=== PATIENT | male | born 1965 | race Caucasian/White ===

== ENCOUNTER 2024-01-10 14:56 | Outpatient (AMB) | payer OTHER, SELFPAY ==
--- NOTE | 2024-01-10 15:10 | HO.NEPHOV ---
HPI HPI Comments History of Present Illness Details I had the privilege of seeing Kunal in consultation for accelerated hypertension. He recently had left-sided hemiplegia due to recent subacute infarct in the right frontal lobe in September. Further imaging showed chronic lacunar infarcts bilaterally in the frontal lobe. He is not known to have diabetes. He had echocardiogram which showed normal ejection fraction. He had a bubble study which was negative. There was a question of him being lupus anticoagulant positive. He has seen Neurology and is going to be followed by Hematology. He has not seen any physicians for a long time prior to all these events. Currently he is compliant with the medications. He denies any history of sleep apnea, hypokalemia, hypercalcemia, uncontrolled thyroid disorders. He has not very strict with low-sodium diet. He was accompanied by his during this office visit. [facility]LY [facility], LATER [facility] Medical History (Updated 01/10/24 @ 15:47 by Ezio Gage MD) Accelerated hypertension Left hemiparesis Pure hypercholesterolemia Acute CVA (cerebrovascular accident) Surgical History (Updated 01/10/24 @ 15:14 by Malgorzata Dalton MA) History of hernia repair History of kidney surgery Family History (Updated 01/10/24 @ 15:15 by Malgorzata Dalton MA) Mother Cancer Father Heart disease Social History (Updated 01/10/24 @ 15:15 by Malgorzata Dalton MA) Alcohol intake: never Patient Tobacco Use Status: Never used Tobacco Vital Signs 01/10/24 15:11 Height 5 ft 8 in Weight 240 lb 2 oz BMI 36.5 BP 150/100 H Blood Pressure Location Lt brachial Position Sitting Pulse 78 Pulse Source Pulse Oximeter Pulse Oximetry (%) 98 Oxygen Delivery Method Room Air Physical Exam Vital Signs: Last Vital Signs Pulse 78 01/10/24 15:11 BP 150/100 H 01/10/24 15:11 Pulse Ox 98 01/10/24 15:11 Oxygen Delivery Method Room Air 01/10/24 15:11 BMI result Body Mass Index 36.5 Const General: comfortable and no acute distress Orientation/consciousness: patient oriented x3 HEENT Head: Yes normocephalic Mouth: Normal oral and palatal mucosa present Eyes EOM: EOMs intact bilaterally Neck Neck: Yes supple Resp Auscultation: clear to auscultation bilaterally Cardio Jugular venous distension: no JVD Rate: regular rate GI Palpation (GI): Soft to palpation Auscultation: normal bowel sounds Skin General skin exam: no rashes or lesions noted Neuro General: patient oriented x3 Extrem General: Yes no pedal edema Assessment & Plan Assessment & Plan (1) Accelerated hypertension: Code(s): I10 - Essential (primary) hypertension Plan Kunal most likely had hypertension for a long time. He never had proper medical follow-up prior to all these events. He is on multiple antihypertensive medications now with a better blood pressure control even though it has not optimal. He needs to be on a low-sodium diet. I started him on chlorthalidone 25 mg daily. If not done, I plan to do a Doppler of his renal arteries given his recent vascular events. He is on lipid-lowering agents. He may need a sleep study. He should continue lifestyle modification. Follow-up lab work ordered. I will continue to work him up rule out secondary etiology. Further management is pending evolving data. All his and his 's questions were answered. Follow-up appointment given. Orders: Orders Creatinine 01/17/24 I10 - Essential (primary) hypertension Blood Urea Nitrogen 01/17/24 I10 - Essential (primary) hypertension Calcium 01/17/24 I10 - Essential (primary) hypertension Electrolytes 01/17/24 I10 - Essential (primary) hypertension Protein Creatinine Ratio, Ur 01/17/24 I10 - Essential (primary) hypertension Medications: New chlorthalidone 25 mg PO DAILY 30 tabs 3RF 30 days Coding Level of Care Code New Pt Level 4 (43315) Diagnoses Accelerated hypertension I10 Results Reviewed Nephrology Results: Sodium 139 mmol/L (135-145) 01/17/24 Potassium 3.7 mmol/L (3.3-5.1) 01/17/24 Chloride 106 mmol/L (96-108) 01/17/24 Carbon Dioxide 29 mmol/L (22-29) 01/17/24 BUN 13 mg/dL (9-16) 01/17/24 Creatinine 0.89 mg/dL (0.5-1.4) 01/17/24 Calcium 9.0 mg/dL (8.4-10.2) 01/17/24 Urine Creatinine 220.97 mg/dL 01/17/24 Protein/Creatinin Ratio 0.05 (<0.2) 01/17/24
[2024-01-10 15:11] VITALS: BP 150/100; PULSE 78; O2SAT 98; BMI 36.5
== END 2024-01-10 15:54 | disposition home or self-care (01) ==
LOC: HO.HKAS 14:56
PROVIDERS: PCP Internal Medicine; Referring Provider Internal Medicine; Visit Provider Internal Medicine Nephrology
DX: I10 Essential (primary) hypertension (principal)
CPT/HCPCS: 99204

== ENCOUNTER → 2024-01-10 14:56 | Outpatient (BNVA) | payer OTHER, SELFPAY | PROVIDERS: PCP Internal Medicine; Referring Provider Internal Medicine; Visit Provider Internal Medicine Nephrology ==

== ENCOUNTER 2024-01-17 09:08 | Outpatient (REF) | payer OTHER, SELFPAY ==
[2024-01-17 17:05] LABS: Anion Gap 8 (12-20); Blood Urea Nitrogen 13 mg/dL (9-16); Carbon Dioxide 29 mmol/L (22-29); Chloride 106 mmol/L (96-108); Estimated Glomerular Filt Rate > 60; Potassium 3.7 mmol/L (3.3-5.1); Sodium 139 mmol/L (135-145)
[2024-01-17 17:17] LABS: Creatinine Urine 220.97 mg/dL; Protein/Creatinine Ratio, Ur 0.05 (<0.2); Total Protein Urine Random 12 mg/dL (<12)
== END 2024-01-17 09:09 | disposition home or self-care (01) ==
LOC: HO.HKASLDS 09:08
PROVIDERS: Visit Provider Internal Medicine Nephrology
DX: I10 Essential (primary) hypertension (principal)
CPT/HCPCS: 36415; 80051; 82310; 82565; 82570; 84156; 84520

== ENCOUNTER 2024-01-24 15:52 | Outpatient (AMB) | payer OTHER, SELFPAY ==
[2024-01-24 15:56] VITALS: BP 148/98; PULSE 97; O2SAT 98; BMI 36.4
--- NOTE | 2024-01-24 15:56 | HO.NEPHOV ---
HPI HPI Comments History of Present Illness Details I had the privilege of seeing Kunal in follow up for accelerated hypertension. He recently had left-sided hemiplegia due to recent subacute infarct in the right frontal lobe in September. Further imaging showed chronic lacunar infarcts bilaterally in the frontal lobe. He is not known to have diabetes. He had echocardiogram which showed normal ejection fraction. He had a bubble study which was negative. There was a question of him being lupus anticoagulant positive . He has seen Neurology and and was seen by Hematology. He has not seen any physicians for a long time prior to all these events. Currently he is compliant with the medications. He denies any history of sleep apnea, hypokalemia, hypercalcemia, uncontrolled thyroid disorders. He has not very strict with low-sodium diet. He feels tired. He was accompanied by his during this office visit. [facility]MERLY [facility] Medical History (Updated 01/10/24 @ 15:47 by Ezio Gage MD) Accelerated hypertension Left hemiparesis Pure hypercholesterolemia Acute CVA (cerebrovascular accident) Surgical History History of hernia repair History of kidney surgery Family History Mother Cancer Father Heart disease Social History Alcohol intake: never Patient Tobacco Use Status: Never used Tobacco Vital Signs 01/24/24 15:56 Height 5 ft 8 in Weight 239 lb 6 oz BMI 36.4 BP 148/98 H Blood Pressure Location Lt brachial Position Sitting Pulse 97 Pulse Source Pulse Oximeter Pulse Oximetry (%) 98 Oxygen Delivery Method Room Air Physical Exam Vital Signs: Last Vital Signs Pulse 97 01/24/24 15:56 BP 148/98 H 01/24/24 15:56 Pulse Ox 98 01/24/24 15:56 Oxygen Delivery Method Room Air 01/24/24 15:56 BMI result Body Mass Index 36.4 Const General: comfortable and no acute distress Orientation/consciousness: patient oriented x3 HEENT Head: Yes normocephalic Mouth: Normal oral and palatal mucosa present Eyes EOM: EOMs intact bilaterally Neck Neck: Yes supple Resp Auscultation: clear to auscultation bilaterally Cardio Jugular venous distension: no JVD Rate: regular rate GI Palpation (GI): Soft to palpation Auscultation: normal bowel sounds General: Yes no CVA tenderness Back/Spine/Pelvis Back: no CVA tenderness Skin General skin exam: no rashes or lesions noted Neuro General: patient oriented x3 Extrem General: Yes no pedal edema Assessment & Plan Assessment & Plan (1) Accelerated hypertension: Code(s): I10 - Essential (primary) hypertension Plan Kunal most likely had hypertension for a long time. He never had proper medical follow-up prior to all these events. He is on multiple antihypertensive medications now with a better blood pressure control even though it has not optimal. He needs to be on a low-sodium diet. I started him on chlorthalidone 25 mg daily at the last visit along with increase in Labetalol to 400 mg bid. I may change his Amlodipine to Nifedioine at next visit. I ordered Doppler of his renal arteries given his recent vascular events. He is on lipid-lowering agents. He should continue lifestyle modification. Follow-up lab work ordered. I will continue to work him up rule out secondary etiology. Further management is pending evolving data. All his and his 's questions were answered. All medications refilled. Follow-up appointment given. Medications: New lisinopril 40 mg PO DAILY 90 tabs 4RF atorvastatin 80 mg PO DAILY 90 tabs 0RF amlodipine 5 mg PO DAILY 90 tabs 3RF Changed From labetalol 400 mg PO BID To labetalol 400 mg (2 x 200 mg) PO BID 90 days 360 tabs 4RF From chlorthalidone 25 mg PO DAILY 30 days 30 tabs 3RF To chlorthalidone 25 mg PO DAILY 90 days 90 tabs 3RF Coding Level of Care Code Est Pt Level 4 (76140) Diagnoses Accelerated hypertension I10 Results Reviewed Nephrology Results: Sodium 139 mmol/L (135-145) 01/17/24 Potassium 3.7 mmol/L (3.3-5.1) 01/17/24 Chloride 106 mmol/L (96-108) 01/17/24 Carbon Dioxide 29 mmol/L (22-29) 01/17/24 BUN 13 mg/dL (9-16) 01/17/24 Creatinine 0.89 mg/dL (0.5-1.4) 01/17/24 Calcium 9.0 mg/dL (8.4-10.2) 01/17/24 Urine Creatinine 220.97 mg/dL 01/17/24 Protein/Creatinin Ratio 0.05 (<0.2) 01/17/24
== END 2024-01-24 16:43 | disposition home or self-care (01) ==
PROVIDERS: PCP Internal Medicine; Visit Provider Internal Medicine Nephrology
DX: I10 Essential (primary) hypertension (principal)
CPT/HCPCS: 99214

== ENCOUNTER → 2024-01-24 15:52 | Outpatient (BNVA) | payer OTHER, SELFPAY | PROVIDERS: PCP Internal Medicine; Visit Provider Internal Medicine Nephrology | DX: I10 Essential (primary) hypertension (principal) ==

== ENCOUNTER 2024-02-07 08:45 | Outpatient (REF) | payer OTHER, SELFPAY ==
--- NOTE | ~2024-02-07 | US_ITS ---
EXAMINATION: ULTRASOUND RENAL WITH DOPPLER CLINICAL INFORMATION: Hypertension COMPARISON: None. TECHNIQUE: Real-time grayscale, color Doppler, and duplex Doppler evaluation of the kidneys and renal vasculature was performed. FINDINGS: RENAL MEASUREMENTS: Right: 10.4 x 5.5 x 5.1 cm (Sag x AP x TV) Left: 10.5 x 5.6 x 4.5 cm (Sag x AP x TV) The renal parenchyma appears normal. No hydronephrosis or nephrolithiasis. DOPPLER INTERROGATION: Aorta: 127 cm/sec Right Main Renal Artery: Proximal: 115 cm/sec Mid: 110 cm/sec Distal: 145 cm/sec Right Segmental Renal Artery Resistive Indices: Upper: 0.6 Mid: 0.64 Lower: 0.67 Left Main Renal Artery: Proximal: 110 cm/sec Mid: 137 cm/sec Distal: 97 cm/sec Left Segmental Renal Artery Resistive Indices: Upper: 0.66 Mid: 0.66 Lower: 0.64 The bilateral renal veins are patent. US/US renal doppler IMPRESSION: Normal duplex ultrasound of the renal arteries. Bilateral kidneys appear normal
--- NOTE | ~2024-02-07 | US_ITS ---
EXAMINATION: ULTRASOUND RENAL WITH DOPPLER CLINICAL INFORMATION: Hypertension COMPARISON: None. TECHNIQUE: Real-time grayscale, color Doppler, and duplex Doppler evaluation of the kidneys and renal vasculature was performed. FINDINGS: RENAL MEASUREMENTS: Right: 10.4 x 5.5 x 5.1 cm (Sag x AP x TV) Left: 10.5 x 5.6 x 4.5 cm (Sag x AP x TV) The renal parenchyma appears normal. No hydronephrosis or nephrolithiasis. DOPPLER INTERROGATION: Aorta: 127 cm/sec Right Main Renal Artery: Proximal: 115 cm/sec Mid: 110 cm/sec Distal: 145 cm/sec Right Segmental Renal Artery Resistive Indices: Upper: 0.6 Mid: 0.64 Lower: 0.67 Left Main Renal Artery: Proximal: 110 cm/sec Mid: 137 cm/sec Distal: 97 cm/sec Left Segmental Renal Artery Resistive Indices: Upper: 0.66 Mid: 0.66 Lower: 0.64 The bilateral renal veins are patent. US/US renal BI IMPRESSION: Normal duplex ultrasound of the renal arteries. Bilateral kidneys appear normal
== END 2024-02-07 08:46 | disposition home or self-care (01) ==
LOC: HO.US 08:45
PROVIDERS: PCP Internal Medicine; Visit Provider Internal Medicine Nephrology
DX: I10 Essential (primary) hypertension (principal)
CPT/HCPCS: 76775; 93975

== ENCOUNTER 2024-03-06 10:01 | Outpatient (AMB) | payer OTHER, SELFPAY ==
[2024-03-06 10:07] VITALS: BP 90/60; PULSE 68; O2SAT 97; BMI 35.7
--- NOTE | 2024-03-06 10:07 | HO.NEPHOV ---
Vital Signs 03/06/24 10:07 Height 5 ft 8 in Weight 234 lb 8 oz BMI 35.7 BP 90/60 Blood Pressure Location Lt brachial Position Sitting Pulse 68 Pulse Source Pulse Oximeter Pulse Oximetry (%) 97 Oxygen Delivery Method Room Air Intake Visit Reasons: Low BP Telecommunication Engineer Required: No Accompanied by: Spouse Allergies No Known Allergies Allergy (Verified 03/06/24 10:11) HPI Comments Details: I had the privilege of seeing Kunal in follow up for accelerated hypertension. He has H/O left-sided hemiplegia due to subacute infarct in the right frontal lobe in September. Further imaging showed chronic lacunar infarcts bilaterally in the frontal lobe. He is not known to have diabetes. He had echocardiogram which showed normal ejection fraction. He had a bubble study which was negative. There was a question of him being lupus anticoagulant positive . He has seen Neurology and and was seen by Hematology. He has not seen any physicians for a long time prior to all these events. He recently had been feeling numbness on right side of face. His blood pressure was running low. He had MRI which showed new two strokes. He denies any history of sleep apnea, hypokalemia, hypercalcemia, uncontrolled thyroid disorders. He was accompanied by his during this office visit. [facility] Medical History (Updated 01/10/24 @ 15:47 by Ezio Gage MD) Accelerated hypertension Left hemiparesis Pure hypercholesterolemia Acute CVA (cerebrovascular accident) Surgical History History of hernia repair History of kidney surgery Family History Mother Cancer Father Heart disease Social History Alcohol intake: never Patient Tobacco Use Status: Never used Tobacco Physical Exam Vital Signs: Last Vital Signs Pulse 68 03/06/24 10:07 BP 90/60 03/06/24 10:07 Pulse Ox 97 03/06/24 10:07 Oxygen Delivery Method Room Air 03/06/24 10:07 BMI result Body Mass Index 35.7 Const General: comfortable and no acute distress Orientation/consciousness: patient oriented x3 HEENT Head: Yes normocephalic Mouth: Normal oral and palatal mucosa present Eyes EOM: EOMs intact bilaterally Neck Neck: Yes supple Resp Auscultation: clear to auscultation bilaterally Cardio Jugular venous distension: no JVD Rate: regular rate GI Palpation (GI): Soft to palpation Auscultation: normal bowel sounds General: Yes no CVA tenderness Back/Spine/Pelvis Back: no CVA tenderness Skin General skin exam: no rashes or lesions noted Neuro General: patient oriented x3 and moves all extremities Extrem General: Yes no pedal edema Results Reviewed Nephrology Results: Sodium 139 mmol/L (135-145) 01/17/24 Potassium 3.7 mmol/L (3.3-5.1) 01/17/24 Chloride 106 mmol/L (96-108) 01/17/24 Carbon Dioxide 29 mmol/L (22-29) 01/17/24 BUN 13 mg/dL (9-16) 01/17/24 Creatinine 0.89 mg/dL (0.5-1.4) 01/17/24 Calcium 9.0 mg/dL (8.4-10.2) 01/17/24 Urine Creatinine 220.97 mg/dL 01/17/24 Protein/Creatinin Ratio 0.05 (<0.2) 01/17/24 Renal US 02/07/24 Assessment & Plan Assessment & Plan (1) Accelerated hypertension: Code(s): I10 - Essential (primary) hypertension Category: Medical Plan Kunal most likely had hypertension for a long time. He never had proper medical follow-up prior to all these events. He is on multiple antihypertensive medications . His blood pressure has been running low with symptoms. I discontinued his amlodipine. He needs to be on a low-sodium diet. Doppler of his renal arteries was done, given his recent vascular events. It did not show any renal artery stenosis He is on lipid-lowering agents. He should continue lifestyle modification. I will continue to optimize his medications based on evolving data. All his and his 's questions were answered. Follow-up appointment given. Medications: Discontinued amlodipine Discontinued Reason: Doctor's Order 5 mg PO DAILY 90 tabs 3RF Coding Level of Care Code Est Pt Level 4 (55481) Diagnoses Accelerated hypertension I10
== END 2024-03-06 10:41 | disposition home or self-care (01) ==
PROVIDERS: PCP Internal Medicine; Visit Provider Internal Medicine Nephrology
DX: I10 Essential (primary) hypertension (principal)
CPT/HCPCS: 99214

== ENCOUNTER → 2024-03-06 10:01 | Outpatient (BNVA) | payer OTHER, SELFPAY | PROVIDERS: PCP Internal Medicine; Visit Provider Internal Medicine Nephrology ==

== ENCOUNTER 2024-03-20 09:13 | Outpatient (AMB) | payer OTHER, SELFPAY ==
--- NOTE | 2024-03-20 09:31 | HO.NEPHOV_ITS ---
Vital Signs 03/20/24 09:33 Height 5 ft 8 in Weight 237 lb BMI 36.0 BP 126/80 Blood Pressure Location Lt brachial Position Sitting Pulse 63 Pulse Source Pulse Oximeter Pulse Oximetry (%) 97 Oxygen Delivery Method Room Air Intake Visit Reasons: 2 wks follow up/ Conf w/ Broker Associate Required: No Accompanied by: Spouse Allergies No Known Allergies Allergy (Verified 03/20/24 09:34) HPI Comments Details: Kunal was in follow up for accelerated hypertension. He has H/O left-sided hemiplegia due to subacute infarct in the right frontal lobe in September. Further imaging showed chronic lacunar infarcts bilaterally in the frontal lobe. He is not known to have diabetes. He had echocardiogram which showed normal ejection fraction. He had a bubble study which was negative. There was a question of him being lupus anticoagulant positive . He has seen Neurology and and was seen by Hematology. He has not seen any physicians for a long time prior to all these events. He recently had been feeling numbness on right side of face. He had MRI which showed new two strokes. He denies any history of sleep apnea, hypokalemia, hypercalcemia, uncontrolled thyroid disorders. His BP is better after discontinuation of Amlodipine.He was accompanied by his during this office visit. [facility] Medical History (Updated 01/10/24 @ 15:47 by Ezio Gage MD) Accelerated hypertension Left hemiparesis Pure hypercholesterolemia Acute CVA (cerebrovascular accident) Surgical History History of hernia repair History of kidney surgery Family History Mother Cancer Father Heart disease Social History Alcohol intake: never Patient Tobacco Use Status: Never used Tobacco Physical Exam Vital Signs: Last Vital Signs Pulse 63 03/20/24 09:33 BP 126/80 03/20/24 09:33 Pulse Ox 97 03/20/24 09:33 Oxygen Delivery Method Room Air 03/20/24 09:33 BMI result Body Mass Index 36.0 Const General: comfortable and no acute distress Orientation/consciousness: patient oriented x3 HEENT Head: Yes normocephalic Mouth: Normal oral and palatal mucosa present Eyes EOM: EOMs intact bilaterally Neck Neck: Yes supple Resp Auscultation: clear to auscultation bilaterally Cardio Jugular venous distension: no JVD Rate: regular rate GI Palpation (GI): Soft to palpation Auscultation: normal bowel sounds General: Yes no CVA tenderness Back/Spine/Pelvis Back: no CVA tenderness Skin General skin exam: no rashes or lesions noted Neuro General: patient oriented x3 and moves all extremities Extrem General: Yes no pedal edema Results Reviewed Nephrology Results: Sodium 139 mmol/L (135-145) 01/17/24 Potassium 3.7 mmol/L (3.3-5.1) 01/17/24 Chloride 106 mmol/L (96-108) 01/17/24 Carbon Dioxide 29 mmol/L (22-29) 01/17/24 BUN 13 mg/dL (9-16) 01/17/24 Creatinine 0.89 mg/dL (0.5-1.4) 01/17/24 Calcium 9.0 mg/dL (8.4-10.2) 01/17/24 Urine Creatinine 220.97 mg/dL 01/17/24 Protein/Creatinin Ratio 0.05 (<0.2) 01/17/24 Renal US 02/07/24 Assessment & Plan Assessment & Plan (1) Accelerated hypertension: Code(s): I10 - Essential (primary) hypertension Category: Medical Plan Kunal most likely had hypertension for a long time. He never had proper medical follow-up prior to all these events. He is on multiple antihypertensive medications . His blood pressure has been running low with symptoms and I discontinued his amlodipine at the last visit. He needs to be on a low-sodium diet. Doppler of his renal arteries was done, given his recent vascular events. It did not show any renal artery stenosis He is on lipid-lowering agents. He should continue lifestyle modification. I reduced his Labetalol to 300 mg bid. He is being investigated for lupus anticoagulant. I will continue to optimize his medications based on evolving data. All his and his 's questions were answered. Follow-up appointment given. Coding Level of Care Code Est Pt Level 4 (33381) Diagnoses Accelerated hypertension I10
[2024-03-20 09:33] VITALS: BP 126/80; PULSE 63; O2SAT 97; BMI 36.0
== END 2024-03-20 09:54 | disposition home or self-care (01) ==
PROVIDERS: PCP Internal Medicine; Visit Provider Internal Medicine Nephrology
DX: I10 Essential (primary) hypertension (principal)
CPT/HCPCS: 99214

== ENCOUNTER → 2024-03-20 09:13 | Outpatient (BNVA) | payer OTHER, SELFPAY | PROVIDERS: PCP Internal Medicine; Visit Provider Internal Medicine Nephrology ==

== ENCOUNTER 2024-04-29 15:51 | Outpatient (AMB) | payer OTHER, SELFPAY ==
[2024-04-29 15:57] VITALS: BP 120/78; PULSE 71; O2SAT 6; BMI 35.9
--- NOTE | 2024-04-29 15:57 | HO.NEPHOV ---
Vital Signs 04/29/24 15:57 Height 5 ft 8 in Weight 236 lb BMI 35.9 BP 120/78 Blood Pressure Location Lt brachial Position Sitting Pulse 71 Pulse Source Pulse Oximeter Pulse Oximetry (%) 6 L Oxygen Delivery Method Room Air Intake Visit Reasons: 1 mon follow up/ Conf Physician Required: No Accompanied by: Self / Same As Patient Allergies No Known Allergies Allergy (Verified 04/29/24 16:00) HPI Comments Details: Kunal was in follow up for accelerated hypertension. He has H/O left-sided hemiplegia due to subacute infarct in the right frontal lobe in September. Further imaging showed chronic lacunar infarcts bilaterally in the frontal lobe. He is not known to have diabetes. He had echocardiogram which showed normal ejection fraction. He had a bubble study which was negative. There was a question of him being lupus anticoagulant positive . He has seen Neurology and and was seen by Hematology. He has not seen any physicians for a long time prior to all these events. He recently had been feeling numbness on right side of face. He had MRI which showed new two strokes. He denies any history of sleep apnea, hypokalemia, hypercalcemia, uncontrolled thyroid disorders. His BP is better after discontinuation of Amlodipine.He was accompanied by his during this office visit [facility] Medical History (Updated 01/10/24 @ 15:47 by Ezio Gage MD) Accelerated hypertension Left hemiparesis Pure hypercholesterolemia Acute CVA (cerebrovascular accident) Surgical History History of hernia repair History of kidney surgery Family History Mother Cancer Father Heart disease Social History Alcohol intake: never Patient Tobacco Use Status: Never used Tobacco Physical Exam Vital Signs: Last Vital Signs Pulse 71 04/29/24 15:57 BP 120/78 04/29/24 15:57 Pulse Ox 6 L 04/29/24 15:57 Oxygen Delivery Method Room Air 04/29/24 15:57 BMI result Body Mass Index 35.9 Const General: comfortable and no acute distress Orientation/consciousness: patient oriented x3 HEENT Head: Yes normocephalic Mouth: Normal oral and palatal mucosa present Eyes EOM: EOMs intact bilaterally Neck Neck: Yes supple Resp Auscultation: clear to auscultation bilaterally Cardio Jugular venous distension: no JVD Rate: regular rate GI Palpation (GI): Soft to palpation Auscultation: normal bowel sounds General: Yes no CVA tenderness Back/Spine/Pelvis Back: no CVA tenderness Skin General skin exam: no rashes or lesions noted Neuro General: patient oriented x3 and moves all extremities Extrem General: Yes no pedal edema Results Reviewed Nephrology Results: Sodium 139 mmol/L (135-145) 01/17/24 Potassium 3.7 mmol/L (3.3-5.1) 01/17/24 Chloride 106 mmol/L (96-108) 01/17/24 Carbon Dioxide 29 mmol/L (22-29) 01/17/24 BUN 13 mg/dL (9-16) 01/17/24 Creatinine 0.89 mg/dL (0.5-1.4) 01/17/24 Calcium 9.0 mg/dL (8.4-10.2) 01/17/24 Urine Creatinine 220.97 mg/dL 01/17/24 Protein/Creatinin Ratio 0.05 (<0.2) 01/17/24 Renal US 02/07/24 Assessment & Plan Assessment & Plan (1) Accelerated hypertension: Code(s): I10 - Essential (primary) hypertension Category: Medical Plan Kunal most likely had hypertension for a long time. He never had proper medical follow-up prior to all these events. He is on multiple antihypertensive medications . His blood pressure has been running low with symptoms and I discontinued his amlodipine at the last visit. He needs to be on a low-sodium diet. Doppler of his renal arteries was done, given his recent vascular events. It did not show any renal artery stenosis He is on lipid-lowering agents. He should continue lifestyle modification. I reduced his Labetalol to 300 mg bid. He is being investigated for lupus anticoagulant. I will continue to optimize his medications based on evolving data. All his questions were answered. Follow-up appointment given. Coding Level of Care Code Est Pt Level 4 (82223) Diagnoses Accelerated hypertension I10
== END 2024-04-29 16:24 | disposition home or self-care (01) ==
PROVIDERS: PCP Internal Medicine; Visit Provider Internal Medicine Nephrology
DX: I10 Essential (primary) hypertension (principal)
CPT/HCPCS: 99214

== ENCOUNTER → 2024-04-29 15:51 | Outpatient (BNVA) | payer OTHER, SELFPAY | PROVIDERS: PCP Internal Medicine; Visit Provider Internal Medicine Nephrology ==

== ENCOUNTER 2024-06-10 08:07 | Outpatient (REF) | payer OTHER, SELFPAY ==
[2024-06-10 09:36] LABS: Erythrocyte Sedimentation Rate 4 MM/HR (0-15)
[2024-06-10 09:58] LABS: Syphilis Screen Nonreactive (Nonreactive)
[2024-06-12 06:03] LABS: Lyme Abs Screen <0.90 index
[2024-06-17 09:48] LABS: Cardiolipin IgG Ab <2.0 GPL-U/mL; Cardiolipin IgM Ab 31.7 MPL-U/mL
[2024-06-17 10:14] LABS: Anti Nuclear Antibody Screen POSITIVE (NEGATIVE)
[2024-06-18 16:24] LABS: PTT (LAC) Screen 38 sec (<=40)
[2024-06-20 18:29] LABS: Factor V Leiden NEGATIVE
== END 2024-06-10 08:08 | disposition home or self-care (01) ==
LOC: HO.LAB 08:07
PROVIDERS: PCP Internal Medicine; Visit Provider Psychiatry & Neurology Neurology
DX: I63.9 Cerebral infarction, unspecified (principal)
CPT/HCPCS: 36415; 81241; 85597; 85598; 85613; 85652; 85730; 86038; 86039; 86147; 86617; 86618; 86780

== ENCOUNTER 2024-07-14 16:01 | Emergency (ER) | payer OTHER, SELFPAY ==
[2024-07-14] VITALS (7 sets, daily range): BP systolic 120–162; BP diastolic 74–97; PULSE 59–77; RESP 13–22; TEMP 36.6–37.2; O2SAT 97–99; BMI 34.2
--- NOTE | ~2024-07-14 | CT_ITS ---
EXAMINATION: CT ANGIOGRAM HEAD CT ANGIOGRAM NECK CLINICAL INFORMATION: right sided numbness COMPARISON: None. TECHNIQUE: Test bolus sequences followed by intravenous administration 70 mL of Omnipaque 350. Helical imaging was performed in the axial plane from the aortic arch to the skull vertex. Delayed postcontrast imaging of the head was also performed. The data was processed at the learning technologist's workstation for generation of MIP sequences. Angled MIPs and volume rendered reformatted images were also generated at an offline 3D workstation. Stenoses are assessed in accordance with Murphy et al. Quantification of Carotid Stenosis on CT Angiography. AJR 2006. 27(1):13-19. [address] CT examination was performed using dose optimization techniques as appropriate, variously including the following: *Automated exposure control *Adjustment of mA and/or kV according to patient size (this includes techniques or standardized protocols for targeted exams where dose is matched to indication/reason for exam; i.e. extremities or head) *Use of iterative reconstruction technique DLP: 1524 mGy-cm FINDINGS: CT HEAD: Mild generalized parenchymal volume loss. Patchy periventricular and deep white matter hypoattenuation is nonspecific may reflect mild chronic microangiopathy. Multiple chronic appearing lacunar infarcts within the right centrum semiovale, right body of the corpus callosum, right lentiform nucleus, bilateral thalami, and chronic appearing cortical/subcortical infarct within the high right precentral gyrus. Linear gliosis extends inferiorly from the right precentral gyrus infarct into the right lord radiata. No acute intracranial hemorrhage or extra-axial fluid collection. No acute territorial edematous infarct. No mass lesion, significant mass effect, or herniation pattern. Partially empty sella. No pathologic intra-axial enhancement or regional oligemia. The orbits are grossly normal. Paranasal sinuses and mastoid air cells are well aerated. Osseous structures are intact. CTA HEAD: No hemodynamically significant stenosis or occlusion in the anterior or posterior circulation. Mild patchy calcific plaque along the carotid siphons mildly ectatic proximal cavernous segment and mild right supraclinoid ICA stenosis. Dominant left A1 MIGUEL. 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 Focal fenestration of the proximal basilar artery, a normal anatomic variant. No aneurysms and no high flow vascular malformations. Timing of the contrast bolus allows assessment of the major dural venous sinuses, which all opacify normally CTA NECK: Common origin of the innominate and left common carotid arteries. The left vertebral artery arises directly from the aortic arch. Should not artifact limits assessment of the great vessels. Origins of the great vessels are widely patent. The common carotid arteries are widely patent. Atherosclerotic plaque at the carotid bifurcations without stenosis. Widely patent internal carotid arteries. Retropharyngeal course of the bilateral common carotid and proximal to mid internal carotid arteries. The right vertebral artery is dominant. Limited diagnostic assessment of the vertebral artery origins due to motion artifact. Both vertebral arteries are widely patent throughout their extracranial cervical course. CT NECK: Multiple maxillary and mandibular dental caries can be correlated with dental examination. Mild cervical spondylosis. CT/CT angio head neck stroke IMPRESSION: 1. Multiple chronic appearing lacunar infarcts within the right centrum semiovale, right body of the corpus callosum, right lentiform nucleus, bilateral thalami, and chronic appearing cortical/subcortical infarct within the high right precentral gyrus. Linear gliosis extends inferiorly from the right precentral gyrus infarct into the right lord radiata. No large territorial edematous infarct or acute intracranial hemorrhage. 2. No acute arterial occlusion or hemodynamically significant stenosis within the head or neck. 3. Multiple maxillary and mandibular dental caries can be correlated with dental examination. Electronically signed by: Tamy Ramos MD 07/14/2024 05:06 PM EDT
--- NOTE | ~2024-07-14 | CT_ITS ---
EXAMINATION: CT HEAD WITHOUT CONTRAST/STROKE ALERT CLINICAL INFORMATION: Right-sided numbness. COMPARISON: None available. TECHNIQUE: Contiguous axial imaging was performed from the skull-base to vertex without intravenous administration of contrast. This CT examination was performed using dose optimization techniques as appropriate, variously including the following: *Automated exposure control *Adjustment of mA and/or kV according to patient size (this includes techniques or standardized protocols for targeted exams where dose is matched to indication/reason for exam; i.e. extremities or head) *Use of iterative reconstruction technique DLP: 756 mGy-cm FINDINGS: Ventricles, sulci and cisterns are mildly dilated especially the ventricles. A 0.4 cm chronic lacunar infarct is seen at lateral left thalamus. At a higher level, a 0.7 cm mid right lord radiata chronic lacunar infarct is present. Directly superior to mid right lateral ventricle, a 0.7 cm chronic lacunar infarct in right frontal centrum semiovale is present. There is no midline shift, no abnormal intra- or extra- axial fluid accumulation. Tadeo and white matter differentiation is normal. Bone window images show no evidence of skull fracture. CT/CT head for stroke IMPRESSION: 1. Mild cerebral atrophy and ventriculomegaly. 2. Bilateral chronic lacunar infarcts are present. 3. No intracranial hemorrhage or skull fracture is seen. 4. No evidence of space occupying lesion could be found. 5. The current plain CT scan of the brain shows no diagnostic evidence of acute cerebral infarction. This critical result was discussed with Dr. Ja Sloan on 07/14/2024 at 1638 hours and it was ascertained that the content and urgency of this report was understood at the time of direct communication. Electronically signed by: Ligia Barnett MD 07/14/2024 04:40 PM EDT
--- NOTE | 2024-07-14 16:12 | ECG_ITS ---
Test Reason : STROKE PROTOCOL Blood Pressure : / mmHG Vent. Rate : 072 BPM Atrial Rate : 072 BPM P-R Int : 154 ms QRS Dur : 092 ms QT Int : 414 ms P-R-T Axes : 032 -15 005 degrees QTc Int : 453 ms Normal sinus rhythm Possible Anterior infarct , age undetermined Abnormal ECG No previous ECGs available Referred By: Too Hester Electronically Signed By:PAPITO CARRIZALES
--- NOTE | 2024-07-14 16:13 | ED.GENADULT ---
HPI - General Adult General Chief complaint: Neuro Symptoms/Deficit Stated complaint: Stroke symptoms? Time Seen by Provider: 07/14/24 16:30 History of Present Illness ED Provider: Luther VELASQUEZ narrative: The patient is a 58-year-old male who has a history of previous strokes. He apparently was 1st hospitalized for a stroke at [facility] in September of 2023. He apparently had left-sided weakness at that time and was found to have a right MCA stroke. He apparently did fairly well following that stroke although he was felt to possibly have some mild cognitive deficits. He was hospitalized again at [facility] in February of 2024. At that point he was complaining of right facial numbness and mild right upper extremity weakness that has been going on for 2 or 3 weeks prior to the hospitalization. He was hospitalized after an outpatient MRI showed new right frontal and left cerebellar subacute infarctions. The etiology of the strokes was not clearly determined. He has since followed up with [facility]. Today the patient developed an abrupt onset headache associated with a sense of numbness on the right side of his face. He says that he thinks he has had similar headaches in the past and he thinks that these headaches were present when he was hospitalized in September and in February but he says that he has had other episodes of similar headaches when he has not gone to the hospital. Today he has had no trouble speaking. He has not had any weakness in his extremities. Other than the headache and the sense of numbness on the right side of his face he does not have any other neurological symptoms. Related Data Home Medications ?Medication ?Instructions ?Recorded ?Confirmed aspirin 81 mg tablet,delayed 81 mg PO DAILY 01/10/24 release aspirin 25 mg-dipyridamole 200 mg 1 cap PO BID 03/06/24 capsule,ext.release 12 hr multiphase Previous Rx's ?Medication ?Instructions ?Recorded atorvastatin 80 mg tablet 80 mg PO DAILY #90 tabs 01/24/24 chlorthalidone 25 mg tablet 25 mg PO DAILY 90 days #90 tabs 01/24/24 labetalol 200 mg tablet 400 mg (2 x 200 mg) PO BID 90 days 01/24/24 #360 tabs lisinopril 40 mg tablet 40 mg PO DAILY #90 tabs 01/24/24 Allergies Allergy/AdvReac Type Severity Reaction Status Date / Time No Known Allergies Allergy Verified 07/14/24 16:07 Review of Systems Review of Systems: Yes all other systems are reviewed and are negative [facility] Past Medical History Medical History (Updated 07/14/24 @ 19:26 by Ja Sloan MD) Accelerated hypertension Left hemiparesis Pure hypercholesterolemia Acute CVA (cerebrovascular accident) Surgical History History of hernia repair History of kidney surgery Family History Family History Mother Cancer Father Heart disease Social History Social History Alcohol intake: never Patient Tobacco Use Status: Never used Tobacco Smoked in Last 30 Days: No Use of substances other than those prescribed or required for medical reasons: No Advance Directives: No Advance Directives Information Provided: No Physical Exam ED Vital Signs: Vital Signs - 24 hr 07/14/24 16:03 07/14/24 16:47 07/14/24 17:05 Temperature 98.9 F Pulse Rate 59 77 69 Respiratory Rate 18 16 22 H Blood Pressure 146/97 H 162/85 H 143/82 H Pulse Oximetry 98 97 Oxygen Delivery Method Room Air Room Air 07/14/24 17:18 07/14/24 17:33 07/14/24 17:48 Temperature Pulse Rate 71 69 63 Respiratory Rate 17 13 15 Blood Pressure 131/74 120/76 135/75 Pulse Oximetry Oxygen Delivery Method 07/14/24 19:37 Temperature 98 F Pulse Rate 65 Respiratory Rate 16 Blood Pressure 135/83 Pulse Oximetry 99 Oxygen Delivery Method Room Air BMI result Body Mass Index 34.2 Const Other: The patient is awake and alert. He looks somewhat chronically ill. He has a subdued demeanor. He does not seem obviously acutely ill. HENMT Other: Face is symmetrical. Mucous membranes moist. Eyes Other: Pupils are round equal, conjunctivae are clear, extraocular movements intact, lateral gaze is intact, visual lloyd are intact. Neck Other: No JVD, neck is supple Resp Effort & Inspection: normal respiratory effort Auscultation: clear to auscultation bilaterally Cardio Rate: regular rate Rhythm: regular rhythm Heart sounds: S1 normal heart sound present and S2 normal heart sound present GI Other: Abdomen is soft and nontender Skin Other: Skin is dry and unremarkable Neuro Other: The patient is awake and alert. He can tell me the correct age and the correct month. He follows commands appropriately. Lateral gaze is intact. Visual lloyd are intact. Face is symmetrical. Tongue is midline. He moves his extremities symmetrically with normal strength. No pronator drift. Finger-nose is normal. Heel-bautista is normal. He reports some slight diminished sensation to the right cheek but otherwise his sensation is intact. Overall he has a fairly normal neurological exam. Course Course Course Narrative: RME, this is a rapid medical exam performed by Bj Hester please refer to primary provider for complete H&P- 58-year-old male past medical history significant for hypertension, previous CVA presents for evaluation of numbness on the right side of his face as well as right upper extremity. The patient is currently following with Dr. Zamarripa, neurology. He had a right MCA stroke in September of last year. The patient currently has an NIH stroke score of 0. Onset of symptoms was 1 hour prior to arrival. Plan for stroke workup Medications Administered Discontinued Medications Generic Name Dose Route Start Last Admin Trade Name Freq PRN Reason Stop Dose Admin Lactated Ringer's 1,000 mls @ 999 mls/hr 07/14/24 17:15 07/14/24 19:37 Lr IV 07/14/24 18:15 Infused .Q1H1M CARLOS Infusion Iohexol 70 ml 07/14/24 16:44 07/14/24 16:45 Iohexol 350 Mg/Ml 100 Ml Infus..Btl IV 07/14/24 16:45 70 ml ONCE ONE Administration Metoclopramide HCl 10 mg 07/14/24 17:03 07/14/24 17:42 Metoclopramide Hcl 10 Mg/2 Ml Vial IVPUSH 07/14/24 17:04 10 mg ONCE ONE Administration Medical Decision Making Medical Decision Making [facility] Narrative: The patient is a 58-year-old male with a history of multiple small strokes in the past. The etiology these strokes has not been entirely elucidated aside from possibly being related to hypertension. He is on aspirin and clopidogrel. He has seen Dr. Zamarripa of Neurology in currently is waiting for a transesophageal echo as part of his longer-term workup. He has previously had a transthoracic echo with a bubble study that was negative. He does not have any history of known atrial fibrillation. The patient presented today with an abrupt onset headache that was associated with a sense of numbness on the right side of his face. There is no associated weakness and there was no associated speech difficulty. The patient says that he has had headaches like this before and he thinks that he had headaches associated with the 2 hospitalizations at [facility] in the last year but he thinks he has also had similar headaches when he did not present to the hospital. The patient's noncontrast head CT shows no acute findings. There are old lacunar infarcts. The patient is CT angiogram of the head and neck shows no acute arterial occlusion or hemodynamically significant stenosis within the head or the neck. The patient's blood pressure was not markedly elevated in the emergency department today. Given the patient's description of the headache I had some sense that the patient might be having a migraine rather than a recurrent stroke. He was given 10 mg of metoclopramide and 1 L of IV crystalloid. He had resolution of his headache. He still had a vague sense of possible numbness on the right side of the face but no other neurological complaints. I was able to ambulate the patient. He ambulates at his baseline. His neurological exam remains quite reassuring and his demeanor is cheerful. My overall impression is that it is unlikely that he has a significant recurrent stroke today. This may be a migraine syndrome. I think he may be discharged to continue his aspirin and clopidogrel and to follow up with his regular doctor in his neurologist and to contact the cardiology office to try to expedite the transesophageal echo his neurologist has recommended. Lab Data 07/14/24 16:33 07/14/24 16:51 Labs: Lab Results 07/14/24 07/14/24 07/14/24 Range/Units 16:33 16:41 16:51 WBC 10.6 (4.8-10.8) X10*3/uL RBC 4.14 L (4.60-5.80) X10*6/uL Hgb 13.3 L (14.0-18.0) g/dl Hct 37.4 L (42.0-52.0) % MCV 90.3 (80.0-98.0) fL MCH 32.1 (27.0-33.0) pg MCHC 35.6 (31.0-36.0) g/dl RDW 12.7 (11.0-16.0) % Plt Count 397 (160-400) X10*3/uL MPV 9.5 (9.4-12.4) fL Immature Gran % (Auto) 0.7 H (0.0-0.4) % Neut % (Auto) 66.3 (45-73) % Lymph % (Auto) 23.4 (20-40) % Allen % (Auto) 6.7 (2-11) % Eos % (Auto) 2.2 (0-4) % Baso % (Auto) 0.7 (0-2) % Lymph # (Auto) 2.5 (1.2-4.9) X10*3/uL Allen # (Auto) 0.7 (0.1-1.2) X10*3/uL Eos # (Auto) 0.2 (0.0-0.4) X10*3/uL Baso # (Auto) 0.1 (0.0-0.2) X10*3/uL Abs Immat Gran (auto) 0.07 H (0.00-0.03) X10*3/uL Absolute Neuts (auto) 7.0 (2.0-8.3) x10*3/uL Absolute Nucleated RBC 0.000 (0.0-0.012) X10*3/uL Nucleated RBC % (auto) 0.0 (0.0-0.2) /100WBC PT 12.5 H (10.9-12.4) SEC Whole Blood PT 14.1 H (11.1-13.5) sec INR 1.1 (0.9-1.1) Whole Blood INR 1.2 H (0.9-1.1) APTT 32.4 (26.0-36.8) SEC Sodium 140 (135-145) mmol/L Potassium 3.2 L (3.3-5.1) mmol/L Chloride 106 (96-108) mmol/L Carbon Dioxide 24 (22-29) mmol/L Anion Gap 13 (12-20) BUN 17 H (9-16) mg/dL Creatinine 1.04 (0.5-1.4) mg/dL Estim Creat Clear Calc 92.4 Estimated GFR > 60 POC Glucose (60-115) mg/dL Random Glucose 96 (60-115) mg/dL Calcium 9.1 (8.4-10.2) mg/dL Troponin I High Sens 18.3 (<3.5-35.0) ng/L Triglycerides 32 (<150) mg/dL Cholesterol 119 (<200) mg/dL LDL Cholesterol, Calc 73 (<100) mg/dL HDL Cholesterol 40 L (>40) mg/dL 07/14/24 Range/Units 17:27 WBC (4.8-10.8) X10*3/uL RBC (4.60-5.80) X10*6/uL Hgb (14.0-18.0) g/dl Hct (42.0-52.0) % MCV (80.0-98.0) fL MCH (27.0-33.0) pg MCHC (31.0-36.0) g/dl RDW (11.0-16.0) % Plt Count (160-400) X10*3/uL MPV (9.4-12.4) fL Immature Gran % (Auto) (0.0-0.4) % Neut % (Auto) (45-73) % Lymph % (Auto) (20-40) % Allen % (Auto) (2-11) % Eos % (Auto) (0-4) % Baso % (Auto) (0-2) % Lymph # (Auto) (1.2-4.9) X10*3/uL Allen # (Auto) (0.1-1.2) X10*3/uL Eos # (Auto) (0.0-0.4) X10*3/uL Baso # (Auto) (0.0-0.2) X10*3/uL Abs Immat Gran (auto) (0.00-0.03) X10*3/uL Absolute Neuts (auto) (2.0-8.3) x10*3/uL Absolute Nucleated RBC (0.0-0.012) X10*3/uL Nucleated RBC % (auto) (0.0-0.2) /100WBC PT (10.9-12.4) SEC Whole Blood PT (11.1-13.5) sec INR (0.9-1.1) Whole Blood INR (0.9-1.1) APTT (26.0-36.8) SEC Sodium (135-145) mmol/L Potassium (3.3-5.1) mmol/L Chloride (96-108) mmol/L Carbon Dioxide (22-29) mmol/L Anion Gap (12-20) BUN (9-16) mg/dL Creatinine (0.5-1.4) mg/dL Estim Creat Clear Calc Estimated GFR POC Glucose 86 (60-115) mg/dL Random Glucose (60-115) mg/dL Calcium (8.4-10.2) mg/dL Troponin I High Sens (<3.5-35.0) ng/L Triglycerides (<150) mg/dL Cholesterol (<200) mg/dL LDL Cholesterol, Calc (<100) mg/dL HDL Cholesterol (>40) mg/dL Discharge Plan Discharge Clinical Impression: Headache, Right facial numbness Patient Disposition: Home, Self-Care Additional Instructions: Your testing in the emergency room today and your overall evaluation seems reassuring. You may have had a migraine episodes a day. Please continue your regular medications. Please contact the cardiology office tomorrow to see if you can expedite an appointment to arrange for a transesophageal echocardiogram as recommended by your neurologist. Please stay in touch with your neurologist and your regular doctor for additional advice as needed. If at any point you feel significantly worse please return to the emergency room for further evaluation. Prescriptions: No Action lisinopril 40 mg tablet 40 mg PO DAILY Qty: 90 4RF labetalol 200 mg tablet 400 mg PO BID 90 Days Qty: 360 4RF chlorthalidone 25 mg tablet 25 mg PO DAILY 90 Days Qty: 90 3RF atorvastatin 80 mg tablet 80 mg PO DAILY Qty: 90 0RF aspirin-dipyridamole 25-200 mg capsule, ER multiphase 12 hr 1 cap PO BID aspirin 81 mg tablet,delayed release (DR/EC) 81 mg PO DAILY Referrals: [facility] [Provider Group] (Need for transesophageal ECHO to complete workup for cryptogenic strokes) Rush Martin MD [Physician] - (Headache) Sanket Zamarripa MD [Physician] - Interventions: ED Discharge Assessment Last Done: 07/14/24 19:37 Discharge Date/Time: 07/14/24 19:38 Print Language: Azerbaijani
[2024-07-14 16:38] LABS: MANUAL DIFF FLAG NO
[2024-07-14 16:45] LABS: Prothrombin Time Whole Bld POC 14.1 sec (11.1-13.5); ~PT, ~INR - Anti Coag Clinic 1.2 (0.9-1.1)
[2024-07-14] MEDS: iohexoL 350 MG/ML 100 ML INFUS..BTL 70 ML IV (16:45)
[2024-07-14 16:48] LABS: Basophils Absolute Auto 0.1 X10*3/uL (0.0-0.2); Basophils Percent Auto 0.7 % (0-2); Eosinophils Absolute Auto 0.2 X10*3/uL (0.0-0.4); Eosinophils Percent Auto 2.2 % (0-4); Hematocrit 37.4 % (42.0-52.0); Hemoglobin 13.3 g/dl (14.0-18.0); Imm Gran Abs Auto 0.07 X10*3/uL (0.00-0.03); Imm Gran Pct Auto 0.7 % (0.0-0.4); Lymphocytes Absolute Auto 2.5 X10*3/uL (1.2-4.9); Lymphocytes Percent Auto 23.4 % (20-40); Mean Corpuscular HGB Conc 35.6 g/dl (31.0-36.0); Mean Corpuscular Hemoglobin 32.1 pg (27.0-33.0); Mean Corpuscular Volume 90.3 fL (80.0-98.0); Mean Platelet Volume 9.5 fL (9.4-12.4); Monocytes Absolute Auto 0.7 X10*3/uL (0.1-1.2); Monocytes Percent Auto 6.7 % (2-11); Neutrophils Percent Auto 66.3 % (45-73); Platelet Count 397 X10*3/uL (160-400); Red Blood Count 4.14 X10*6/uL (4.60-5.80); Red Cell Distribution Width 12.7 % (11.0-16.0); White Blood Count 10.6 X10*3/uL (4.8-10.8)
[2024-07-14 16:58] LABS: Troponin-I High Sensitivity 18.3 ng/L (<3.5-35.0)
[2024-07-14 17:09] LABS: INTERNATIONAL NORM RATIO 1.1 (0.9-1.1); Prothrombin Time 12.5 SEC (10.9-12.4)
[2024-07-14 17:11] LABS: Anion Gap 13 (12-20); Blood Urea Nitrogen 17 mg/dL (9-16); Calcium 9.1 mg/dL (8.4-10.2); Carbon Dioxide 24 mmol/L (22-29); Chloride 106 mmol/L (96-108); Cholesterol 119 mg/dL (<200); Creatinine Clr Calc Pharmacy 92.4; Estimated Glomerular Filt Rate > 60; Glucose Random 96 mg/dL (60-115); HDL Cholesterol 40 mg/dL (>40); LDL Cholesterol Calculated 73 mg/dL (<100); Partial Thromboplastin Time 32.4 SEC (26.0-36.8); Potassium 3.2 mmol/L (3.3-5.1); Sodium 140 mmol/L (135-145); Triglycerides 32 mg/dL (<150)
[2024-07-14 17:14] LABS: Stroke Lab Use COMPLETE
[2024-07-14 17:33] LABS: Glucose, Whole Blood 86 mg/dL (60-115)
--- NOTE | 2024-07-14 17:34 | MHC.EDTECH ---
Patient changed over after the CT, EKG taken and read by the provider, INR and POC completed, blood work and vitals completed as well, and pt rest quietly in his bed and call gilbert within PT reach
[2024-07-14] MEDS: Metoclopramide HCl 10 MG/2 ML VIAL IVPUSH (17:42)
[2024-07-14] MEDS: Lactated Ringers 1,000 ML 999 ML IV (17:48)
== END 2024-07-14 19:38 | disposition home or self-care (01) ==
PROVIDERS: Physician Assistant; Emergency Provider Emergency Medicine
DX: R51.9 Headache, unspecified (principal); R20.0 Anesthesia of skin; I10 Essential (primary) hypertension; E78.00 Pure hypercholesterolemia, unspecified; R29.700 NIHSS score 0; Z86.73 Personal history of transient ischemic attack (TIA), and cerebral infarction without residual deficits; Z79.899 Other long term (current) drug therapy; Z79.82 Long term (current) use of aspirin
CPT/HCPCS: 36415; 70450; 70496; 70498; 80048; 80061; 82947; 84484; 85025; 85610; 85730; 93005; 96361; 96374; 99284; 99285; J2765; J7120; Q9967

== ENCOUNTER 2024-09-17 13:51 | Outpatient (AMB) | payer OTHER, SELFPAY ==
--- NOTE | 2024-09-17 13:58 | A.OFFVIS_ITS ---
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 Per neurology documentation, multiple cerebral infarctions thought to be possibly embolic. MRI apparently had subacute right frontal and left cerebellar infarcts and chronic right cerebral infarcts. CTA brain and neck had right posterior cerebral artery stenosis but otherwise unremarkable. From the cardiac standpoint, he has seen [facility] several years ago but nothing recently. It seems that he had chest pain syndrome in the setting of traumatic news of mom's diagnosis of lung cancer. In that setting, he underwent diagnostic catheterization which angiographically normal coronaries. Thought to be a very mild form of stress-induced cardiomyopathy. No other documented cardiac issues. Otherwise, has hypertension followed by Nephrology. Let diabetic. Not a smoker. Denies any drug use. FOR[facility]LY [facility], [facility] Medical History (Updated 09/17/24 @ 14:21 by Carrington Chakraborty MD) Accelerated hypertension Left hemiparesis Pure hypercholesterolemia Acute CVA (cerebrovascular accident) Surgical History History of hernia repair History of kidney surgery Family History Mother Cancer Father Heart disease Social History Alcohol intake: never Patient Tobacco Use Status: Never used Tobacco Review of Systems Const Denies chills, Denies daytime sleepiness, Denies fatigue, Denies fever(s), Denies poor appetite, Denies snoring, Denies stops breathing during sleep, Denies weakness, Denies weight gain and Denies weight loss Eyes Denies loss of vision ENT Denies dizziness and Denies hearing loss Card Denies chest pain, Denies irregular heart rhythm, Denies claudication, Denies leg edema, Denies lightheadedness, Denies palpitations, Denies dyspnea on exertion and Denies orthopnea Resp Denies cough, Denies excessive phlegm production, Denies dyspnea on exertion, Denies snoring and Denies wheezing GI Denies abdominal pain, Denies hematochezia, Denies change in bowel habits, Denies nausea and Denies vomiting Denies dysuria and Denies urinary frequency Musc Denies arthralgias, Denies muscle weakness, Denies numbness and Denies other Skin/Breast Denies nail changes and Denies rash Neuro Denies Abnormal speech present, Denies dizziness, Denies loss of vision, Denies memory loss, Denies numbness and Denies weakness Psych Denies depression and Denies memory loss Endo Denies fatigue and Denies palpitations Luis Fernando/Lymph Denies easy bruising Aller/Immun Denies wheezing Physical Exam Vital Signs: Last Vital Signs Pulse 66 09/17/24 13:59 BP 122/68 09/17/24 13:59 BMI result Body Mass Index 34.7 Const General: comfortable and no acute distress Orientation/consciousness: patient oriented x3 HEENT Other: Unremarkable Head: Yes normal to inspection Neck Neck: Yes normal visual inspection Chest Chest palpation & inspection: normal inspection of the chest Resp Auscultation: clear to auscultation bilaterally Cardio Palpation: normal PMI Heart sounds: S1 normal heart sound present, S2 normal heart sound present, no gallops, no murmurs and no rubs GI Palpation (GI): Soft to palpation Back/Spine/Pelvis Other: unremarkable Skin General skin exam: no rashes or lesions noted Neuro General: patient oriented x3 Speech: No Abnormal speech present Extrem General: Yes normal to inspection Psych Mental Status: mental status grossly normal Assessment & Plan Assessment & Plan (1) Embolic stroke: Code(s): I63.9 - Cerebral infarction, unspecified Category: Medical Plan Per echocardiogram at [facility], preserved LVEF, no wall motion abnormalities and otherwise unremarkable. Bubble study was negative. CT chest/abdomen/pelvis had shown no evidence of malignancy. 2 week monitor was negative for atrial fibrillation. Overall, suspected embolic stroke that needs evaluation. Discussed about further workup including a transesophageal echocardiogram with bubble study and patient agrees. We will schedule that in the near future. If this is normal, then we can proceed with implantable loop recorder. Discussed with significant other. They agree with the above. Orders: Orders CA echo transesophageal Today I63.9 - Cerebral infarction, unspecified Coding Level of Care Code New Pt Level 4 (71541) Diagnoses Embolic stroke I63.9
[2024-09-17 13:59] VITALS: BP 122/68; PULSE 66; BMI 34.7
== END 2024-09-17 14:35 | disposition home or self-care (01) ==
PROVIDERS: Visit Provider Internal Medicine
DX: I63.9 Cerebral infarction, unspecified (principal)
CPT/HCPCS: 99204

== ENCOUNTER → 2024-09-17 13:51 | Outpatient (BNVA) | payer OTHER, SELFPAY | PROVIDERS: Visit Provider Internal Medicine ==

== ENCOUNTER 2024-10-01 09:09 | Day surgery (SDC) | payer OTHER, SELFPAY ==
--- NOTE | 2024-09-29 14:08 | HO.ANESPROP2 ---
Documented by User: Diamante Alvarez NP 09/29/24 14:12 HPI - Anesthesia Eval Consult details Narrative: 59yo M for Transesophageal Echocardiogram with bubble study Plavix referred by Neurology for cardiac evaluation. Per neurology documentation, multiple cerebral infarctions thought to be possibly embolic. MRI apparently had subacute right frontal and left cerebellar infarcts and chronic right cerebral infarcts. CTA brain and neck had right posterior cerebral artery stenosis but otherwise unremarkable. PMFSH Active Problems Active Problems: All Active Problems Embolic stroke (Acute) Accelerated hypertension (Acute) Past Medical History Medical History (Updated 10/01/24 @ 09:28 by Dorys Santos RN) Cognitive impairment Myocardial infarct Accelerated hypertension Left hemiparesis Pure hypercholesterolemia Acute CVA (cerebrovascular accident) Family History Family History Mother Cancer Father Heart disease Surgical History Surgical History History of hernia repair History of kidney surgery Social History Social History Alcohol intake: never Patient Tobacco Use Status: Never used Tobacco Use of substances other than those prescribed or required for medical reasons: No Are you DNR?: No Advance Directives: No Advance Directives Information Provided: Yes Poor oral hygiene: No Meds Allergies Allergy/AdvReac Type Severity Reaction Status Date / Time No Known Allergies Allergy Verified 07/14/24 16:07 Home Medications ?Medication ?Instructions ?Recorded ?Confirmed ?Last Taken ?Type aspirin 81 mg tablet,delayed 81 mg PO DAILY 01/10/24 10/01/24 09/30/24 History release clopidogrel 75 mg tablet 75 mg PO DAILY 09/17/24 10/01/24 09/30/24 History Exam Pertinent Lab Results Pertinent Lab Results: Laboratory Tests 07/14/24 07/14/24 16:33 16:51 WBC 10.6 Hgb 13.3 L Hct 37.4 L Plt Count 397 Sodium 140 Potassium 3.2 L Chloride 106 Carbon Dioxide 24 BUN 17 H Creatinine 1.04 Narrative Narrative: EKG 06/2024 Vent. Rate : 072 BPM Atrial Rate : 072 BPM P-R Int : 154 ms QRS Dur : 092 ms QT Int : 414 ms P-R-T Axes : 032 -15 005 degrees QTc Int : 453 ms Normal sinus rhythm Possible Anterior infarct , age undetermined Abnormal ECG No previous ECGs available Assessment and Plan Assessment Anesthesia Assessment: Chart Reviewed Documented by User: Chey Thao MD 10/01/24 09:54 [facility] Past Medical History Medical History (Updated 10/01/24 @ 09:28 by Dorys Santos RN) Cognitive impairment Myocardial infarct Accelerated hypertension Left hemiparesis Pure hypercholesterolemia Acute CVA (cerebrovascular accident) Family History Family History Mother Cancer Father Heart disease Family history of problems with anesthesia: No Surgical History Surgical History History of hernia repair History of kidney surgery History of Problems with Anesthesia: No Social History Social History Alcohol intake: never Patient Tobacco Use Status: Never used Tobacco Use of substances other than those prescribed or required for medical reasons: No Are you DNR?: No Advance Directives: No Advance Directives Information Provided: Yes Poor oral hygiene: No Meds Allergies Allergy/AdvReac Type Severity Reaction Status Date / Time No Known Allergies Allergy Verified 07/14/24 16:07 Home Medications ?Medication ?Instructions ?Recorded ?Confirmed ?Last Taken ?Type aspirin 81 mg tablet,delayed 81 mg PO DAILY 01/10/24 10/01/24 09/30/24 History release clopidogrel 75 mg tablet 75 mg PO DAILY 09/17/24 10/01/24 09/30/24 History Exam Airway Mallampati Class: II (missing a couple) TM Dist: >3cm Neck ROM: Full Heart: rrr Lungs: cta Assessment and Plan Assessment Anesthesia Assessment: Anesthesia Plan Discussed Final Anesthetic Review Family History of Problems with Anesthesia: No History of Problems with Anesthesia: No NPO: Yes ASA Class: II Final Preanesthetic Review: No Changes in Pt Med Stat, Meds/Allgs Chart Reviewed and Consent Obtained/Reviewed Patient Risk: Intermediate Procedure Risk: Intermediate Anesthetic Plan Anesthetic Plan: MAC: Disposition: Standard PACU
[2024-10-01] VITALS (7 sets, daily range): BP systolic 115–171; BP diastolic 74–98; PULSE 62–76; RESP 16; TEMP 36.3–36.5; O2SAT 95–98; BMI 35.3
[2024-10-01] MEDS: Lactated Ringers 1,000 ML 100 ML IVCONT (09:54)
--- NOTE | 2024-10-01 09:58 | CA_ITS ---
Transesophageal Echocardiogram Patient (Last, First, Middle): Favian Francois, Gender: Male Date of : 1965 Age: 59 Procedure Date: 10/01/2024 Procedure Type: Transesophageal Echocardiogram Location: OP Height: 175.26 cm Weight: 108.41 kg BSA: 2.23 m2 Heart Rate: 76 bpm Screen Print Operator: Referring MD: Carrington Chakraborty MD Symptoms: I63.9 - Cerebral infarction, unspecified Conclusion: ??? No cardiac source of emboli noted. Findings Procedure Information Consent was obtained prior to the procedure. Pre ABA oral cavity was checked and revealed no overcrowding. The adult 3D probe was passed with no difficulty. Left Ventricle Normal left ventricular cavity size. The left ventricular systolic function is normal. The visually estimated ejection fraction is between 55-60%. There is no evidence of regional wall motion abnormalities. Right Ventricle Normal right ventricular cavity size and systolic function. Atria There is no evidence of a thrombus in the left atrial appendage. There is no evidence of interatrial shunt by color Doppler and contrast. Bubble study performed with rest and valsalva. Aortic Valve There is a normal trileaflet aortic valve. There is no aortic valve stenosis. There is no aortic valve regurgitation. Mitral Valve The mitral valve appears normal. There is mild mitral valve regurgitation. There is no mitral valve stenosis. Tricuspid Valve Normal tricuspid valve structure. There is no tricuspid valve regurgitation. Great Vessels The asc aorta is normal in size. Small plaque is seen in the descending thoracic aorta. Venous The inferior vena cava was not well visualized. Pericardium/Pleural There is no evidence of pericardial effusion. Prior Study Comparison No prior study available for comparison. Recommendations, Care & Conclusions No cardiac source of emboli noted. Updated by Carrington Chakraborty on 04:08 PM with Status of Final Carrington Chakraborty MD electronically signed on 10/03/2024 4:08:32 PM with status of Final
--- NOTE | 2024-10-01 10:10 | MHC.SHP ---
Pre-Procedural Eval Section A - 24 Hr Update-Section A only Date of Service: 10/01/24 The patient is an INPATIENT: No Section B - Complete if H&P > 30 days Chief Complaint: Cerebral infarction, unspecified Allergies: Allergies Allergy/AdvReac Type Severity Reaction Status Date / Time No Known Allergies Allergy Verified 07/14/24 16:07 Plan I have reviewed the history and physical and performed a pertinent physical examination on my patient. No changes have occurred unless specified. Time Spent With Patient Time: Total time managing care of this patient today ____ minutes.
== END 2024-10-01 11:45 | disposition home or self-care (01) ==
PROVIDERS: Visit Provider Internal Medicine
PROC: (CPT 93312; principal; 2024-10-01 11:00)
DX: I63.9 Cerebral infarction, unspecified (principal); I66.21 Occlusion and stenosis of right posterior cerebral artery; I10 Essential (primary) hypertension; G81.94 Hemiplegia, unspecified affecting left nondominant side; E78.00 Pure hypercholesterolemia, unspecified; Z79.82 Long term (current) use of aspirin; Z79.899 Other long term (current) drug therapy
CPT/HCPCS: 93312; J2003; J2250; J2704

== ENCOUNTER → 2024-10-01 09:58 | Outpatient (BNV) | payer OTHER, SELFPAY | PROVIDERS: Visit Provider Internal Medicine | DX: I34.0 Nonrheumatic mitral (valve) insufficiency (principal); I63.9 Cerebral infarction, unspecified | CPT/HCPCS: 76376; 93312; 93320; 93325 ==

== ENCOUNTER 2024-10-17 11:33 | Outpatient (REF) | payer OTHER, SELFPAY ==
[2024-10-17 13:48] VITALS: BP 133/78; PULSE 60; RESP 18; TEMP 36.3; O2SAT 99; BMI 38.4
--- NOTE | 2024-10-17 14:20 | P.BOP_ITS ---
Brief Operative Note Date of Service: 10/17/24 Pre-op diagnosis: Cryptogenic stroke Post-op diagnosis: same Procedure: Placement of implantable loop recorder Implants: After obtaining full informed consent patient was brought to the minor surgery suite. Patient was then laid on the operating table in supine position. The precordial area was then prepped and draped in a sterile fashion. Patient was then given 2% lidocaine intradermally and subcutaneously in the 4th intercostal space. A small incision was then made. A [employer] implantable loop recorder with serial number [id number] was then implanted using modified Seldinger technique. Measured R-wave at 0.23 mV with good signal. Good P-waves were identified. The wound was then closed with Steri-Strips. Sterile Pressure d ressing was then applied Surgeon: Dewey Delgado MD Anesthesia: local Was an Laboratory Inspector used for this Procedure?: No Estimated blood loss (mL): 1 Pathology: none sent Condition: stable Disposition: same day
== END 2024-10-17 11:34 | disposition home or self-care (01) ==
LOC: HO.MS 11:33
PROVIDERS: Visit Provider Internal Medicine Cardiovascular Disease
PROC: (CPT 33285; principal; 2024-10-17 13:30)
DX: I63.9 Cerebral infarction, unspecified (principal)
CPT/HCPCS: 33285; C1764; J2004

== ENCOUNTER → 2024-10-17 11:33 | Outpatient (BNV) | payer OTHER, SELFPAY | PROVIDERS: Visit Provider Internal Medicine Cardiovascular Disease | DX: I63.9 Cerebral infarction, unspecified (principal); Z45.09 Encounter for adjustment and management of other cardiac device | CPT/HCPCS: 33285 ==

== ENCOUNTER → 2024-10-22 09:11 | Outpatient (BNVA) | payer OTHER, SELFPAY | PROVIDERS: Visit Provider Internal Medicine Cardiovascular Disease ==

== ENCOUNTER → 2024-11-16 23:59 | Outpatient (BNV) | payer OTHER, SELFPAY ==
--- NOTE | 2024-11-19 18:54 | MHC.OFFVIS ---
Intake Visit Reasons: Remote ILR check- [employer] Allergies No Known Allergies Allergy (Verified 07/14/24 16:07) [facility] Medical History (Updated 11/19/24 @ 18:55 by Carrington Chakraborty MD) Cognitive impairment Myocardial infarct Accelerated hypertension Left hemiparesis Pure hypercholesterolemia Acute CVA (cerebrovascular accident) Surgical History History of hernia repair History of kidney surgery Family History Mother Cancer Father Heart disease Social History Alcohol intake: never Patient Tobacco Use Status: Never used Tobacco Office Procedures Cardiac Device Check Cardiac Device Check Details: Date of service 11/16/2024; in the current monitoring period, there is no evidence of atrial fibrillation or other significant arrhythmias. [id number] Cardiac Interrogation, subcut cardiac rhythm monitor Procedure code (CPT) selection complete Assessment & Plan Assessment & Plan (1) Implantable loop recorder present: Code(s): Z95.818 - Presence of other cardiac implants and grafts Category: Medical (2) Embolic stroke: Code(s): I63.9 - Cerebral infarction, unspecified Category: Medical Plan x Coding Level of Care Code Procedure Only Diagnoses Implantable loop recorder present Z95.818 Embolic stroke I63.9 CPT Codes Cardiac Device Check - Cardiac Device 16: [id number] Cardiac Interrogation, subcut cardiac rhythm monitor ([id number])
== END ==
PROVIDERS: Visit Provider Internal Medicine
DX: I63.9 Cerebral infarction, unspecified (principal); Z95.818 Presence of other cardiac implants and grafts
CPT/HCPCS: 93298

== ENCOUNTER 2024-11-25 15:47 | Outpatient (AMB) | payer OTHER, SELFPAY ==
--- NOTE | 2024-11-25 15:53 | HO.NEPHOV ---
Vital Signs 11/25/24 15:55 Height 5 ft 9 in Weight 237 lb BMI 35.0 BP 120/84 Blood Pressure Location Rt brachial Position Sitting Pulse 72 Pulse Source Pulse Oximeter Pulse Oximetry (%) 99 Oxygen Delivery Method Room Air Intake Visit Reasons: 6 mon follow up/ LVM Records Officer Required: No Accompanied by: Spouse Allergies No Known Allergies Allergy (Verified 11/25/24 15:55) HPI Comments Details: Kunal was in follow up for accelerated hypertension. He has H/O left-sided hemiplegia due to subacute infarct in the right frontal lobe in September. Further imaging showed chronic lacunar infarcts bilaterally in the frontal lobe. He is not known to have diabetes. He had echocardiogram which showed normal ejection fraction. He had a bubble study which was negative. There was a question of him being lupus anticoagulant positive . He has seen Neurology and and was seen by Hematology. He has not seen any physicians for a long time prior to all these events. He recently had been feeling numbness on right side of face. He had MRI which showed new two strokes. He denies any history of sleep apnea, hypokalemia, hypercalcemia, uncontrolled thyroid disorders. He recently had seizure activity. He was accompanied by his during this office visit [facility] Medical History (Updated 11/25/24 @ 16:13 by Ezio Gage MD) Cognitive impairment Myocardial infarct Accelerated hypertension Left hemiparesis Pure hypercholesterolemia Acute CVA (cerebrovascular accident) Surgical History History of hernia repair History of kidney surgery Family History Mother Cancer Father Heart disease Social History Alcohol intake: never Patient Tobacco Use Status: Never used Tobacco Review of Systems Const All systems reviewed & are unremarkable except as noted in HPI and below Physical Exam Vital Signs: Last Vital Signs Pulse 72 11/25/24 15:55 BP 120/84 11/25/24 15:55 Pulse Ox 99 11/25/24 15:55 Oxygen Delivery Method Room Air 11/25/24 15:55 BMI result Body Mass Index 35.0 Const General: comfortable and no acute distress Orientation/consciousness: patient oriented x3 HEENT Head: Yes normocephalic Mouth: Normal oral and palatal mucosa present Eyes EOM: EOMs intact bilaterally Neck Neck: Yes supple Resp Auscultation: clear to auscultation bilaterally Cardio Jugular venous distension: no JVD Rate: regular rate GI Palpation (GI): Soft to palpation Auscultation: normal bowel sounds General: Yes no CVA tenderness Back/Spine/Pelvis Back: no CVA tenderness Skin General skin exam: no rashes or lesions noted Neuro General: patient oriented x3 and moves all extremities Extrem General: Yes no pedal edema Results Reviewed Nephrology Results: Hgb 13.3 g/dl (14.0-18.0) L 07/14/24 WBC 10.6 X10*3/uL (4.8-10.8) 07/14/24 Plt Count 397 X10*3/uL (160-400) 07/14/24 Sodium 140 mmol/L (135-145) 07/14/24 Potassium 3.2 mmol/L (3.3-5.1) L 07/14/24 Chloride 106 mmol/L (96-108) 07/14/24 Carbon Dioxide 24 mmol/L (22-29) 07/14/24 BUN 17 mg/dL (9-16) H 07/14/24 Creatinine 1.04 mg/dL (0.5-1.4) 07/14/24 Calcium 9.1 mg/dL (8.4-10.2) 07/14/24 Assessment & Plan Assessment & Plan (1) Hypertension: Code(s): I10 - Essential (primary) hypertension Category: Medical Qualifiers: Hypertension type: primary hypertension Qualified Code(s): I10 - Essential (primary) hypertension Plan Kunal most likely had hypertension for a long time. He never had proper medical follow-up prior to all these events. He is on multiple antihypertensive medications . He needs to be on a low-sodium diet. Doppler of his renal arteries was done, given his recent vascular events. It did not show any renal artery stenosis He is on lipid-lowering agents. He should continue lifestyle modification. His BP is well controlled on current medications. I did not make any medication changes. All his questions were answered. Follow-up appointment given. Orders: Orders Electrolytes 6 Months I10 - Essential (primary) hypertension Creatinine 6 Months I10 - Essential (primary) hypertension Blood Urea Nitrogen 6 Months I10 - Essential (primary) hypertension Protein Creatinine Ratio, Ur 6 Months I10 - Essential (primary) hypertension Coding Level of Care Code Est Pt Level 4 (94491) Diagnoses Primary hypertension I10 Hypertension type: primary hypertension
[2024-11-25 15:55] VITALS: BP 120/84; PULSE 72; O2SAT 99; BMI 35.0
--- OUTSIDE RECORDS SUMMARY | 2024-11-25 16:18 | XMS_ITS | Clinical Summary ---
Author Organization [facility] Address [address] [place] [address] Care Team Providers Care Mold Holder Name Role Phone Rush Martin MD Primary Care Provider Unavailab le Allergies No known active allergies Medications Medication Sig Dispensed Refills Start Date End Date Status aspirin EC 81 MG tablet Take by mouth daily. 0 Active chlorthalidone (HYGROTON) 25 MG tablet Take 1 tablet (25 mg total) by mouth daily. 0 Active atorvastatin (LIPITOR) tablet 80 mg Take 1 tablet (80 mg total) by mouth daily. 0 Active amLODIPine (NORVASC) tablet 5 mg Take by mouth daily. 0 Active lisinopril (PRINIVIL,ZESTRIL) tablet 40 mg Take 1 tablet (40 mg total) by mouth daily. 0 Active LABETALOL HCL PO Take 400 mg by mouth 2 (two) times a day. 0 Active Family History Medical History Relation Name Comments Lung cancer Mother Relation Name Status Comments Mother Social History Tobacco Use Types Packs/Day Years Used Date Smoking Tobacco: Never Smokeless Tobacco: Never Tobacco Cessation:Counseling Given: Not Answered Alcohol Use Standard Drinks/Week Comments Not Currently 0 (1 standard drink = 0.6 oz pur e alcohol) Sex and Gender Information Value Date Recorded Sex Assigned at Male 05/29/2024 5:23 PM EDT Gender Identity Not on file Sexual Orientation Not on file Job Start Date Occupation Industry Not on file Not on file Not on file Last Filed Vital Signs Vital Sign Reading Time Taken Comments Blood Pressure 136/77 01/15/2024 11:19 AM EDT Pulse 62 01/15/2024 11:19 AM EDT Temperature 36.6 ??C (97.8 ??F) 01/15/2024 1 1:19 AM EDT Respiratory Rate - - Oxygen Saturation 100% 01/15/2024 11: 19 AM EDT Inhaled Oxygen Concentration - - Weight 108.1 kg (238 lb 6.4 oz) 024 11:19 AM EDT Height 172.7 cm (5' 8 ) 01/15/2024 11:1 9 AM EDT Body Mass Index 36.25 01/15/2024 11:19 AM EDT Plan of Treatment Health Maintenance Due Date Last Done Comments Hepatitis B Vaccines (1 of 3 - 3-dose series) 1965 Depression Screening 1977 Preventative Health Evaluation 1983 DTap / Tdap / Td (1 - Tdap) 1984 Colon Cancer Screening (Colonoscopy) 2010 Shingrix-Zoster Vaccine (1 o f 2) 2015 COVID-19 Vaccine (3 - 2023-2 5 season) 2024 02/05/2021, 01/15/2021 Influenza Vaccine (#1) 2024 3, 07/22/2020, 09/29/2016 Pneumococcal Vaccine Aged Out 09/29/2016 No long er eligible based on patient's age to complete this topic Hepatitis C Screening Completed 07/22/2020 RSV Ped < 20 months Aged Out No longe r eligible based on patient's age to complete this topic Care Teams Mold Holder Relationship Specialty Start Date End Date Rush Martin MD PCP - General Internal Medicine 12/24/23
== END 2024-11-25 16:25 | disposition home or self-care (01) ==
PROVIDERS: PCP Internal Medicine; Visit Provider Internal Medicine Nephrology
DX: I10 Essential (primary) hypertension (principal)
CPT/HCPCS: 99214

== ENCOUNTER 2024-12-12 13:55 | Outpatient (AMB) | payer OTHER, SELFPAY ==
[2024-12-12 13:58] VITALS: BP 114/70; PULSE 74; BMI 35.2
--- NOTE | 2024-12-12 13:58 | A.OFFVIS_ITS ---
Vital Signs 12/12/24 13:58 Height 5 ft 9 in Weight 238 lb 1.588 oz BMI 35.2 BP 114/70 Blood Pressure Location Lt brachial Position Sitting Pulse 74 Pulse Source Pulse Oximeter Intake Visit Reasons: f/up [employer] Required: No Inspector And Mender: Inspector And Mender Present Allergies No Known Allergies Allergy (Verified 12/12/24 14:06) Medication List - Last Reconciled 12/12/24 by Helen Orta NP-C amlodipine 5 mg PO DAILY aspirin 81 mg PO DAILY chlorthalidone 25 mg PO DAILY 90 days clopidogrel 75 mg PO DAILY labetalol 400 mg (2 x 200 mg) PO BID 90 days lisinopril 40 mg PO DAILY HPI HPI f/up: Details: Christiano is a 59-year-old male with past medical history of embolic stroke, hypertension who recently had a syncopal episode and was evaluated at [facility] and found to have influenza. He now presents for follow-up. Today he states that he has fully recovered from his influenza illness. He has never had syncopal episodes in the past. He does not recall feeling anything unusual prior to the episode. His states she heard a noise in the kitchen and found him on the floor. She says he was incontinent and foaming at his mouth. She believes he may have had a seizure. Upon awakening he was able to recognize who she was but today he says he does not recall any of the events from that time period. He still has some residual weakness in his arms from his CVAs, left greater than right. He ambulates with a cane. No chest discomfort at rest or with activity. No shortness of breath, PND, orthopnea. He has some chronic nonpitting edema in his right lower extremity. No bleeding issues reported. Compliant with meds. present. [facility] Medical History Cognitive impairment Myocardial infarct Accelerated hypertension Left hemiparesis Pure hypercholesterolemia Acute CVA (cerebrovascular accident) Surgical History History of hernia repair History of kidney surgery Family History Mother Cancer Father Heart disease Social History Alcohol intake: never Patient Tobacco Use Status: Never used Tobacco Review of Systems Const All systems reviewed & are unremarkable except as noted in HPI and below ENT Denies dizziness Card Denies chest pain, Denies chest pain at rest, Denies chest pain with activity, Denies rapid heart rate, Denies pedal edema, Denies edema, Denies leg edema, Denies lightheadedness, Denies palpitations, Denies dyspnea, Denies dyspnea on exertion and Denies orthopnea Resp Denies cough, Denies dyspnea and Denies dyspnea on exertion GI Denies hematochezia and Denies change in stool character Musc Details: weakness in extremeties from prior CVA Denies abnormal gait, Denies limited range of motion, Denies muscle cramps, Reports muscle weakness, Denies numbness, Denies radiating pain into limb, Denies stiffness and Denies tingling Neuro Denies abnormal gait, Denies dizziness, Denies numbness and Denies tingling Endo Denies palpitations Physical Exam Vital Signs: Last Vital Signs Pulse 74 12/12/24 13:58 BP 114/70 12/12/24 13:58 BMI result Body Mass Index 35.2 Const General: cooperative, healthy appearing, comfortable and no acute distress Orientation/consciousness: patient oriented x3 Neck Neck: Yes normal visual inspection and Yes no JVD Resp Effort & Inspection: normal respiratory effort Auscultation: clear to auscultation bilaterally, no rales, no rhonchi and no wheezes Cardio Rate: regular rate Rhythm: regular rhythm Heart sounds: S1 normal heart sound present, S2 normal heart sound present, no murmurs and no rubs Neuro General: patient oriented x3 Extrem Other: nonpitting swelling in ankles, R > L General: Yes normal to inspection, No no pedal edema and No calf tenderness Psych Appearance: grossly normal Mental Status: mental status grossly normal Speech and movement: Normal speech and movement present Office Procedures Cardiac Device Check Cardiac Device Check Details: Auto I.D. ILR interrogation today shows no arrhythmia, no AF, no pauses or Tyson. Battery life good. [id number] Cardiac Device Check, subcut cardiac rhythm monitor Procedure code (CPT) selection complete Assessment & Plan Assessment & Plan (1) Syncope: Code(s): R55 - Syncope and collapse Category: Medical Plan: Syncopal episode that occurred in the setting of influenza, likely dehydration. Notes from [facility] reviewed and he was thought to have orthostatic hypotension. was present at the event and believes he may have had a seizure. Patient was referred to Neurology and is awaiting an appointment. He has had no recurrent events. Loop recorder interrogated today showing no arrhythmia, pauses, bradycardia, AFib since time of implant. Reviewed this with him. Blood pressure low normal today. Instructed on maintaining good hydration and use caution when going sitting to standing. Will continue to monitor his ILR remotely. Recommend periodic home blood pressure checks. He follows with Nephrology for blood pressure control. Cardiology follow-up 6 months, sooner if needed. (2) Implantable loop recorder present: Code(s): Z95.818 - Presence of other cardiac implants and grafts Category: Medical Plan: Loop recorder site benign. Remote monitoring in use. (3) Embolic stroke: Code(s): I63.9 - Cerebral infarction, unspecified Category: Medical (4) Hypertension: Code(s): I10 - Essential (primary) hypertension Category: Medical Qualifiers: Hypertension type: primary hypertension Qualified Code(s): I10 - Essential (primary) hypertension Plan: Controlled. Followed by Nephrology. (5) Hospital discharge follow-up: Code(s): Z09 - Encounter for follow-up examination after completed treatment for conditions other than malignant neoplasm Category: Medical Plan: [facility] records reviewed. Plan Time spent on chart review, documentation, interview and assessment Coding Level of Care Code Est Pt Level 4 (61788) Complex EM visit Add On G2211 Diagnoses Syncope R55 Implantable loop recorder present Z95.818 Embolic stroke I63.9 Primary hypertension I10 Hypertension type: primary hypertension Hospital discharge follow-up Z09 CPT Codes Cardiac Device Check - Cardiac Device 7: [id number] Cardiac Device Check, subcut cardiac rhythm monitor ([id number]) Time Spent (min) 30
--- OUTSIDE RECORDS SUMMARY | 2024-12-12 16:09 | XMS_ITS | Clinical Summary ---
Author Organization [facility] Address [address] [place] [address] Care Team Providers Care [employer] Medical Sergeant Name Role Phone Rush Martin MD Primary [...] age to complete this topic Care Teams [employer] Relationship Specialty Start Date End Date Rsuh Martin MD PCP - General Internal Medicine 12/24/23
== END 2024-12-12 14:55 | disposition home or self-care (01) ==
PROVIDERS: Visit Provider Nurse Practitioner Family
DX: R55 Syncope and collapse (principal); Z95.818 Presence of other cardiac implants and grafts; I63.9 Cerebral infarction, unspecified; I10 Essential (primary) hypertension; Z09 Encounter for follow-up examination after completed treatment for conditions other than malignant neoplasm
CPT/HCPCS: 93285; 99214; G2211

== ENCOUNTER → 2024-12-12 13:55 | Outpatient (BNVA) | payer OTHER, SELFPAY | PROVIDERS: Visit Provider Nurse Practitioner Family | DX: Z09 Encounter for follow-up examination after completed treatment for conditions other than malignant neoplasm (principal); R55 Syncope and collapse; I10 Essential (primary) hypertension; Z86.73 Personal history of transient ischemic attack (TIA), and cerebral infarction without residual deficits; Z45.09 Encounter for adjustment and management of other cardiac device | CPT/HCPCS: 99212 ==

== ENCOUNTER → 2024-12-15 23:59 | Outpatient (BNV) | payer OTHER, SELFPAY ==
--- NOTE | 2024-12-22 14:21 | A.OFFVIS_ITS ---
Intake Visit Reasons: REmote ILR- Medtronic Allergies No Known Allergies Allergy (Verified 12/12/24 14:06) [facility] Medical History Cognitive impairment Myocardial infarct Accelerated hypertension Left hemiparesis Pure hypercholesterolemia Acute CVA (cerebrovascular accident) Surgical History History of hernia repair History of kidney surgery Family History Mother Cancer Father Heart disease Social History Alcohol intake: never Patient Tobacco Use Status: Never used Tobacco Office Procedures Cardiac Device Check Cardiac Device Check Details: Date of service 12/15/2024; in the current monitoring period, there is no evidence of atrial fibrillation. [id number]-Bjjrbr Cardiac Interrogation, subcut cardiac rhythm monitor Procedure code (CPT) selection complete Assessment & Plan Assessment & Plan (1) Implantable loop recorder present: Code(s): Z95.818 - Presence of other cardiac implants and grafts Category: Medical (2) Embolic stroke: Code(s): I63.9 - Cerebral infarction, unspecified Category: Medical Plan x Coding Level of Care Code Procedure Only Diagnoses Implantable loop recorder present Z95.818 Embolic stroke I63.9 CPT Codes Cardiac Device Check - Cardiac Device 16: 98259-[id number] Cardiac Interrogation, subcut cardiac rhythm monitor ([id number])
== END ==
PROVIDERS: Visit Provider Internal Medicine
DX: I63.9 Cerebral infarction, unspecified (principal); Z95.818 Presence of other cardiac implants and grafts
CPT/HCPCS: 93298

== ENCOUNTER → 2025-01-15 23:59 | Outpatient (BNV) | payer OTHER, SELFPAY ==
--- NOTE | 2025-01-21 18:58 | MHC.OFFVIS ---
Intake Visit Reasons: REmote ILR- Medtronic Allergies No Known Allergies Allergy (Verified 12/12/24 14:06) [facility] Medical History Cognitive impairment Myocardial infarct Accelerated hypertension Left hemiparesis Pure hypercholesterolemia Acute CVA (cerebrovascular accident) Surgical History History of hernia repair History of kidney surgery Family History Mother Cancer Father Heart disease Social History Alcohol intake: never Patient Tobacco Use Status: Never used Tobacco Office Procedures Cardiac Device Check Cardiac Device Check Details: Date of service 01/15/2025; in the current monitoring period, there is no evidence of atrial fibrillation. PVC 0.1%. 26870-Zvwmdp Cardiac Interrogation, subcut cardiac rhythm monitor Procedure code (CPT) selection complete Assessment & Plan Assessment & Plan (1) Implantable loop recorder present: Code(s): Z95.818 - Presence of other cardiac implants and grafts Category: Medical (2) Embolic stroke: Code(s): I63.9 - Cerebral infarction, unspecified Category: Medical Plan x Coding Level of Care Code Procedure Only Diagnoses Implantable loop recorder present Z95.818 Embolic stroke I63.9 CPT Codes Cardiac Device Check - Cardiac Device 16: 76426-Mepirg Cardiac Interrogation, subcut cardiac rhythm monitor ([id number])
== END ==
PROVIDERS: Visit Provider Internal Medicine
DX: I63.9 Cerebral infarction, unspecified (principal); Z95.818 Presence of other cardiac implants and grafts
CPT/HCPCS: 93298

== ENCOUNTER → 2025-02-14 23:59 | Outpatient (BNV) | payer OTHER, SELFPAY ==
--- NOTE | 2025-02-19 20:58 | A.OFFVIS_ITS ---
Intake Visit Reasons: REmote ILR- Medtronic Allergies No Known Allergies Allergy (Verified 12/12/24 14:06) [facility] Medical History Cognitive impairment Myocardial infarct Accelerated hypertension Left hemiparesis Pure hypercholesterolemia Acute CVA (cerebrovascular accident) Surgical History History of hernia repair History of kidney surgery Family History Mother Cancer Father Heart disease Social History Alcohol intake: never Patient Tobacco Use Status: Never used Tobacco Office Procedures Cardiac Device Check Cardiac Device Check Details: Date of service 02/14/2025; in the current monitoring period, there is no evidence of atrial fibrillation. 95467-Wbuotz Cardiac Interrogation, subcut cardiac rhythm monitor Procedure code (CPT) selection complete Assessment & Plan Assessment & Plan (1) Implantable loop recorder present: Code(s): Z95.818 - Presence of other cardiac implants and grafts Category: Medical (2) Embolic stroke: Code(s): I63.9 - Cerebral infarction, unspecified Category: Medical Plan x Coding Level of Care Code Procedure Only Diagnoses Implantable loop recorder present Z95.818 Embolic stroke I63.9 CPT Codes Cardiac Device Check - Cardiac Device 16: 44707-Hjgiie Cardiac Interrogation, subcut cardiac rhythm monitor ([id number])
== END ==
PROVIDERS: Visit Provider Internal Medicine
DX: I63.9 Cerebral infarction, unspecified (principal); Z95.818 Presence of other cardiac implants and grafts
CPT/HCPCS: 93298

== ENCOUNTER → 2025-03-13 14:49 | Outpatient (BNV) | payer OTHER, SELFPAY | PROVIDERS: PCP Internal Medicine; Referring Provider Internal Medicine Nephrology; Visit Provider Internal Medicine | DX: D68.69 Other thrombophilia (principal) | CPT/HCPCS: 99204; G2211 ==

== ENCOUNTER → 2025-03-16 23:59 | Outpatient (BNV) | payer OTHER, SELFPAY ==
--- NOTE | 2025-03-25 12:31 | MHC.OFFVIS ---
Intake Visit Reasons: Remote ILR check- Medtronic Allergies No Known Allergies Allergy (Verified 12/12/24 14:06) [facility] Medical History Cognitive impairment Myocardial infarct Accelerated hypertension Left hemiparesis Pure hypercholesterolemia Acute CVA (cerebrovascular accident) Surgical History History of hernia repair History of kidney surgery Family History Mother Cancer Lung cancer Father Heart disease Social History Household Members: Spouse and Children Alcohol intake: never Patient Tobacco Use Status: Never used Tobacco Use of substances other than those prescribed or required for medical reasons: No Do you have thoughts of harming others: None Do you have a plan to hurt others: No Plan service: Yes Current occupational status: unemployed Office Procedures Cardiac Device Check Cardiac Device Check Details: Date of service 03/16/2025; in the current monitoring period, there is no evidence of atrial fibrillation. PVCs 0.1%. 88017-Caifsi Cardiac Interrogation, subcut cardiac rhythm monitor Procedure code (CPT) selection complete Assessment & Plan Assessment & Plan (1) Implantable loop recorder present: Code(s): Z95.818 - Presence of other cardiac implants and grafts Category: Medical (2) Embolic stroke: Code(s): I63.9 - Cerebral infarction, unspecified Category: Medical Plan x Coding Level of Care Code Procedure Only Diagnoses Implantable loop recorder present Z95.818 Embolic stroke I63.9 CPT Codes Cardiac Device Check - Cardiac Device 16: 84455-[id number] Cardiac Interrogation, subcut cardiac rhythm monitor ([id number])
== END ==
PROVIDERS: PCP Internal Medicine; Visit Provider Internal Medicine
DX: I63.9 Cerebral infarction, unspecified (principal); Z95.818 Presence of other cardiac implants and grafts
CPT/HCPCS: 93298

== ENCOUNTER → 2025-04-15 23:59 | Outpatient (BNV) | payer OTHER, SELFPAY ==
--- NOTE | 2025-04-28 20:47 | MHC.OFFVIS ---
Intake Visit Reasons: Remote ILR check- Medtronic Allergies No Known Allergies Allergy (Verified 04/21/25 15:51) [facility] Medical History Cognitive impairment Myocardial infarct Accelerated hypertension Left hemiparesis Pure hypercholesterolemia Acute CVA (cerebrovascular accident) Surgical History History of hernia repair History of kidney surgery Family History Mother Cancer Lung cancer Father Heart disease Social History Household Members: Spouse and Children Alcohol intake: never Patient Tobacco Use Status: Never used Tobacco service: Yes Current occupational status: unemployed Office Procedures Cardiac Device Check Cardiac Device Check Details: Date of service 04/15/2025; in the current monitoring period, there is no evidence of atrial fibrillation. 51777-Npltcu Cardiac Interrogation, subcut cardiac rhythm monitor Procedure code (CPT) selection complete Assessment & Plan Assessment & Plan (1) Implantable loop recorder present: Code(s): Z95.818 - Presence of other cardiac implants and grafts Category: Medical (2) Embolic stroke: Code(s): I63.9 - Cerebral infarction, unspecified Category: Medical Plan x Coding Level of Care Code Procedure Only Diagnoses Implantable loop recorder present Z95.818 Embolic stroke I63.9 CPT Codes Cardiac Device Check - Cardiac Device 16: 10970-Uvprsb Cardiac Interrogation, subcut cardiac rhythm monitor ([id number])
== END ==
PROVIDERS: PCP Internal Medicine; Visit Provider Internal Medicine
DX: I63.9 Cerebral infarction, unspecified (principal); Z95.818 Presence of other cardiac implants and grafts
CPT/HCPCS: 93298

== ENCOUNTER 2025-04-20 11:19 | Outpatient (REF) | payer OTHER, SELFPAY ==
--- OUTSIDE RECORDS SUMMARY | 2025-04-20 12:15 | XMS_ITS | Clinical Summary ---
Author Organization [facility] Address [address] [place] [address] Care Team Providers Care Medical Records Coder Name Role Phone Rush Martin MD Primary [...] 62 01/15/2024 11:19 AM EDT Temperature 36.6 C (97.8 F) 01/15/2024 11:19 AM EDT Respiratory Rate - - Oxygen [...] season) 2024 02/05/2021, 01/15/2021 Influenza Vaccine (#1) 2025 , 07/22/2020, 09/29/2016 Pneumococcal Vaccine Aged Out 09/29/2016 No long er eligible based on patient's age to complete this topic Hepatitis C Screening Completed 07/22/2020 RSV Ped < 20 months Aged Out No longe r eligible based on patient's age to complete this topic Care Teams Medical Records Coder Relationship Specialty Start Date End Date Rush Martin MD PCP - General Internal Medicine 12/24/23
[2025-04-20 15:00] LABS: Anion Gap 12 (12-20); Blood Urea Nitrogen 17 mg/dL (9-16); Carbon Dioxide 27 mmol/L (22-29); Chloride 101 mmol/L (96-108); Estimated Glomerular Filt Rate > 60; Potassium 3.7 mmol/L (3.3-5.1); Sodium 136 mmol/L (135-145)
[2025-04-20 15:51] LABS: Protein/Creatinine Ratio, Ur 0.05 (<0.2); Total Protein Urine Random 10 mg/dL (<12)
== END 2025-04-20 11:20 | disposition home or self-care (01) ==
LOC: HO.HKASLDS 11:19
PROVIDERS: Visit Provider Internal Medicine Nephrology
DX: I10 Essential (primary) hypertension (principal)
CPT/HCPCS: 36415; 80051; 82565; 82570; 84156; 84520

== ENCOUNTER 2025-04-21 15:36 | Outpatient (AMB) | payer OTHER, SELFPAY ==
[2025-04-21 15:49] VITALS: BP 120/82; PULSE 76; O2SAT 96; BMI 36.5
--- NOTE | 2025-04-21 15:49 | HO.NEPHOV ---
Vital Signs 04/21/25 15:49 Height 5 ft 9 in Weight 247 lb BMI 36.5 BP 120/82 Blood Pressure Location Lt brachial Position Sitting Pulse 76 Pulse Source Pulse Oximeter Pulse Oximetry (%) 96 Oxygen Delivery Method Room Air Intake Visit Reasons: Pts needed sooner appt due to work schedule Supervisor Pipe Joints Required: No Accompanied by: Spouse Allergies No Known Allergies Allergy (Verified 04/21/25 15:51) HPI Comments Details: Kunal was in follow up for accelerated hypertension. He has H/O left-sided hemiplegia due to subacute infarct in the right frontal lobe in September. Further imaging showed chronic lacunar infarcts bilaterally in the frontal lobe. He is not known to have diabetes. He had echocardiogram which showed normal ejection fraction. He had a bubble study which was negative. There was a question of him being lupus anticoagulant positive . He has seen Neurology and and was seen by Hematology. He has not seen any physicians for a long time prior to all these events. He recently had been feeling numbness on right side of face. He had MRI which showed new two strokes. He denies any history of sleep apnea, hypokalemia, hypercalcemia, uncontrolled thyroid disorders. He recently had seizure activity. He was accompanied by his during this office visit [facility] Medical History Cognitive impairment Myocardial infarct Accelerated hypertension Left hemiparesis Pure hypercholesterolemia Acute CVA (cerebrovascular accident) Surgical History History of hernia repair History of kidney surgery Family History Mother Cancer Lung cancer Father Heart disease Social History Household Members: Spouse and Children Alcohol intake: never Patient Tobacco Use Status: Never used Tobacco service: Yes Current occupational status: unemployed Review of Systems Const All systems reviewed & are unremarkable except as noted in HPI and below Physical Exam Vital Signs: Last Vital Signs Pulse 76 04/21/25 15:49 BP 120/82 04/21/25 15:49 Pulse Ox 96 04/21/25 15:49 Oxygen Delivery Method Room Air 04/21/25 15:49 BMI result Body Mass Index 36.5 Const General: comfortable and no acute distress Orientation/consciousness: patient oriented x3 HEENT Head: Yes normocephalic Mouth: Normal oral and palatal mucosa present Eyes EOM: EOMs intact bilaterally Neck Neck: Yes supple Resp Auscultation: clear to auscultation bilaterally Cardio Jugular venous distension: no JVD Rate: regular rate GI Palpation (GI): Soft to palpation Auscultation: normal bowel sounds General: Yes no CVA tenderness Back/Spine/Pelvis Back: no CVA tenderness Skin General skin exam: no rashes or lesions noted Neuro General: patient oriented x3 and moves all extremities Extrem General: Yes no pedal edema Results Reviewed Nephrology Results: Hgb, (14.0-18.0) 14.5 g/dl 03/13/25 WBC, (4.8-10.8) 9.2 X10*3/uL 03/13/25 Plt Count, (160-400) 391 X10*3/uL 03/13/25 Sodium, (135-145) 136 mmol/L 04/20/25 Potassium, (3.3-5.1) 3.7 mmol/L 04/20/25 Chloride, (96-108) 101 mmol/L 04/20/25 Carbon Dioxide, (22-29) 27 mmol/L 04/20/25 BUN, (9-16) 17 mg/dL H 04/20/25 Creatinine, (0.5-1.4) 1.16 mg/dL 04/20/25 Urine Creatinine 193.12 mg/dL 04/20/25 Protein/Creatinin Ratio, (<0.2) 0.05 04/20/25 Renal US 02/07/24 Assessment & Plan Assessment & Plan (1) Hypertension: Code(s): I10 - Essential (primary) hypertension Category: Medical Qualifiers: Hypertension type: primary hypertension Qualified Code(s): I10 - Essential (primary) hypertension Plan Kunal most likely had hypertension for a long time. He never had proper medical follow-up prior to all these events. He is on multiple antihypertensive medications . He needs to be on a low-sodium diet. Doppler of his renal arteries was done, given his recent vascular events. It did not show any renal artery stenosis He is not on lipid-lowering agents. He should continue lifestyle modification. His BP is well controlled on current medications. I did not make any medication changes. All his questions were answered. Follow-up appointment given. Orders: Orders Lipid Panel 6 Months I10 - Essential (primary) hypertension Electrolytes 6 Months I10 - Essential (primary) hypertension Blood Urea Nitrogen 6 Months I10 - Essential (primary) hypertension Creatinine 6 Months I10 - Essential (primary) hypertension Coding Level of Care Code Est Pt Level 4 (61126) Diagnoses Primary hypertension I10 Hypertension type: primary hypertension
--- OUTSIDE RECORDS SUMMARY | 2025-04-21 16:00 | XMS_ITS | Clinical Summary ---
Author Organization [facility] Address [address] [place] [address] Care Team Providers Care Manager Billing Name Role Phone Rush Martin MD Primary [...] age to complete this topic Care Teams Manager Billing Relationship Specialty Start Date End Date Rush Martin MD PCP - General Internal Medicine 12/24/23
== END 2025-04-21 16:25 | disposition home or self-care (01) ==
LOC: HO.HKAS 15:36
PROVIDERS: PCP Internal Medicine; Visit Provider Internal Medicine Nephrology
DX: I10 Essential (primary) hypertension (principal)
CPT/HCPCS: 99214

== ENCOUNTER → 2025-04-21 15:36 | Outpatient (BNVA) | payer OTHER, SELFPAY | PROVIDERS: PCP Internal Medicine; Visit Provider Internal Medicine Nephrology | DX: I10 Essential (primary) hypertension (principal) | CPT/HCPCS: 99212 ==

== ENCOUNTER → 2025-05-15 23:59 | Outpatient (BNV) | payer OTHER, SELFPAY ==
--- NOTE | 2025-05-24 13:55 | A.OFFVIS_ITS ---
Intake Visit Reasons: REmote ILR- Medtronic Allergies No Known Allergies Allergy (Verified 04/21/25 15:51) [facility] Medical History (Updated 05/18/25 @ 09:09 by Sanket Zamarripa MD) Anticardiolipin antibody positive Seizure disorder Multiple cerebral infarctions Cognitive impairment Myocardial infarct Accelerated hypertension Left hemiparesis Pure hypercholesterolemia Acute CVA (cerebrovascular accident) Surgical History History of hernia repair History of kidney surgery Family History Mother Cancer Lung cancer Father Heart disease Social History Household Members: Spouse and Children Alcohol intake: never Patient Tobacco Use Status: Never used Tobacco service: Yes Current occupational status: unemployed Office Procedures Cardiac Device Check Cardiac Device Check Details: Date of service 05/15/2025; in the current monitoring period, there is no evidence of atrial fibrillation. PVC burden 0.1%. 26331-Leztko Cardiac Interrogation, subcut cardiac rhythm monitor Procedure code (CPT) selection complete Assessment & Plan Assessment & Plan (1) Implantable loop recorder present: Code(s): Z95.818 - Presence of other cardiac implants and grafts Category: Medical (2) Embolic stroke: Code(s): I63.9 - Cerebral infarction, unspecified Category: Medical Plan x Coding Level of Care Code Procedure Only Diagnoses Implantable loop recorder present Z95.818 Embolic stroke I63.9 CPT Codes Cardiac Device Check - Cardiac Device 16: 17869-Uiommk Cardiac Interrogation, subcut cardiac rhythm monitor ([id number])
== END ==
PROVIDERS: PCP Internal Medicine; Visit Provider Internal Medicine
DX: I63.9 Cerebral infarction, unspecified (principal); Z95.818 Presence of other cardiac implants and grafts
CPT/HCPCS: 93298

== ENCOUNTER 2025-05-18 08:40 | Outpatient (AMB) | payer OTHER, SELFPAY ==
--- NOTE | 2025-05-18 08:55 | A.OFFVIS_ITS ---
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 He had an MRI at [place] [facility] that revealed acute infarction and he was admitted at [facility].His labs at [facility] in 2023 revealed AZEB of 320 and anticardiolipin antibody titer of 31.7. In Nov, he was at [facility] after a convulsion with loss of bowel control. He was feeling alright today except anxiety. He was getting disoriented and confused. Sometimes he had numbness and tingling on left side. [facility] Medical History (Updated 05/18/25 @ 09:09 by Sanket Zamarripa MD) Anticardiolipin antibody positive Seizure disorder Multiple cerebral infarctions Cognitive impairment Myocardial infarct Accelerated hypertension Left hemiparesis Pure hypercholesterolemia Acute CVA (cerebrovascular accident) Surgical History History of hernia repair History of kidney surgery Family History Mother Cancer Lung cancer Father Heart disease Social History Household Members: Spouse and Children Alcohol intake: never Patient Tobacco Use Status: Never used Tobacco service: Yes Current occupational status: unemployed Review of Systems Const Details: Constitutional:?No fever, chills, fatigue, weight loss, or night sweats. HEENT:?No headache, vision changes, hearing loss, nasal congestion, sore throat. Neurological:?No dizziness, syncope, seizures, numbness, tingling, weakness, tremors, memory loss. Psychiatric:?No anxiety, depression, mood swings, sleep disturbance, or hallucinations. Endocrine:?No heat/cold intolerance, polydipsia, polyuria, or hair/skin changes. Hematologic/Lymphatic:?No easy bruising, bleeding, or lymphadenopathy. Integumentary (Skin):?No rash, lesions, itching, or color changes. ? Physical Exam Neuro Other: Mental Status: Alert and oriented to person, place, and time. Normal attention. Normal spontaneous speech, fluency, and comprehension. No obvious issues with mood and memory. Affect is appropriate. Cranial Nerves: CN II: Visual lloyd full to confrontation, visual acuity intact. CN III, IV, : Pupils equal, round, reactive to light and accommodation. Extraocular movements are normal. CN V: Facial sensation is normal. CN VII: Facial movements symmetrical. CN VIII: Hearing intact to bedside conversation is normal. CN IX, X: Palate elevates symmetrically. CN XI: Shoulder shrug and head turn symmetrical. CN XII: Tongue midline without atrophy or fasciculations. Extrapyramidal: Full facial expressions and blinking. No rigidity. Movements are appropriate with no tremor or abnormality. Speech: Normal; no dysarthria or tremor. Assessment & Plan Assessment & Plan (1) Status post multiple cerebral infarctions: Code(s): Z86.73 - Personal history of transient ischemic attack (TIA), and cerebral infarction without residual deficits Category: Medical (2) Anticardiolipin antibody syndrome: Code(s): D68.61 - Antiphospholipid syndrome Category: Medical (3) Seizure disorder: Code(s): G40.909 - Epilepsy, unspecified, not intractable, without status epilepticus Category: Medical (4) Vascular dementia: Code(s): F01.50 - Vascular dementia, unspecified severity, without behavioral disturbance, psychotic disturbance, mood disturbance, and anxiety Category: Medical Qualifiers: Dementia severity: mild Dementia behavioral or psychological symptom: with other behavioral disturbance Qualified Code(s): F01.A18 - Vascular dementia, mild, with other behavioral disturbance Plan Impression: a: Anticardiolipin antibody syndrome b: Multiple cerebral infarctions including in right frontal lobe. This type of stroke may cause significant but subtle cognitive issues. c: Anxiety/depression related to stroke e: Vascular dementia Rec: a: Aspirin 81 mg daily + Clopidogrel 75mg daily b: Sertraline 50mg daily c: Education. I talked to his and him about common sense issues to avoid frustration and anxiety Medications: Changed From sertraline 25 mg PO DAILY To sertraline 50 mg (2 x 25 mg) PO DAILY 60 tabs 0RF Coding Level of Care Code Est Pt Level 4 (77663) Diagnoses Status post multiple cerebral infarctions Z86.73 Anticardiolipin antibody syndrome D68.61 Seizure disorder G40.909 Mild vascular dementia with other behavioral disturbance F01.A18 Dementia severity: mild Dementia behavioral or psychological symptom: with other behavioral disturbance
--- OUTSIDE RECORDS SUMMARY | 2025-05-18 09:02 | XMS_ITS | Clinical Summary ---
Author Organization [facility] Address [address] [place] [address] Care Team Providers Care Pickle Processor Name Role Phone Rush Martin MD Primary [...] age to complete this topic Care Teams Pickle Processor Relationship Specialty Start Date End Date Rush Martin MD PCP - General Internal Medicine 12/24/23
--- OUTSIDE RECORDS SUMMARY | 2025-05-18 09:02 | XMS_ITS | Encounter Summary ---
Author Organization [facility] Address [address] [place] [address] [place] [id number] Phone Care Team Providers Care Geotechnical Laboratory Technician Name Role Phone Issac Serrano MD Primary Care Provider [phone] Abdirahman Calloway MD Primary Care Provider + Issac Serrano MD Primary Care Provider [phone] Rush Martin MD Primary Care Provider [phone] Encounter Details Date Type Department Care Team (Late st Contact Info) Description 08/04/2020 Procedure Pass [facility] [address] [place] [address] Social History Tobacco Use Types Packs/Day Years Used Date Smoking Tobacco: Never Smokeless Tobacco: Never Alcohol Use Standard Drinks/Week Comments Not Currently 0 (1 standard drink = 0.6 oz pur e alcohol) Sex and Gender Information Value Date Recorded Sex Assigned at Male 07/22/2020 2:19 PM EDT Legal Sex Male 10:26 AM EDT Gender Identity Male 07/22/2020 2:19 PM EDT Sexual Orientation Straight 07/22/2020 2: 19 PM EDT documented as of this encounter Plan of Treatment Not on file documented as of this encounter Visit Diagnoses Not on filedocumented in this encounter Additional Health Concerns Infection Onset Date Last Indicated Resolved Time CoV-Risk 08/20/2020 08/27/2020 09/10/2020 1:23 AM EST CoV-Risk 12/10/2023 12/10/2023 12/21/2023 1:22 AM EST CoV-Risk 11/15/2024 11/15/2024 11/26/2024 1:22 AM EST Influenza A 11/15/2024 11/15/2024 11/22/2024 1:22 AM EST documented as of this encounter Care Teams Geotechnical Laboratory Technician Relationship Specialty Start Date End Date Issac Serrano MD [address] [place] [address] [email or web address] PCP - General Internal Medicine 07/13/20 11/11/20 Abdirahman Calloway MD [address] [place] [phone] PCP - General Family Medicine 11/12/20 11/17/20 Issac Serrano MD [address] [place] [address] [email or web address] PCP - General Internal Medicine 11/18/20 03/23/24 Rush Martin MD [address] [place] [id number] PCP - General Internal Medicine 03/24/24 documented as of this encounter Additional Source Comments The information contained in this document represents components of the legal health record. It is not the complete legal health record.[facility]
== END 2025-05-18 09:10 | disposition home or self-care (01) ==
LOC: HO.HSM 08:41
PROVIDERS: PCP Internal Medicine; Visit Provider Psychiatry & Neurology Neurology
DX: Z86.73 Personal history of transient ischemic attack (TIA), and cerebral infarction without residual deficits (principal); D68.61 Antiphospholipid syndrome; G40.909 Epilepsy, unspecified, not intractable, without status epilepticus; F01.A18 Vascular dementia, mild, with other behavioral disturbance
CPT/HCPCS: 99214

== ENCOUNTER → 2025-05-18 08:40 | Outpatient (BNVA) | payer OTHER, SELFPAY | PROVIDERS: PCP Internal Medicine; Visit Provider Psychiatry & Neurology Neurology | DX: D68.61 Antiphospholipid syndrome (principal); F01.A18 Vascular dementia, mild, with other behavioral disturbance; G40.909 Epilepsy, unspecified, not intractable, without status epilepticus; Z86.73 Personal history of transient ischemic attack (TIA), and cerebral infarction without residual deficits | CPT/HCPCS: 99212 ==

== ENCOUNTER 2025-06-02 07:43 | Inpatient (IN) | payer OTHER, SELFPAY ==
[2025-06-02] VITALS (8 sets, daily range): BP systolic 109–132; BP diastolic 62–83; PULSE 60–75; RESP 14–18; TEMP 36.4–36.8; O2SAT 95–98; BMI 35.8
--- NOTE | ~2025-06-02 | CT_ITS ---
EXAMINATION: CT HEAD WITHOUT CONTRAST (STROKE PROTOCOL) CLINICAL INFORMATION: Stroke protocol. Prior strokes. Left-sided weakness. COMPARISON: July 14, 2024 TECHNIQUE: Contiguous axial imaging was performed from the skull base to vertex without intravenous administration of contrast. This CT examination was performed using dose optimization techniques as appropriate, variously including the following: *Automated exposure control *Adjustment of mA and/or kV according to patient size (this includes techniques or standardized protocols for targeted exams where dose is matched to indication/reason for exam; i.e. extremities or head) *Use of iterative reconstruction technique DLP: 782 mGy centimeter. FINDINGS: No acute intracranial hemorrhage, mass effect, midline shift, hydrocephalus or herniation. Tadeo-white matter differentiation is normal. Multifocal old lacunar infarcts involving basal ganglia/thalami, frontal lord radiata white matter, bilaterally. Posterior cranial fossa contents demonstrated slight asymmetric effacement of the right side of the fourth ventricle/right Luschka foramina. The cerebellar tonsils are at the level of foramen magnum. Calcified plaques in the cavernous segments of the vertebral arteries. No air-fluid levels in the paranasal sinuses. Mucosal thickening, maxillary sinuses and ethmoid cells. Small retention cyst right abnormal air cells. Tympanic cavities and mastoid air cells are aerated. CT/CT angio head neck STROKE IMPRESSION: No acute intracranial hemorrhage. Multiple old lacunar infarcts, basal ganglia and extracapsular and frontal lord radiata white matter suggesting small vessel occlusive disease. Embolic , cardiogenic etiology of the prior infarcts cannot be excluded. Asymmetric fourth ventricle. Recommend dedicated MRI brain for further imaging evaluation. This critical result was discussed with physician syrup mixer assistant Miriam Rodarte at at 8:49 AM hours on June 02, 2025. It was ascertained that the content and urgency of the report was understood at the time of direct communication. EXAMINATION: CTA NECK WITH CONTRAST (STROKE) CTA BRAIN WITH CONTRAST (STROKE) CLINICAL INFORMATION: Suspect acute stroke. Assess for major vessel occlusion. Please call report. COMPARISON: July 14, 2024. TECHNIQUE: CTA of the head and neck was performed in the axial plane from the mediastinum to the skull vertex using 70 mL Omnipaque 350 intravenous contrast. Additional reformatted multiplanar images including maximum intensity projection MIP images are generated on the CT workstation. This CT examination was performed using dose optimization techniques as appropriate, variously including the following: *Automated exposure control *Adjustment of mA and/or kV according to patient size (this includes techniques or standardized protocols for targeted exams where dose is matched to indication/reason for exam; i.e. extremities or head) *Use of iterative reconstruction technique. DLP: 702 mGy centimeter. FINDINGS: The degree of stenosis determined by criteria similar to NASCET. Brain: Multifocal old lacunar infarcts, basal ganglia and extracapsular and lord radiata white matter frontal lobes. No acute intracranial hemorrhage, hydrocephalus, midline shift or herniation. Chest CTA: No aneurysm or dissection or focal stenosis, thoracic aortic arch. The origin of the left vertebral artery is directly from the aortic arch between the left CCA and the left subclavian artery. Neck CTA: Right CCA: Normal patency. No focal stenosis. No intimal flap. Right ICA: Normal patency. Small calcified plaque. No focal stenosis. No intimal flap. Retropharyngeal trajectory. Left CCA: Normal patency. No focal stenosis. No intimal flap. Left ICA: Normal patency. No focal stenosis. No calcified plaque. No intimal flap. Retropharyngeal trajectory. Tortuosity in the distal aspect. V1/V2 segments: Normal patency. No focal stenosis. Calcified plaque in the origin of the right vertebral artery. Right vertebral artery is dominant. No intimal flap. Brain CTA: Anterior cerebral circulation: ICAs: Calcified plaques in the cavernous supracavernous segments both ICAs. Normal patency. No focal stenosis. No abrupt cut off. MCA's: Normal patency. No focal stenosis. No abrupt cut off. Bifurcation/trifurcation demonstrated no vascular irregularity. MIGUEL: Normal patency. No focal stenosis. No abrupt cut off. Anterior communicating artery is present. Ophthalmic arteries are patent bilaterally. Right posterior communicating artery is patent. The left posterior communicating arteries no fully depicted. Posterior cerebral circulation: V3/V4 segments: Normal patency. No focal stenosis. No intimal flap. Posterior inferior cerebral arteries are patent. Anterior inferior cerebellar arteries are patent. There appears to be a common trunk between the anterior inferior cerebellar arteries and the posterior inferior cerebellar arteries. Basilar artery is patent without focal stenosis or intimal flap. Superior cerebellar arteries are patent. director global: Normal patency. No focal stenosis. No abrupt cut off. Ancillary findings: Main cerebral venous sinuses are patent without intraluminal filling defects. The thyroid gland demonstrates no dominant nodules. No gross abnormal enhancement within the intra-axial or the extra-axial compartment. IMPRESSION: No main cerebral artery occlusion or embolus. No dissection. No gross cerebral aneurysm. Atherosclerosis disease, cavernous supraclinoid segments both ICAs. This critical test result is communicated to: Physician syrup mixer assistant Miriam Rodarte in the emergency department at 8:49 AM on June 02, 2025. Electronically signed by: Chirag Dejesus MD 06/02/2025 09:11 AM EDT
--- NOTE | ~2025-06-02 | CT_ITS ---
EXAMINATION: CT HEAD WITHOUT CONTRAST (STROKE PROTOCOL) CLINICAL INFORMATION: Stroke protocol. Prior strokes. Left-sided weakness. COMPARISON: July 14, 2024 TECHNIQUE: Contiguous axial imaging was performed from the skull base to vertex without intravenous administration of contrast. This CT examination was performed using dose optimization techniques as appropriate, variously including the following: *Automated exposure control *Adjustment of mA and/or kV according to patient size (this includes techniques or standardized protocols for targeted exams where dose is matched to indication/reason for exam; i.e. extremities or head) *Use of iterative reconstruction technique DLP: 782 mGy centimeter. FINDINGS: No acute intracranial hemorrhage, mass effect, midline shift, hydrocephalus or herniation. Tadeo-white matter differentiation is normal. Multifocal old lacunar infarcts involving basal ganglia/thalami, frontal lord radiata white matter, bilaterally. Posterior cranial fossa contents demonstrated slight asymmetric effacement of the right side of the fourth ventricle/right Luschka foramina. The cerebellar tonsils are at the level of foramen magnum. Calcified plaques in the cavernous segments of the vertebral arteries. No air-fluid levels in the paranasal sinuses. Mucosal thickening, maxillary sinuses and ethmoid cells. Small retention cyst right abnormal air cells. Tympanic cavities and mastoid air cells are aerated. CT/CT head for STROKE IMPRESSION: No acute intracranial hemorrhage. Multiple old lacunar infarcts, basal ganglia and extracapsular and frontal lord radiata white matter suggesting small vessel occlusive disease. Embolic , cardiogenic etiology of the prior infarcts cannot be excluded. Asymmetric fourth ventricle. Recommend dedicated MRI brain for further imaging evaluation. This critical result was discussed with physician funeral home assistant Miriam Rodarte at at 8:49 AM hours on June 02, 2025. It was ascertained that the content and urgency of the report was understood at the time of direct communication. EXAMINATION: CTA NECK WITH CONTRAST (STROKE) CTA BRAIN WITH CONTRAST (STROKE) CLINICAL INFORMATION: Suspect acute stroke. Assess for major vessel occlusion. Please call report. COMPARISON: July 14, 2024. TECHNIQUE: CTA of the head and neck was performed in the axial plane from the mediastinum to the skull vertex using 70 mL Omnipaque 350 intravenous contrast. Additional reformatted multiplanar images including maximum intensity projection MIP images are generated on the CT workstation. This CT examination was performed using dose optimization techniques as appropriate, variously including the following: *Automated exposure control *Adjustment of mA and/or kV according to patient size (this includes techniques or standardized protocols for targeted exams where dose is matched to indication/reason for exam; i.e. extremities or head) *Use of iterative reconstruction technique. DLP: 702 mGy centimeter. FINDINGS: The degree of stenosis determined by criteria similar to NASCET. Brain: Multifocal old lacunar infarcts, basal ganglia and extracapsular and lord radiata white matter frontal lobes. No acute intracranial hemorrhage, hydrocephalus, midline shift or herniation. Chest CTA: No aneurysm or dissection or focal stenosis, thoracic aortic arch. The origin of the left vertebral artery is directly from the aortic arch between the left CCA and the left subclavian artery. Neck CTA: Right CCA: Normal patency. No focal stenosis. No intimal flap. Right ICA: Normal patency. Small calcified plaque. No focal stenosis. No intimal flap. Retropharyngeal trajectory. Left CCA: Normal patency. No focal stenosis. No intimal flap. Left ICA: Normal patency. No focal stenosis. No calcified plaque. No intimal flap. Retropharyngeal trajectory. Tortuosity in the distal aspect. V1/V2 segments: Normal patency. No focal stenosis. Calcified plaque in the origin of the right vertebral artery. Right vertebral artery is dominant. No intimal flap. Brain CTA: Anterior cerebral circulation: ICAs: Calcified plaques in the cavernous supracavernous segments both ICAs. Normal patency. No focal stenosis. No abrupt cut off. MCA's: Normal patency. No focal stenosis. No abrupt cut off. Bifurcation/trifurcation demonstrated no vascular irregularity. MIGUEL: Normal patency. No focal stenosis. No abrupt cut off. Anterior communicating artery is present. Ophthalmic arteries are patent bilaterally. Right posterior communicating artery is patent. The left posterior communicating arteries no fully depicted. Posterior cerebral circulation: V3/V4 segments: Normal patency. No focal stenosis. No intimal flap. Posterior inferior cerebral arteries are patent. Anterior inferior cerebellar arteries are patent. There appears to be a common trunk between the anterior inferior cerebellar arteries and the posterior inferior cerebellar arteries. Basilar artery is patent without focal stenosis or intimal flap. Superior cerebellar arteries are patent. selector packer: Normal patency. No focal stenosis. No abrupt cut off. Ancillary findings: Main cerebral venous sinuses are patent without intraluminal filling defects. The thyroid gland demonstrates no dominant nodules. No gross abnormal enhancement within the intra-axial or the extra-axial compartment. IMPRESSION: No main cerebral artery occlusion or embolus. No dissection. No gross cerebral aneurysm. Atherosclerosis disease, cavernous supraclinoid segments both ICAs. This critical test result is communicated to: Physician funeral home assistant Miriam Rodarte in the emergency department at 8:49 AM on June 02, 2025. Electronically signed by: Chirag Dejesus MD 06/02/2025 09:11 AM EDT
--- NOTE | ~2025-06-02 | MR_ITS ---
EXAMINATION: MR BRAIN WITHOUT AND WITH CONTRAST CLINICAL INFORMATION: Facial numbness. Prior strokes. COMPARISON: Correlated to CT and CT angiogram head dated June 02, 2025. TECHNIQUE: Multiplanar, multisequence MRI of the brain was obtained before and after the intravenous administration of 10.0 mL gadolinium based (Gadavist) without reported immediate complications.. FINDINGS: No restricted diffusion. Multifocal old lacunar infarcts, corpus striatum nuclei, thalami, external capsule, body corpus callosum, frontal lord radiata white matter. Bilateral, multifocal patchy deep periventricular white matter hyperintense T2 FLAIR signal involving centrum semiovale and lord radiata without restricted diffusion or abnormal enhancement. There is a patchy nonenhancing no restricted diffusion 5 mm hyperintense T2 signal in the left cerebellar white matter. Sellar/suprasellar region demonstrated CSF prominence of the suprasellar region without signal abnormality or enhancing. Susceptibility signal, ventral right thalamus and within the old lacunar infarcts right frontal lord radiata white matter Craniocervical junction demonstrates a borderline position of the cerebellar tonsils. Flow-void signal within the main cerebral vessels is normal. No signal abnormality or enhancing lesion within the optic nerves. No masses or enhancing lesion in the intraconal or extraconal compartments of the orbits. MR/MR head/brain wo/w con IMPRESSION: No acute stroke. No abnormal enhancement. Concerning for demyelinating plaques in the correct clinical settings. Old lacunar infarcts, basal ganglia. Sagittal 5 mm nonenhancing no restricted diffusion hyperintense T2 signal, left cerebellar white matter. Concerning for demyelination in the correct clinical settings. Old microhemorrhages likely hypertensive etiology. . Electronically signed by: Chirag Dejesus MD 06/03/2025 03:44 PM EDT
--- OUTSIDE RECORDS SUMMARY | 2025-06-02 08:03 | XMS_ITS | Encounter Summary ---
Author Organization [facility] Address [address] [place] [address] [place] [address] Phone Care Team Providers Care Engineering Mgr Name Role Phone Issac Serrano MD Primary Care Provider [phone] Abdirahman Calloway MD Primary Care Provider + Issac Serrano MD Primary Care Provider Rush Martin MD Primary Care Provider [phone] Encounter Details Date Type Department Care Team (Late st Contact Info) Description 08/04/2020 Procedure Pass [facility] [address] [place] [address] Social History Tobacco Use Types Packs/Day Years [...] documented as of this encounter Care Teams Engineering Mgr Relationship Specialty Start Date End Date Issac Serrano MD [address] [place] [address] [email or web address] PCP - General Internal Medicine 07/13/20 11/11/20 Abdirahman Calloway MD [address] [place] [id number] PCP - General Family Medicine 11/12/20 11/17/20 Issac Serrano MD [address] [place] [address] [email or web address] PCP - General Internal Medicine 11/18/20 03/23/24 Rush Martin MD [address] [place] [id number] PCP - General Internal Medicine 03/24/24 documented as of this encounter Additional Source Comments The information contained in this document represents components of the legal health record. It is not the complete legal health record.[facility]
--- OUTSIDE RECORDS SUMMARY | 2025-06-02 08:03 | XMS_ITS | Clinical Summary ---
Author Organization [facility] Address [address] [place] [address] Care Team Providers Care Portal Administrator Name Role Phone Rush Martin MD Primary [...] age to complete this topic Care Teams Portal Administrator Relationship Specialty Start Date End Date Rush Martin MD PCP - General Internal Medicine 12/24/23
--- NOTE | 2025-06-02 08:17 | ECG_ITS ---
Test Reason : stroke alert Blood Pressure : */* mmHG Vent. Rate : 69 BPM Atrial Rate : 69 BPM P-R Int : 138 ms QRS Dur : 94 ms QT Int : 396 ms P-R-T Axes : 11 -15 -8 degrees QTcB Int : 424 ms Normal sinus rhythm Incomplete right bundle branch block T wave abnormality, consider anterior ischemia Abnormal ECG When compared with ECG of 14-Jul-2024 16:52, T wave inversion now evident in Anterior leads Referred By: Miriam Rodarte Electronically Signed By: LUIGI CRESPO MD
--- NOTE | 2025-06-02 08:17 | ED.GENADULT ---
HPI - General Adult General Chief complaint: General Medical Stated complaint: L side facial pain/numbness Time Seen by Provider: 06/02/25 08:11 Source: patient and RN notes reviewed Mode of arrival: ambulatory Limitations: no limitations History of Present Illness ED Provider: Miriam Rodarte PA-C HPI narrative: This is a 59-year-old male, with a past medical history of hypertension, hyperlipidemia, CAD, obesity,?right MCA infarct on late September 2023, left cerebellar infarct, vascular dementia, who presents emergency department with concerns of left-sided facial weakness, numbness, and tingling which he noticed upon wakening this morning. Patient states that at 1:30 a.m. this morning his cat woke him up and he noticed numbness, tingling, and weakness to the left side of his face. He went back to bed, in his had reported some left-sided facial droop therefore patient was brought to the emergency room for further evaluation. Patient states that he has been in his usual state of health. He states that he also has had some left-sided neck pain, no injury or trauma. He denies any fevers, chills, chest pain, shortness for breath, abdominal pain, nausea, vomiting or diarrhea. He took all his medications this morning including aspirin. He denies any vision changes, weakness in his upper or lower extremities. MD complaint: Left-sided facial numbness, tingling Onset (ago): unknown Radiation: neck Associated symptoms: denies other symptoms Treatments prior to arrival: none Related Data Home Medications ?Medication ?Instructions ?Recorded ?Confirmed aspirin 81 mg tablet,delayed 81 mg PO DAILY 01/10/24 06/02/25 release clopidogrel 75 mg tablet 75 mg PO BEDTIME 09/17/24 06/02/25 levetiracetam 500 mg tablet 500 mg PO DAILY 03/13/25 06/02/25 atorvastatin 80 mg tablet (Lipitor) 80 mg PO BEDTIME 05/11/25 06/02/25 amlodipine 5 mg tablet 5 mg PO BEDTIME 06/02/25 06/02/25 Previous Rx's ?Medication ?Instructions ?Recorded chlorthalidone 25 mg tablet 25 mg PO DAILY 90 days #90 tabs 11/28/24 labetalol 200 mg tablet 400 mg (2 x 200 mg) PO BID 90 days 11/28/24 #360 tabs lisinopril 40 mg tablet 40 mg PO DAILY #90 tabs 11/28/24 sertraline 25 mg tablet 50 mg (2 x 25 mg) PO DAILY #60 tabs 05/18/25 Allergies Allergy/AdvReac Type Severity Reaction Status Date / Time No Known Allergies Allergy Verified 06/02/25 07:53 Review of Systems Review of Systems: Yes all other systems are reviewed and are negative Constitutional: Constitutional: Reports as per [facility] Past Medical History Attestation statement: The following information was validated with the patient. Medical History Anticardiolipin antibody positive Seizure disorder Multiple cerebral infarctions Cognitive impairment Myocardial infarct Accelerated hypertension Left hemiparesis Pure hypercholesterolemia Acute CVA (cerebrovascular accident) Surgical History History of hernia repair History of kidney surgery Family History Family History Mother Cancer Lung cancer Father Heart disease Social History Social History Household Members: Spouse and Children Alcohol intake: former Patient Tobacco Use Status: Never used Tobacco Smoked in Last 30 Days: No Use of substances other than those prescribed or required for medical reasons: No Advance Directives: Yes Advance Directives Information Provided: Yes Advance Directives on File: No Do you have a plan to hurt others: No Plan service: Yes Current occupational status: unemployed Physical Exam ED Vital Signs: Vital Signs - 24 hr 06/02/25 07:50 06/02/25 09:01 Temperature 97.6 F Pulse Rate 75 72 Respiratory Rate 18 14 Blood Pressure 132/80 110/62 Pulse Oximetry 98 95 Oxygen Delivery Method Room Air Room Air BMI result Body Mass Index 35.8 Const General: cooperative, comfortable and no acute distress Orientation/consciousness: patient oriented x3 Limitations: no limitations HENMT Head: Yes normal to inspection, Yes normocephalic and Yes atraumatic Ears: hearing grossly normal bilaterally General nose exam: Normal external nose present Face and sinus: Yes normal facial exam Mouth: Normal oral and palatal mucosa present, oropharynx normal and moist mucous membranes Throat: Yes posterior oropharynx normal Eyes General: appearance normal, both eyes and all related structures Eyelids: Yes eyelids normal Conjunctivae: conjunctivae normal Sclerae: sclerae normal Pupils: Equal, round and reactive pupils present EOM: EOMs intact bilaterally Neck Neck: Yes normal visual inspection, Yes full ROM and Yes no lymphadenopathy Lymphatic: no lymphadenopathy noted Chest Chest palpation & inspection: normal inspection of the chest Resp Effort & Inspection: normal respiratory effort and able to speak in complete sentences Auscultation: clear to auscultation bilaterally, no crackles, no rales, no rhonchi and no wheezes Cardio Rate: regular rate Rhythm: regular rhythm Heart sounds: S1 normal heart sound present and S2 normal heart sound present GI Inspection: Yes normal to inspection Skin General skin exam: no rashes or lesions noted Trauma: no lacerations or abrasions Wounds: no wounds Neuro Other: Mild left-sided facial droop, left eyebrow with mild difficulty raising-eyebrow. General: patient oriented x3 and moves all extremities Cranial nerves: Yes CN's II-XII intact bilaterally and Yes Equal, round and reactive pupils present Cognition (Neuro): normal cognition Gait exam (Neuro): Normal gait present Motor exam (neuro): 5/5 motor strength present throughout and Pronator motor function not present Coordination: [id number] test normal Romberg Test: Negative Pupils: Normal pupillary reactivity/response: bilateral Extrem General: Yes normal to inspection Right upper extremity: normal to inspection Left upper extremity: normal to inspection Right lower extremity: normal to inspection Left lower extremity: normal to inspection NIH Stroke Scale Internal: Initial- Upon Arrival Time: 08:19 Level of Consciousness: Alert Level of Consciousness Questions: Answers both questions correctly Level of Consciousness Commands: Performs both tasks correctly Best Gaze: Normal Visual: No visual loss Facial Palsy: Partial paralysis Motor Arm (Right): No drift Motor Arm (Left): No drift Motor Leg (Right): No drift Motor Leg (Left): No drift Limb Ataxia: Absent Sensory: Mild to moderate sensory loss Best Language: No aphasia Dysarthia: Normal Extinction and Inattention: No abnormality Score: 3 Medications Administered Generic Name Dose Route Start Last Admin Trade Name Freq PRN Reason Stop Dose Admin Enoxaparin Sodium 40 mg 06/02/25 12:30 06/02/25 13:56 Enoxaparin Sodium 40 Mg/0.4 Ml Syringe SUBCUT 40 mg Q24H CARLOS Administration Discontinued Medications Generic Name Dose Route Start Last Admin Trade Name Freq PRN Reason Stop Dose Admin Aspirin 325 mg 06/02/25 09:16 06/02/25 09:33 Aspirin 325 Mg Tablet PO 06/02/25 09:17 325 mg ONCE ONE Administration Iohexol 100 ml 06/02/25 08:47 06/02/25 08:48 Iohexol 350 Mg/Ml 100 Ml Infus..Btl IV 06/02/25 08:48 70 ml ONCE ONE Administration Medical Decision Making Medical Decision Making [facility] Narrative: This is a 59-year-old male who presents emergency department with concerns of left-sided facial numbness, tingling, and weakness. Patient has a history of multiple strokes in the past, states that he awoke at 1:30 a.m. as his cat jumped up bottom and he noticed that he had the symptoms. He is unclear when this started exactly. He states that last night he was feeling well, he does report that he has had some left-sided neck pain which is atypical of him which started over the last several days. He has been in his usual state of health. No fevers or chills. Discussed case with my attending, Dr. Carter. Patient is not a TNK candidate given last known well was at 1:30 a.m., or could be earlier as he was awoken by his cat this morning. Plan: 9:02 AM 06/02/2025 (Miriam Rodarte PA-C): Discussed case with the radiologist, reporting no acute stroke seen on dry CT or CTA. Patient is not a TNK candidate, he had symptoms starting at 1:30 a.m. this morning, however he awoke with this after being startled by his cat, unclear if this was happening previously. Given negative CT CTA, patient needs to be admitted for MR, and further workup given new onset left-sided facial droop and weakness. Discussed with my attending physician, Dr. Carter - patient already took 81 aspirin this morning, still ok to give full asa dose given symptoms. Relayed information to patient and at bedside. Discussed case with hospitalist, transfer of care initiated. Differential Diagnosis Differential Diagnoses: The differential diagnosis associated with the presentation includes CVA, atypical migraine, ICH, Hampton's palsy Admission/Observation Consideration of admission/observation: Escalation of care including admission/observation considered Consult Healthcare Provider Management of the patient was discussed with: Hospitalist Lab Data MDM Lab Attestation statement: I reviewed the patient's lab results. Patient with no leukocytosis, stable H&H, chemistry revealing no evidence of significant NELL, high cholesterol at 226, LDL 166, HDL 39. 06/02/25 08:29 06/02/25 08:29 Labs: Lab Results 06/02/25 06/02/25 Range/Units 08:29 08:43 WBC 7.6 (4.8-10.8) X10*3/uL RBC 4.73 (4.60-5.80) X10*6/uL Hgb 14.9 (14.0-18.0) g/dl Hct 42.5 (42.0-52.0) % MCV 89.9 (80.0-98.0) fL MCH 31.5 (27.0-33.0) pg MCHC 35.1 (31.0-36.0) g/dl RDW 12.9 (11.0-16.0) % Plt Count 318 (160-400) X10*3/uL MPV 9.5 (9.4-12.4) fL Immature Gran % (Auto) 1.3 H (0.0-0.4) % Neut % (Auto) 69.5 (45-73) % Lymph % (Auto) 15.4 L (20-40) % [place] % (Auto) 9.8 (2-11) % Eos % (Auto) 3.1 (0-4) % Baso % (Auto) 0.9 (0-2) % Lymph # (Auto) 1.2 (1.2-4.9) X10*3/uL [place] # (Auto) 0.8 (0.1-1.2) X10*3/uL Eos # (Auto) 0.2 (0.0-0.4) X10*3/uL Baso # (Auto) 0.1 (0.0-0.2) X10*3/uL Abs Immat Gran (auto) 0.10 H (0.00-0.03) X10*3/uL Absolute Neuts (auto) 5.3 (2.0-8.3) x10*3/uL Absolute Nucleated RBC 0.000 (0.0-0.012) X10*3/uL Nucleated RBC % (auto) 0.0 (0.0-0.2) /100WBC PT 11.6 (10.9-12.4) SEC Whole Blood PT 12.5 (11.1-13.5) sec INR 1.0 (0.9-1.1) Whole Blood INR 1.0 (0.9-1.1) APTT 30.2 (26.7-34.1) SEC Sodium 141 (135-145) mmol/L Potassium 3.6 (3.3-5.1) mmol/L Chloride 100 (96-108) mmol/L Carbon Dioxide 28 (22-29) mmol/L Anion Gap 17 (12-20) BUN 20 H (9-16) mg/dL Creatinine 1.23 (0.5-1.4) mg/dL Estim Creat Clear Calc 79.0 Estimated GFR > 60 POC Glucose 113 (60-115) mg/dL Random Glucose 125 H (60-115) mg/dL Calcium 9.4 (8.4-10.2) mg/dL Troponin I High Sens 18.4 (<3.5-35.0) ng/L Triglycerides 107 (<150) mg/dL Cholesterol 226 H (<200) mg/dL LDL Cholesterol, Calc 166 H (<100) mg/dL HDL Cholesterol 39 L (>40) mg/dL Independent Interpretation I performed an independent interpretation of an: EKG Interpretation: EKG normal sinus rhythm at a ventricular rate of 69 beats per minute, no STEMI. Radiology Impression Discussion of test interpretation with radiology: I have reviewed the radiologist's reading. Radiologist Impression: FINDINGS: The degree of stenosis determined by criteria similar to NASCET. Brain: Multifocal old lacunar infarcts, basal ganglia and extracapsular and lord radiata white matter frontal lobes. No acute intracranial hemorrhage, hydrocephalus, midline shift or herniation. Chest CTA: No aneurysm or dissection or focal stenosis, thoracic aortic arch. The origin of the left vertebral artery is directly from the aortic arch between the left CCA and the left subclavian artery. Neck CTA: Right CCA: Normal patency. No focal stenosis. No intimal flap. Right ICA: Normal patency. Small calcified plaque. No focal stenosis. No intimal flap. Retropharyngeal trajectory. Left CCA: Normal patency. No focal stenosis. No intimal flap. Left ICA: Normal patency. No focal stenosis. No calcified plaque. No intimal flap. Retropharyngeal trajectory. Tortuosity in the distal aspect. V1/V2 segments: Normal patency. No focal stenosis. Calcified plaque in the origin of the right vertebral artery. Right vertebral artery is dominant. No intimal flap. Brain CTA: Anterior cerebral circulation: ICAs: Calcified plaques in the cavernous supracavernous segments both ICAs. Normal patency. No focal stenosis. No abrupt cut off. MCA's: Normal patency. No focal stenosis. No abrupt cut off. Bifurcation/trifurcation demonstrated no vascular irregularity. MIGUEL: Normal patency. No focal stenosis. No abrupt cut off. Anterior communicating artery is present. Ophthalmic arteries are patent bilaterally. Right posterior communicating artery is patent. The left posterior communicating arteries no fully depicted. Posterior cerebral circulation: V3/V4 segments: Normal patency. No focal stenosis. No intimal flap. Posterior inferior cerebral arteries are patent. Anterior inferior cerebellar arteries are patent. There appears to be a common trunk between the anterior inferior cerebellar arteries and the posterior inferior cerebellar arteries. Basilar artery is patent without focal stenosis or intimal flap. Superior cerebellar arteries are patent. oyster cultivator: Normal patency. No focal stenosis. No abrupt cut off. Ancillary findings: Main cerebral venous sinuses are patent without intraluminal filling defects. The thyroid gland demonstrates no dominant nodules. No gross abnormal enhancement within the intra-axial or the extra-axial compartment. IMPRESSION: No main cerebral artery occlusion or embolus. No dissection. No gross cerebral aneurysm. Atherosclerosis disease, cavernous supraclinoid segments both ICAs. This critical test result is communicated to: Physician data assistant Miriam Rodarte in the emergency department at 8:49 AM on June 02, 2025. Electronically signed by: Chirag Dejesus MD 06/02/2025 09:11 AM EDT RP Dictated By: Chirag Leos MD Critical Care Time Critical Care Time Critical Care Time: Yes Total Critical Care Time: 60 Attestation: I have personally provided critical care time exclusive of time spent on separately billable procedures. Time includes review of lab data, radiology results, discussion with consultants, and monitoring for potential decompensation. Intervention performed as documented. Discharge Plan Discharge Clinical Impression: Facial droop Patient Disposition: Admitted As Inpatient Interventions: Admission Worksheet (ED) Last Done: 06/02/25 11:25
[2025-06-02 08:36] LABS: MANUAL DIFF FLAG NO
[2025-06-02 08:37] LABS: Hematocrit 42.5 % (42.0-52.0); Hemoglobin 14.9 g/dl (14.0-18.0); Imm Gran Abs Auto 0.10 X10*3/uL (0.00-0.03); Imm Gran Pct Auto 1.3 % (0.0-0.4); Lymphocytes Absolute Auto 1.2 X10*3/uL (1.2-4.9); Mean Corpuscular HGB Conc 35.1 g/dl (31.0-36.0); Mean Corpuscular Hemoglobin 31.5 pg (27.0-33.0); Mean Corpuscular Volume 89.9 fL (80.0-98.0); NRBC Abs Auto 0.000 X10*3/uL (0.0-0.012); NRBC Pct Auto 0.0 /100WBC (0.0-0.2); Platelet Count 318 X10*3/uL (160-400); Red Blood Count 4.73 X10*6/uL (4.60-5.80); White Blood Count 7.6 X10*3/uL (4.8-10.8)
[2025-06-02 08:48] LABS: Prothrombin Time Whole Bld POC 12.5 sec (11.1-13.5); ~PT, ~INR - Anti Coag Clinic 1.0 (0.9-1.1)
[2025-06-02] MEDS: iohexoL 350 MG/ML 100 ML INFUS..BTL IV (08:48)
[2025-06-02 08:49] LABS: Glucose, Whole Blood 113 mg/dL (60-115)
[2025-06-02 08:50] LABS: Anion Gap 17 (12-20); Blood Urea Nitrogen 20 mg/dL (9-16); Calcium 9.4 mg/dL (8.4-10.2); Carbon Dioxide 28 mmol/L (22-29); Chloride 100 mmol/L (96-108); Cholesterol 226 mg/dL (<200); Creatinine Clr Calc Pharmacy 79.0; Estimated Glomerular Filt Rate > 60; HDL Cholesterol 39 mg/dL (>40); Potassium 3.6 mmol/L (3.3-5.1); Sodium 141 mmol/L (135-145); Triglycerides 107 mg/dL (<150)
[2025-06-02 08:52] LABS: INTERNATIONAL NORM RATIO 1.0 (0.9-1.1); Prothrombin Time 11.6 SEC (10.9-12.4)
[2025-06-02 08:55] LABS: Partial Thromboplastin Time 30.2 SEC (26.7-34.1)
[2025-06-02 08:56] LABS: Stroke Lab Use COMPLETE
[2025-06-02 08:57] LABS: Troponin-I High Sensitivity 18.4 ng/L (<3.5-35.0)
--- NOTE | 2025-06-02 10:06 | PC.NURSE ---
Arrived from home accompanied by reporting left neck pain that started yesterday morning and woke up at 1am today with left sided facial weakness, numbness, and tingling. Denies new vision changes, dizziness, or chest pain. Reports decreased facial sensation on left side. Slight left sided facial drop. Provider at bedside to assess patient. 20g iv placed, patient brought to CT. Reports consant difficulties with swallowing but passed swallow eval , patient reporting no new changes to swallow.
--- NOTE | 2025-06-02 12:17 | PM.IMHP ---
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 He is here with complaint of neck area pain for about 2 days and early this morning around 130 he woke up with numbness on the left side of the face with soreness in the area of the neck around that area, unsure about any new weakness. Other than this no new neurological changes. A CT of the head and neck is unremarkable with no new changes. He has been admitted for further evaluation and rule out TIA / CVA Review of Systems Review of Systems: left sided facial numbness, some pain in left should PMFSH Medical History Anticardiolipin antibody positive Seizure disorder Multiple cerebral infarctions Cognitive impairment Myocardial infarct Accelerated hypertension Left hemiparesis Pure hypercholesterolemia Acute CVA (cerebrovascular accident) Family History Mother Cancer Lung cancer Father Heart disease Surgical History History of hernia repair History of kidney surgery Social History Household Members: Spouse and Children Alcohol intake: former Patient Tobacco Use Status: Never used Tobacco Smoked in Last 30 Days: No Use of substances other than those prescribed or required for medical reasons: No Advance Directives: Yes Advance Directives Information Provided: Yes Advance Directives on File: No Do you have a plan to hurt others: No Plan Nutrition Risks: No Nutritional Risk service: Yes Current occupational status: unemployed Meds Allergies Allergy/AdvReac Type Severity Reaction Status Date / Time No Known Allergies Allergy Verified 06/02/25 07:53 Active Medications: Current Medications Acetaminophen (Acetaminophen 325 Mg Tablet) 650 mg PO Q6H PRN PRN Reason: Pain, Mild 1-3,fever,headache Al Hydroxide/Mg Hydroxide (Magnesium Hydrox/Alum Hydrox 30 Ml Oral.Susp) 30 ml PO Q4H PRN PRN Reason: Heartburn Calcium Carbonate (Calcium Carbonate 750 Mg Tab.Chew) 750 mg PO Q4H PRN PRN Reason: Heartburn Magnesium Hydroxide (Milk Of Magnesia 30 Ml Oral.Susp) 30 ml PO DAILY PRN PRN Reason: Constipation Melatonin (Melatonin 3 Mg Tablet) 6 mg PO BEDTIME PRN PRN Reason: Insomnia Polyethylene Glycol (Polyethylene Glycol 3350 17 Gm Powd.Pack) 17 gm PO DAILY PRN PRN Reason: Constipation Home Medications ?Medication ?Instructions ?Recorded ?Confirmed ?Last Taken ?Type aspirin 81 mg tablet,delayed 81 mg PO DAILY 01/10/24 06/02/25 06/02/25 History release clopidogrel 75 mg tablet 75 mg PO BEDTIME 09/17/24 06/02/25 06/01/25 History levetiracetam 500 mg tablet 500 mg PO DAILY 03/13/25 06/02/25 06/02/25 History atorvastatin 80 mg tablet (Lipitor) 80 mg PO BEDTIME 05/11/25 06/02/25 06/01/25 History amlodipine 5 mg tablet 5 mg PO BEDTIME 06/02/25 06/02/25 06/01/25 History Physical Exam Vital Signs and Narrative: Vital Signs: Last Vital Signs Temp 97.6 F 06/02/25 07:50 Pulse 60 06/02/25 11:28 Resp 16 06/02/25 11:28 BP 109/72 06/02/25 11:28 Pulse Ox 96 06/02/25 11:28 O2 Del Method Room Air 06/02/25 11:28 BMI result Body Mass Index 35.8 Results Labs 06/02/25 08:29 06/02/25 08:29 Labs: Laboratory Results - last 24 hr 06/02/25 06/02/25 08:29 08:43 MCV 89.9 MCH 31.5 MCHC 35.1 RDW 12.9 Plt Count 318 MPV 9.5 Immature Gran % (Auto) 1.3 H Neut % (Auto) 69.5 Lymph % (Auto) 15.4 L [place] % (Auto) 9.8 Eos % (Auto) 3.1 Baso % (Auto) 0.9 Lymph # (Auto) 1.2 [place] # (Auto) 0.8 Eos # (Auto) 0.2 Baso # (Auto) 0.1 Abs Immat Gran (auto) 0.10 H Absolute Neuts (auto) 5.3 Absolute Nucleated RBC 0.000 Nucleated RBC % (auto) 0.0 PT 11.6 Whole Blood PT 12.5 INR 1.0 Whole Blood INR 1.0 APTT 30.2 Anion Gap 17 Estim Creat Clear Calc 79.0 Estimated GFR > 60 POC Glucose 113 Random Glucose 125 H Calcium 9.4 Triglycerides 107 Cholesterol 226 H LDL Cholesterol, Calc 166 H HDL Cholesterol 39 L Imaging Radiologist's Impressions: Impressions Head CT 06/02/25 07:23 IMPRESSION: No acute intracranial hemorrhage. Multiple old lacunar infarcts, basal ganglia and extracapsular and frontal lord radiata white matter suggesting small vessel occlusive disease. Embolic , cardiogenic etiology of the prior infarcts cannot be excluded. Asymmetric fourth ventricle. Recommend dedicated MRI brain for further imaging evaluation. This critical result was discussed with physician medical billing assistant Miriam Rodarte at at 8:49 AM hours on June 02, 2025. It was ascertained that the content and urgency of the report was understood at the time of direct communication. EXAMINATION: CTA NECK WITH CONTRAST (STROKE) CTA BRAIN WITH CONTRAST (STROKE) CLINICAL INFORMATION: Suspect acute stroke. Assess for major vessel occlusion. Please call report. COMPARISON: July 14, 2024. TECHNIQUE: CTA of the head and neck was performed in the axial plane from the mediastinum to the skull vertex using 70 mL Omnipaque 350 intravenous contrast. Additional reformatted multiplanar images including maximum intensity projection MIP images are generated on the CT workstation. This CT examination was performed using dose optimization techniques as appropriate, variously including the following: *Automated exposure control *Adjustment of mA and/or kV according to patient size (this includes techniques or standardized protocols for targeted exams where dose is matched to indication/reason for exam; i.e. extremities or head) *Use of iterative reconstruction technique. DLP: 702 mGy centimeter. FINDINGS: The degree of stenosis determined by criteria similar to NASCET. Brain: Multifocal old lacunar infarcts, basal ganglia and extracapsular and lord radiata white matter frontal lobes. No acute intracranial hemorrhage, hydrocephalus, midline shift or herniation. Chest CTA: No aneurysm or dissection or focal stenosis, thoracic aortic arch. The origin of the left vertebral artery is directly from the aortic arch between the left CCA and the left subclavian artery. Neck CTA: Right CCA: Normal patency. No focal stenosis. No intimal flap. Right ICA: Normal patency. Small calcified plaque. No focal stenosis. No intimal flap. Retropharyngeal trajectory. Left CCA: Normal patency. No focal stenosis. No intimal flap. Left ICA: Normal patency. No focal stenosis. No calcified plaque. No intimal flap. Retropharyngeal trajectory. Tortuosity in the distal aspect. V1/V2 segments: Normal patency. No focal stenosis. Calcified plaque in the origin of the right vertebral artery. Right vertebral artery is dominant. No intimal flap. Brain CTA: Anterior cerebral circulation: ICAs: Calcified plaques in the cavernous supracavernous segments both ICAs. Normal patency. No focal stenosis. No abrupt cut off. MCA's: Normal patency. No focal stenosis. No abrupt cut off. Bifurcation/trifurcation demonstrated no vascular irregularity. MIGUEL: Normal patency. No focal stenosis. No abrupt cut off. Anterior communicating artery is present. Ophthalmic arteries are patent bilaterally. Right posterior communicating artery is patent. The left posterior communicating arteries no fully depicted. Posterior cerebral circulation: V3/V4 segments: Normal patency. No focal stenosis. No intimal flap. Posterior inferior cerebral arteries are patent. Anterior inferior cerebellar arteries are patent. There appears to be a common trunk between the anterior inferior cerebellar arteries and the posterior inferior cerebellar arteries. Basilar artery is patent without focal stenosis or intimal flap. Superior cerebellar arteries are patent. cost controller: Normal patency. No focal stenosis. No abrupt cut off. Ancillary findings: Main cerebral venous sinuses are patent without intraluminal filling defects. The thyroid gland demonstrates no dominant nodules. No gross abnormal enhancement within the intra-axial or the extra-axial compartment. IMPRESSION: No main cerebral artery occlusion or embolus. No dissection. No gross cerebral aneurysm. Atherosclerosis disease, cavernous supraclinoid segments both ICAs. This critical test result is communicated to: Physician medical billing assistant Miriam Rodarte in the emergency department at 8:49 AM on June 02, 2025. Electronically signed by: Chirag Dejesus MD 06/02/2025 09:11 AM EDT Head/Neck CTA 06/02/25 07:28 IMPRESSION: No acute intracranial hemorrhage. Multiple old lacunar infarcts, basal ganglia and extracapsular and frontal lord radiata white matter suggesting small vessel occlusive disease. Embolic , cardiogenic etiology of the prior infarcts cannot be excluded. Asymmetric fourth ventricle. Recommend dedicated MRI brain for further imaging evaluation. This critical result was discussed with physician medical billing assistant Miriam Rodarte at at 8:49 AM hours on June 02, 2025. It was ascertained that the content and urgency of the report was understood at the time of direct communication. EXAMINATION: CTA NECK WITH CONTRAST (STROKE) CTA BRAIN WITH CONTRAST (STROKE) CLINICAL INFORMATION: Suspect acute stroke. Assess for major vessel occlusion. Please call report. COMPARISON: July 14, 2024. TECHNIQUE: CTA of the head and neck was performed in the axial plane from the mediastinum to the skull vertex using 70 mL Omnipaque 350 intravenous contrast. Additional reformatted multiplanar images including maximum intensity projection MIP images are generated on the CT workstation. This CT examination was performed using dose optimization techniques as appropriate, variously including the following: *Automated exposure control *Adjustment of mA and/or kV according to patient size (this includes techniques or standardized protocols for targeted exams where dose is matched to indication/reason for exam; i.e. extremities or head) *Use of iterative reconstruction technique. DLP: 702 mGy centimeter. FINDINGS: The degree of stenosis determined by criteria similar to NASCET. Brain: Multifocal old lacunar infarcts, basal ganglia and extracapsular and lord radiata white matter frontal lobes. No acute intracranial hemorrhage, hydrocephalus, midline shift or herniation. Chest CTA: No aneurysm or dissection or focal stenosis, thoracic aortic arch. The origin of the left vertebral artery is directly from the aortic arch between the left CCA and the left subclavian artery. Neck CTA: Right CCA: Normal patency. No focal stenosis. No intimal flap. Right ICA: Normal patency. Small calcified plaque. No focal stenosis. No intimal flap. Retropharyngeal trajectory. Left CCA: Normal patency. No focal stenosis. No intimal flap. Left ICA: Normal patency. No focal stenosis. No calcified plaque. No intimal flap. Retropharyngeal trajectory. Tortuosity in the distal aspect. V1/V2 segments: Normal patency. No focal stenosis. Calcified plaque in the origin of the right vertebral artery. Right vertebral artery is dominant. No intimal flap. Brain CTA: Anterior cerebral circulation: ICAs: Calcified plaques in the cavernous supracavernous segments both ICAs. Normal patency. No focal stenosis. No abrupt cut off. MCA's: Normal patency. No focal stenosis. No abrupt cut off. Bifurcation/trifurcation demonstrated no vascular irregularity. MIGUEL: Normal patency. No focal stenosis. No abrupt cut off. Anterior communicating artery is present. Ophthalmic arteries are patent bilaterally. Right posterior communicating artery is patent. The left posterior communicating arteries no fully depicted. Posterior cerebral circulation: V3/V4 segments: Normal patency. No focal stenosis. No intimal flap. Posterior inferior cerebral arteries are patent. Anterior inferior cerebellar arteries are patent. There appears to be a common trunk between the anterior inferior cerebellar arteries and the posterior inferior cerebellar arteries. Basilar artery is patent without focal stenosis or intimal flap. Superior cerebellar arteries are patent. cost controller: Normal patency. No focal stenosis. No abrupt cut off. Ancillary findings: Main cerebral venous sinuses are patent without intraluminal filling defects. The thyroid gland demonstrates no dominant nodules. No gross abnormal enhancement within the intra-axial or the extra-axial compartment. IMPRESSION: No main cerebral artery occlusion or embolus. No dissection. No gross cerebral aneurysm. Atherosclerosis disease, cavernous supraclinoid segments both ICAs. This critical test result is communicated to: Physician medical billing assistant Miriam Rodarte in the emergency department at 8:49 AM on June 02, 2025. 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 He is here with complaint of neck area pain for about 2 days and early this morning around 130 he woke up with numbness on the left side of the face with soreness in the area of the neck around that area, unsure about any new weakness. Other than this no new neurological changes. A CT of the head and neck is unremarkable with no new changes. He has been admitted for further evaluation and rule out TIA / CVA New numbness of left face, no evidence of acute stroke, rule out TIA Neuro consult MRI given extensive history and persitent symptoms Continue ASA, Plavix, statin HTN, resume home meds Mood disorder resume home meds after med rec ? Seizure d/o, continue Keppra Full code lovenox for DVT prophylaxis: No PT/OT given no new symptoms of weakness Quality Stroke Does the patient have a stroke diagnosis?: No VTE Prior VTE?: No VTE Risk Level:: Medical - moderate - high VTE Device Contraindication: Treatment Not Indicated VTE Drug Contraindication: N/A - Med Ordered
--- NOTE | 2025-06-02 14:27 | PHA.MEDREC ---
Addendum entered by Tracy Estrada RPh 06/02/25 15:01: MED REC REVIEWED BY [facility] Original Note: Pharmacy Consult ? Medication Reconciliation Pharmacy has completed the medication reconciliation. Spoke to patients at bedside to confirm med list. had a list of patients medication. Patient had all his morning medications.
--- NOTE | 2025-06-02 15:51 | MHC.STROKE ---
Met with patient and in room 1. Pt awake, alert and oriented x 4. continues to c/o mild numbness to left side of face along with neck pain. Otherwise, neuros intact. Pt does report that he has vascular dementia and is forgetful. at bedside. Stroke Education provided. Pamphlet given/reviewed. Risk factors discussed including medical hx, medications, social hx, activity/diet. All questions answered. Plan of care discussed with patient. Will continue to assist as needed.
--- NOTE | 2025-06-02 18:21 | PC.NURSE ---
/ patient reporting patient is feeling anxious because is going to be leaving to go home, message sent to provider
[2025-06-03] VITALS (11 sets, daily range): BP systolic 85–124; BP diastolic 52–74; PULSE 65–72; RESP 16–20; TEMP 36.3–37.3; O2SAT 94–96; BMI 36.2
[2025-06-03 05:19] LABS: Cholesterol 207 mg/dL (<200); HDL Cholesterol 33 mg/dL (>40); Triglycerides 126 mg/dL (<150)
[2025-06-03] MEDS: Aspirin Enteric Coated 81 MG TABLET.DR PO (09:16)
--- NOTE | 2025-06-03 09:22 | MHC.CM.PN ---
IMM 06/03/25, Pt lives with his , PCP confirmed: Rush Martin. HCP is at [facility], CM to call to obtain copy. Pt. does not have home health services, he uses a walking stick. to transport home at [place], DCP: home self care or with services. CM to follow for DC needs.
--- OUTSIDE RECORDS SUMMARY | 2025-06-03 09:27 | XMS_ITS | Encounter Summary ---
Author Organization [facility] Address [address] [place] [address] [place] [id number] Phone Care Team Providers Care Flavoring Oil Filterer Name Role Phone Issac Serrano MD Primary Care Provider [phone] Abdirahman Calloway MD Primary Care Provider + Issac Serrano MD Primary Care Provider [phone] Rush Martin MD Primary Care Provider [phone] Encounter Details Date Type Department Care Team (Late st Contact Info) Description 08/04/2020 Procedure Pass [facility] [address] [place] [address] Social History Tobacco Use Types Packs/Day Years [...] documented as of this encounter Care Teams Flavoring Oil Filterer Relationship Specialty Start Date End Date Issac Serrano MD [address] [place] [address] [email or web address] PCP - General Internal Medicine 07/13/20 11/11/20 Abdirahman Calloway MD [address] [place] [id number] PCP - General Family Medicine 11/12/20 11/17/20 Issac Serrano MD [address] [place] [id number] [email or web address] PCP - General Internal Medicine 11/18/20 03/23/24 Rush Martin MD [address] [place] [id number] PCP - General Internal Medicine 03/24/24 documented as of this encounter Additional Source Comments The information contained in this document represents components of the legal health record. It is not the complete legal health record.[facility]
--- OUTSIDE RECORDS SUMMARY | 2025-06-03 09:27 | XMS_ITS | Clinical Summary ---
Author Organization [facility] Address [address] [place] [address] Care Team Providers Care Park Activities Coordinator Name Role Phone Rush Martin MD Primary [...] age to complete this topic Care Teams Park Activities Coordinator Relationship Specialty Start Date End Date Rush Martin MD PCP - General Internal Medicine 12/24/23
--- NOTE | 2025-06-03 10:53 | P.CNNE_ITS ---
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 He had an MRI at [facility] that revealed acute infarction and he was admitted at [facility]. He also has a history of Cognitive impairment, accelerated hypertension, Left hemiparesis, Pure hypercholesterolemia, left cerebellar infarct and vascular dementia. He is here with complaint of neck area pain for about 2 days and early this morning around 130 he woke up with more numbness on the left side of the face with soreness in the area of the neck around that area, and more numbness in left hand . It has now returned to baseline. He also gets bilateral hand numbnessunsure about any new weakness Labs in 2023 revealed AZEB of 320 and anticardiolipin antibody titer of 31.7. In Nov, he was at [facility] after a convulsion with loss of bowel control. [facility] Past Medical History Medical History Anticardiolipin antibody positive Seizure disorder Multiple cerebral infarctions Cognitive impairment Myocardial infarct Accelerated hypertension Left hemiparesis Pure hypercholesterolemia Acute CVA (cerebrovascular accident) Family History Family History Mother Cancer Lung cancer Father Heart disease Surgical History Surgical History History of hernia repair History of kidney surgery Social History Social History Household Members: Spouse and Children Alcohol intake: former Patient Tobacco Use Status: Never used Tobacco Smoked in Last 30 Days: No Use of substances other than those prescribed or required for medical reasons: No Advance Directives: Yes Advance Directives Information Provided: Yes Advance Directives on File: No Do you have a plan to hurt others: No Plan Nutrition Risks: No Nutritional Risk service: Yes Current occupational status: unemployed Meds Allergies Allergy/AdvReac Type Severity Reaction Status Date / Time No Known Allergies Allergy Verified 06/02/25 07:53 Active Medications: Current Medications Acetaminophen (Acetaminophen 325 Mg Tablet) 650 mg PO Q6H PRN PRN Reason: Pain, Mild 1-3,fever,headache Al Hydroxide/Mg Hydroxide (Magnesium Hydrox/Alum Hydrox 30 Ml Oral.Susp) 30 ml PO Q4H PRN PRN Reason: Heartburn Amlodipine Besylate (Amlodipine Besylate 5 Mg Tablet) 5 mg PO BEDTIME [facility]; Protocol Last Admin: 06/02/25 22:34 Dose: 5 mg Aspirin (Aspirin Enteric Coated 81 Mg Tablet.Dr) 81 mg PO DAILY [facility] Last Admin: 06/03/25 09:16 Dose: 81 mg Atorvastatin Calcium (Atorvastatin Calcium 80 Mg Tablet) 80 mg PO BEDTIME [facility] Last Admin: 06/02/25 22:33 Dose: 80 mg Calcium Carbonate (Calcium Carbonate 750 Mg Tab.Chew) 750 mg PO Q4H PRN PRN Reason: Heartburn Clopidogrel Bisulfate (Clopidogrel Bisulfate 75 Mg Tablet) 75 mg PO BEDTIME [facility] Last Admin: 06/02/25 22:33 Dose: 75 mg Enoxaparin Sodium (Enoxaparin Sodium 40 Mg/0.4 Ml Syringe) 40 mg SUBCUT Q24H [facility] Last Admin: 06/02/25 13:56 Dose: 40 mg Hydrochlorothiazide (Hydrochlorothiazide 25 Mg Tablet) 25 mg PO DAILY [facility] Last Admin: 06/03/25 09:16 Dose: 25 mg Labetalol HCl (Labetalol Hcl 200 Mg Tablet) 400 mg PO BID [facility]; Protocol Last Admin: 06/03/25 10:17 Dose: 400 mg Levetiracetam (Levetiracetam 500 Mg Tablet) 500 mg PO DAILY [facility] Last Admin: 06/03/25 09:16 Dose: 500 mg Lisinopril (Lisinopril 40 Mg Tablet) 40 mg PO DAILY [facility]; Protocol Last Admin: 06/03/25 09:16 Dose: 40 mg Magnesium Hydroxide (Milk Of Magnesia 30 Ml Oral.Susp) 30 ml PO DAILY PRN PRN Reason: Constipation Melatonin (Melatonin 3 Mg Tablet) 6 mg PO BEDTIME PRN PRN Reason: Insomnia Polyethylene Glycol (Polyethylene Glycol 3350 17 Gm Powd.Pack) 17 gm PO DAILY PRN PRN Reason: Constipation Sertraline HCl (Sertraline Hcl 50 Mg Tablet) 50 mg PO DAILY [facility] Last Admin: 06/03/25 09:16 Dose: 50 mg Home Medications ?Medication ?Instructions ?Recorded ?Confirmed ?Last Taken ?Type aspirin 81 mg tablet,delayed 81 mg PO DAILY 01/10/24 0 06/02/25 06/02/25 History release clopidogrel 75 mg tablet 75 mg PO BEDTIME 09/17/2406/01/25 History levetiracetam 500 mg tablet 500 mg PO DAILY 03/13/25 0 06/02/25 06/02/25 History atorvastatin 80 mg tablet (Lipitor) 80 mg PO BEDTIME 0 05/11/25 06/02/25 06/01/25 History amlodipine 5 mg tablet 5 mg PO BEDTIME 06/02/2506/01/25 History Physical Exam 2 Vital Signs: Vital Signs: Last Vital Signs Temp 98.6 F 06/03/25 03:44 Pulse 69 06/03/25 10:17 Resp 20 06/03/25 08:08 BP 121/71 06/03/25 10:17 Pulse Ox 96 06/03/25 08:08 O2 Del Method Room Air 06/03/25 08:08 BMI result Body Mass Index 35.8 Neuro: Other: He has some decreased sensation on the left side of the mouth which appears to be his baseline and feels that the left dorsum of the hand is numb compared to the right which is also his baseline. There is no drift or weakness. His speech is normal and cranial nerves are normal. Reflexes symmetrical plantar responses flexor Results Labs 06/02/25 08:29 06/02/25 08:29 Assessment and Plan (1) Status post multiple cerebral infarctions: Status: Acute (2) Vascular dementia: Qualifiers: Dementia severity: mild Dementia behavioral or psychological symptom: w ith other behavioral disturbance Qualified Code(s): F01.A18 - Vascular dementia, mild, with other behavioral disturbance Status: Acute (3) Numbness and tingling of left side of face: Status: Acute Plan He seemed to have some increase in his baseline left-sided numbness which has now returned back to his baseline. It does not appear that he had another stroke. He has had multiple strokes in the past and in the past has been positive for anticardiolipin antibodies and an AZEB positive 320. He is currently on dual platelet therapy with aspirin and clopidogrel. His CTA is unremarkable. Recommendation: MRI of the brain to rule out extension of a previous stroke or a new stroke. Bilateral hand numbness min be unrelated and he can have outpatient nerve conduction studies for this. He should follow-up with Dr. Zamarripa after discharge. Procedures Date of Service Date of Service: 06/03/25
--- NOTE | 2025-06-03 10:53 | HO.PM.IMPN ---
Subjective Subjective Date of Service: 06/03/25 Interval History: f/u numbness on face symptoms resolved and no new ones Physical Exam Vital Signs: Vital Signs: Last Vital Signs Temp 98.6 F 06/03/25 03:44 Pulse 69 06/03/25 10:17 Resp 20 06/03/25 08:08 BP 121/71 06/03/25 10:17 Pulse Ox 96 06/03/25 08:08 O2 Del Method Room Air 06/03/25 08:08 BMI result Body Mass Index 35.8 Const: Other: General: AO X 3, no acute distress Resp: CTA bilateral CVS: S1,S2,RRR GI: +BS, NT, no distention Skin: No rash Neuro: motor grossly intact Psych: appropriate affect Objective Data Active Medications Acetaminophen (Acetaminophen 325 Mg Tablet) 650 mg PO Q6H PRN PRN Reason: Pain, Mild 1-3,fever,headache Al Hydroxide/Mg Hydroxide (Magnesium Hydrox/Alum Hydrox 30 Ml Oral.Susp) 30 ml PO Q4H PRN PRN Reason: Heartburn Amlodipine Besylate (Amlodipine Besylate 5 Mg Tablet) 5 mg PO BEDTIME [facility]; Protocol Last Admin: 06/02/25 22:34 Dose: 5 mg Documented By: GRACIELA Aspirin (Aspirin Enteric Coated 81 Mg Tablet.) 81 mg PO DAILY [facility] Last Admin: 06/03/25 09:16 Dose: 81 mg Documented By: GRACE Atorvastatin Calcium (Atorvastatin Calcium 80 Mg Tablet) 80 mg PO BEDTIME [facility] Last Admin: 06/02/25 22:33 Dose: 80 mg Documented By: GRACIELA Calcium Carbonate (Calcium Carbonate 750 Mg Tab.Chew) 750 mg PO Q4H PRN PRN Reason: Heartburn Clopidogrel Bisulfate (Clopidogrel Bisulfate 75 Mg Tablet) 75 mg PO BEDTIME [facility] Last Admin: 06/02/25 22:33 Dose: 75 mg Documented By: GRACIELA Enoxaparin Sodium (Enoxaparin Sodium 40 Mg/0.4 Ml Syringe) 40 mg SUBCUT Q24H [facility] Last Admin: 06/02/25 13:56 Dose: 40 mg Documented By: ENMANUEL Hydrochlorothiazide (Hydrochlorothiazide 25 Mg Tablet) 25 mg PO DAILY [facility] Last Admin: 06/03/25 09:16 Dose: 25 mg Documented By: GRACE Labetalol HCl (Labetalol Hcl 200 Mg Tablet) 400 mg PO BID [facility]; Protocol Last Admin: 06/03/25 10:17 Dose: 400 mg Documented By: GRACE Levetiracetam (Levetiracetam 500 Mg Tablet) 500 mg PO DAILY [facility] Last Admin: 06/03/25 09:16 Dose: 500 mg Documented By: GRACE Lisinopril (Lisinopril 40 Mg Tablet) 40 mg PO DAILY [facility]; Protocol Last Admin: 06/03/25 09:16 Dose: 40 mg Documented By: GRACE Magnesium Hydroxide (Milk Of Magnesia 30 Ml Oral.Susp) 30 ml PO DAILY PRN PRN Reason: Constipation Melatonin (Melatonin 3 Mg Tablet) 6 mg PO BEDTIME PRN PRN Reason: Insomnia Polyethylene Glycol (Polyethylene Glycol 3350 17 Gm Powd.Pack) 17 gm PO DAILY PRN PRN Reason: Constipation Sertraline HCl (Sertraline Hcl 50 Mg Tablet) 50 mg PO DAILY [facility] Last Admin: 06/03/25 09:16 Dose: 50 mg Documented By: GRACE Labs 06/02/25 08:29 06/02/25 08:29 Labs: Laboratory Results - last 24 hr 06/03/25 03:49 Triglycerides 126 Cholesterol 207 H LDL Cholesterol, Calc 149 H HDL Cholesterol 33 L Assessment and Plan (1) Numbness and tingling of left side of face: Status: Acute Plan 59 year old male with history of Cognitive impairment, Myocardial infarct, Accelerated hypertensio, Left hemiparesis, Pure hypercholesterolemia, history of right MCA infarct in 2022, left cerebellar infarct with chronic left sided weakness, vascular dimentia. He is here with complaint of neck area pain for about 2 days and early this morning around 130 he woke up with numbness on the left side of the face with soreness in the area of the neck around that area, unsure about any new weakness. Other than this no new neurological changes. A CT of the head and neck is unremarkable with no new changes. He has been admitted for further evaluation and rule out TIA / CVA New numbness of left face, no evidence of acute stroke, rule out TIA Neuro consult MRI given extensive history and persitent symptoms Continue ASA, Plavix, statin HTN, resume home meds Mood disorder resume home meds after med rec eizure d/o, continue Keppra Full code lovenox for DVT prophylaxis: No PT/OT given no new symptoms of weakness Quality Stroke Does the patient have a stroke diagnosis?: No VTE Prior VTE?: No VTE Risk Level:: Medical - moderate - high VTE Device Contraindication: Treatment Not Indicated VTE Drug Contraindication: N/A - Med Ordered
--- NOTE | 2025-06-03 10:56 | P.DS_ITS ---
DS: Providers Provider Date of Service: 06/03/25 Date of admission: 06/02/25 09:46 Date of discharge: 06/03/25 Primary care physician: Rush Martin MD Consults: 06/02/25 12:13 Consult to Neurology Routine Consulting Provider: Sanket Zamarripa Reason for consultation: Facial numness ? TIA Has provider been notified: No DS: Diagnosis Discharge Diagnosis (1) Numbness and tingling of left side of face: Status: Acute DS: Summary Hospital Course Hospital Course: 59 year old male with history of Cognitive impairment, Myocardial infarct, Accelerated hypertensio, Left hemiparesis, Pure hypercholesterolemia, history of right MCA infarct in 2022, left cerebellar infarct with chronic left sided weakness, vascular dimentia. He is here with complaint of neck area pain for about 2 days and early this morning around 130 he woke up with numbness on the left side of the face with soreness in the area of the neck around that area, unsure about any new weakness. Other than this no new neurological changes. A CT of the head and neck is unremarkable with no new changes. He has been admitted for further evaluation and rule out TIA / CVA New numbness of left face, no evidence of acute stroke, rule out TIA Neuro consult MRI given extensive history and persitent symptoms Continue ASA, Plavix, statin HTN, resume home meds Mood disorder resume home meds after med rec eizure d/o, continue Keppra Full code lovenox for DVT prophylaxis: No PT/OT given no new symptoms of weakness Time Attestation Discharge Coordination Time (in mins): 35 Quality: Safe Use of Opioids Does Pt have an Active Cancer Diagnosis on the Problem List?: No Quality: Stroke Does the patient have a stroke diagnosis?: No Physical Exam Vital Signs: Vital Signs: Last Vital Signs Temp 98.6 F 06/03/25 03:44 Pulse 69 06/03/25 10:17 Resp 20 06/03/25 08:08 BP 121/71 06/03/25 10:17 Pulse Ox 96 06/03/25 08:08 O2 Del Method Room Air 06/03/25 08:08 BMI result Body Mass Index 35.8 DS: Data Data Completed and Pending Labs on day of discharge: Laboratory Results - last 24 hr 06/03/25 03:49 Triglycerides 126 Cholesterol 207 H LDL Cholesterol, Calc 149 H HDL Cholesterol 33 L Discharge Plan Discharge Referrals: Rush Martin MD [Primary Care Provider, Internal Medicine] - 1 Week Discharge Medications: No Action lisinopril 40 mg tablet 40 mg PO DAILY Qty: 90 4RF labetalol 200 mg tablet 400 mg PO BID 90 Days Qty: 360 4RF chlorthalidone 25 mg tablet 25 mg PO DAILY 90 Days Qty: 90 3RF amlodipine 5 mg tablet 5 mg PO BEDTIME levetiracetam 500 mg Tablet 500 mg PO DAILY clopidogrel 75 mg tablet 75 mg PO BEDTIME aspirin 81 mg tablet,delayed release (DR/EC) 81 mg PO DAILY atorvastatin [Lipitor] 80 mg tablet 80 mg PO BEDTIME sertraline 25 mg tablet 50 mg PO DAILY Qty: 60 0RF Diet: Advance to usual diet Activity on Discharge: As tolerated Print Language: Luxembourgish
--- NOTE | 2025-06-03 12:10 | PC.NURSE ---
Pt's pressure dropped to 83/55, pt denies any change in symptoms (CP/SOB/dizziness/visual changes), MD aware, awaiting orders.
[2025-06-03] MEDS: Lactated Ringers 1,000 ML 150 ML IVCONT (12:23)
--- NOTE | 2025-06-03 14:32 | PC.NURSE ---
Pt taken to MRI via stretcher, IVF paused for imaging.
[2025-06-04] VITALS (8 sets, daily range): BP systolic 92–116; BP diastolic 57–77; PULSE 61–90; RESP 18; TEMP 36.1–36.7; O2SAT 94–96
[2025-06-04] MEDS: Aspirin Enteric Coated 81 MG TABLET.DR PO (08:29)
--- NOTE | 2025-06-04 14:59 | PM.DS ---
DS: Providers Provider Date of Service: 06/04/25 Date of admission: 06/02/25 09:46 Date of discharge: 06/04/25 Primary care physician: Rush Martin MD Consults: 06/02/25 12:13 Consult to Neurology Routine Consulting Provider: Sanket Zamarripa Reason for consultation: Facial numness ? 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 He is here with complaint of neck area pain for about 2 days and early this morning around 130 he woke up with numbness on the left side of the face with soreness in the area of the neck around that area, unsure about any new weakness. Other than this no new neurological changes. A CT of the head and neck is unremarkable with no new changes. He has been admitted for further evaluation and rule out TIA / CVA New numbness of left face, no evidence of acute stroke, rule out TIA cta negative (please see imaging section below for details) mri:No acute stroke.No abnormal enhancement.Concerning for demyelinating plaques in the correct clinical settings.Old lacunar infarcts, basal ganglia. Sagittal 5 mm nonenhancing no restricted diffusion hyperintense T2 signal, left cerebellar white matter. Concerning for demyelination in the correct clinical settings.Old microhemorrhages likely hypertensive etiology. 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 Continue recommended to continue ASA, Plavix, statin. Patient currently asymptomatic, near his baseline. htn : blood pressure boderline (during this admission)-hold chlorthalidione/lisinopril for 1 week at least and moniter blood pressure -if blood pressure stays persistently above 140/90 mmhg: Consider reintroducing these medications outpatient. In addition adjusted amlodipine to 2.5 mg qhs. follow up with pcp and neurology outpatient. Plan: Hold lisinopril/chlorthalidone. Amlodipine adjusted 2.5 q.h.s., continue labetalol, if blood pressure consistently above 140/90mmg -consider adding lisinopril/chlorthalidone. Further blood pressure management outpatient, monitor blood pressure closely. Follow up with PCP and Neurology outpatient dr Zamarripa's office. Above management discussed with the patient and his at bedside in detail length they both understand and in agreement with the above plan, time spent 45 minute, all question answered. Time Attestation Total time managing care of this patient today: 45 mintues. Discharge Coordination Time (in mins): 45 min Quality: Safe Use of Opioids Does Pt have an Active Cancer Diagnosis on the Problem List?: No Quality: Stroke Does the patient have a stroke diagnosis?: No Physical Exam Exam: Exam: General: AO X 3, no acute distress Resp: CTA bilateral CVS: S1,S2,RRR GI: +BS, NT, no distention Skin: No rash Neuro: motor grossly intact Psych: appropriate affect Vital Signs: Vital Signs: Last Vital Signs Temp 97.4 F 06/04/25 12:00 Pulse 90 06/04/25 13:40 Resp 18 06/04/25 12:00 BP 116/71 06/04/25 12:00 Pulse Ox 94 06/04/25 12:00 O2 Del Method Room Air 06/04/25 12:00 BMI result Body Mass Index 36.2 DS: Data Imaging Chest x-ray: Radiologist's impression: ITS Impressions Head CT 06/02/25 07:23 IMPRESSION: No acute intracranial hemorrhage. Multiple old lacunar infarcts, basal ganglia and extracapsular and frontal lord radiata white matter suggesting small vessel occlusive disease. Embolic , cardiogenic etiology of the prior infarcts cannot be excluded. Asymmetric fourth ventricle. Recommend dedicated MRI brain for further imaging evaluation. CTa: IMPRESSION: No main cerebral artery occlusion or embolus. No dissection. No gross cerebral aneurysm. Atherosclerosis disease, cavernous supraclinoid segments both ICAs. Brain MRI 06/03/25 14:35 IMPRESSION: No acute stroke. No abnormal enhancement. Concerning for demyelinating plaques in the correct clinical settings. Old lacunar infarcts, basal ganglia. Sagittal 5 mm nonenhancing no restricted diffusion hyperintense T2 signal, left cerebellar white matter. Concerning for demyelination in the correct clinical settings. Old microhemorrhages likely hypertensive etiology. . Discharge Plan Discharge Anticipated Discharge Date/Time: 06/04/25 14:53 Patient Disposition: Home Health Service Discharge Diagnosis: facial numbness Referrals: Maxwell CHACKO [Other] - 1 Week Rush Martin MD [Primary Care Provider, Internal Medicine] - 1 Week Discharge Medications: Continued labetalol 200 mg tablet 400 mg PO BID 90 Days Qty: 360 4RF levetiracetam 500 mg Tablet 500 mg PO DAILY clopidogrel 75 mg tablet 75 mg PO BEDTIME aspirin 81 mg tablet,delayed release (DR/EC) 81 mg PO DAILY atorvastatin [Lipitor] 80 mg tablet 80 mg PO BEDTIME sertraline 25 mg tablet 50 mg PO DAILY Qty: 60 0RF Changed amlodipine 5 mg tablet 2.5 mg PO BEDTIME Qty: 30 0RF Held lisinopril 40 mg tablet 40 mg PO DAILY Qty: 90 4RF Hold Instructions: Resume on 06/10/25. chlorthalidone 25 mg tablet 25 mg PO DAILY 90 Days Qty: 90 3RF Hold Instructions: Resume on 06/16/25. Discharge Orders: Discharge Order (Routine); Ordered 06/04/25 Ordered By: Antoine Vera Diet: Advance to usual diet Activity on Discharge: As tolerated Stand Alone Forms: Patient Portal Discharge page Print Language: Lithuanian Care Plan Goals: recovery from transient facial numbness, concern for stroke. htn : blood pressure boderline (during this admission)-hold chlorthalidione/lisinopril for 1 week at least and moniter blood pressure -if blood pressure stays persistently above 140/90 mmhg: Consider reintroducing these medications outpatient. In addition adjusted amlodipine to 2.5 mg qhs. follow up with pcp and neurology outpatient. Health Concerns: facial numbmess, history of stroke Plan of Treatment: continue taking all your medications as before Assessment: See above
--- NOTE | 2025-06-04 15:03 | W.MHC.F2F ---
Service Date Service Date: 06/04/25 Encounter Date of encounter: 06/04/25 Encounter: facial numbness, hypotension Reasons for Services Signs and symptoms assessed: Any new neurological symptoms, fluctuation of blood pressure. Reason for assisted: CV/CP assess and/or care, neurological assessment, medication management, medication treatment and teach disease management Reason for physical therapy: home safety and mobility, therapeutic exercises, restore joint function, gait/transfer training, assess need for DME, ADL training, energy conservation and other Reason for occupational therapy: home safety and mobility, therapeutic exercises, restore joint function, gait/transfer training, assess need for DME, ADL training, energy conservation and other MD Overseeing Care: Rush Martin Homebound: Leaving the home is medically contraindicated at this time without the asist of a device and/or another person due th the listed conditions above and below. Reason homebound: weakness related to hospital stay Homebound supporting statement: Patient is generalised weak post hospitlisation and need help with going to appointments and labs draws and blood pressure monitering and medication management, pt/ot. Certification: Based on the above findings, I certify that this patient is confined to the home and needs intermittent assisted care, physical therapy and/or speech therapy, or continues to need occupational therapy. The patient is under my care, and I have initiated the establishment of the plan of care. The patient will be followed by a physician who will periodically review the plan of care. Time Spent With Patient Time: Total time managing care of this patient today ____ minutes.
--- NOTE | 2025-06-04 15:49 | MHC.CM.PN ---
Pt is medically cleared for discharge home with [facility] services, pts to transport him home today.
== END 2025-06-04 16:54 | disposition home health service (06) | DRG 58 ==
LOC: HO.ED 08:54 → HO.EDOVER 11:25 → HO.IMC 06-03 13:43
PROVIDERS: Physician Assistant Medical; Admitting Provider Internal Medicine; Emergency Provider Emergency Medicine; PCP Internal Medicine; Visit Provider Internal Medicine
DX: R20.0 Anesthesia of skin (principal); F01.50 Vascular dementia, unspecified severity, without behavioral disturbance, psychotic disturbance, mood disturbance, and anxiety; I69.354 Hemiplegia and hemiparesis following cerebral infarction affecting left non-dominant side; I10 Essential (primary) hypertension; G40.909 Epilepsy, unspecified, not intractable, without status epilepticus; I25.10 Atherosclerotic heart disease of native coronary artery without angina pectoris; Z79.02 Long term (current) use of antithrombotics/antiplatelets; I69.319 Unspecified symptoms and signs involving cognitive functions following cerebral infarction; Z79.82 Long term (current) use of aspirin; Z79.899 Other long term (current) drug therapy
CPT/HCPCS: 36415; 70450; 70496; 70498; 70553; 80048; 80061; 82947; 84484; 85025; 85610; 85730; 93005; 97161; 99285; A9585; J1650; J7120; Q9967

== ENCOUNTER → 2025-06-02 08:17 | Outpatient (BNV) | payer OTHER, SELFPAY | PROVIDERS: Admitting Provider Internal Medicine; Emergency Provider Emergency Medicine; PCP Internal Medicine; Visit Provider Internal Medicine Cardiovascular Disease | DX: I45.10 Unspecified right bundle-branch block (principal) | CPT/HCPCS: 93010 ==

== ENCOUNTER → 2025-06-02 08:17 | Outpatient (BNV) | payer OTHER, SELFPAY | PROVIDERS: Emergency Provider Emergency Medicine; PCP Internal Medicine; Visit Provider Radiology Diagnostic Radiology | DX: R53.1 Weakness (principal); R20.2 Paresthesia of skin; Z86.73 Personal history of transient ischemic attack (TIA), and cerebral infarction without residual deficits | CPT/HCPCS: 70450; 70496; 70498 ==

== ENCOUNTER 2025-06-02 09:46 | Outpatient (BNV) | payer OTHER, SELFPAY | END 2025-06-03 14:35 | PROVIDERS: Admitting Provider Internal Medicine; Emergency Provider Emergency Medicine; PCP Internal Medicine; Visit Provider Radiology Diagnostic Radiology | DX: R20.2 Paresthesia of skin (principal) | CPT/HCPCS: 70553 ==

== ENCOUNTER → 2025-06-02 09:46 | Outpatient (BNV) | payer OTHER, SELFPAY | PROVIDERS: Admitting Provider Internal Medicine; Emergency Provider Emergency Medicine; PCP Internal Medicine; Visit Provider Psychiatry & Neurology Neurology | DX: Z86.73 Personal history of transient ischemic attack (TIA), and cerebral infarction without residual deficits (principal); F01.A18 Vascular dementia, mild, with other behavioral disturbance; R20.0 Anesthesia of skin; R20.2 Paresthesia of skin | CPT/HCPCS: 99222 ==

== ENCOUNTER → 2025-06-02 09:46 | Outpatient (BNV) | payer OTHER, SELFPAY | PROVIDERS: Admitting Provider Internal Medicine; Emergency Provider Emergency Medicine; PCP Internal Medicine; Visit Provider Internal Medicine | DX: R20.0 Anesthesia of skin (principal); R20.2 Paresthesia of skin | CPT/HCPCS: 99232; 99239; G0180 ==

== ENCOUNTER → 2025-06-14 23:59 | Outpatient (BNV) | payer OTHER, SELFPAY ==
--- NOTE | 2025-07-01 20:21 | MHC.OFFVIS ---
Intake Visit Reasons: Remote ILR check - [employer] Allergies No Known Allergies Allergy (Verified 06/17/25 11:37) PFS Medical History Anticardiolipin antibody positive Seizure disorder Multiple cerebral infarctions Cognitive impairment Myocardial infarct Accelerated hypertension Left hemiparesis Pure hypercholesterolemia Acute CVA (cerebrovascular accident) Surgical History History of hernia repair History of kidney surgery Family History Mother Cancer Lung cancer Father Heart disease Social History Household Members: Spouse and Children Alcohol intake: former Patient Tobacco Use Status: Never used Tobacco Advance Directives Date on File: 06/03/25 service: Yes Current occupational status: unemployed Office Procedures Cardiac Device Check Cardiac Device Check Details: Date of service 06/14/2025; in the current monitoring period, there is no evidence of atrial fibrillation. [id number] Cardiac Interrogation, subcut cardiac rhythm monitor Procedure code (CPT) selection complete Assessment & Plan Assessment & Plan (1) Implantable loop recorder present: Code(s): Z95.818 - Presence of other cardiac implants and grafts Category: Medical (2) Embolic stroke: Code(s): I63.9 - Cerebral infarction, unspecified Category: Medical Plan x Medications: Resumed lisinopril 40 mg PO DAILY 90 tabs 4RF chlorthalidone 25 mg PO DAILY 90 days 90 tabs 3RF Coding Level of Care Code Procedure Only Diagnoses Implantable loop recorder present Z95.818 Embolic stroke I63.9 CPT Codes Cardiac Device Check - Cardiac Device 16: [id number] Cardiac Interrogation, subcut cardiac rhythm monitor ([id number])
== END ==
PROVIDERS: PCP Internal Medicine; Visit Provider Internal Medicine
DX: I63.9 Cerebral infarction, unspecified (principal); Z95.818 Presence of other cardiac implants and grafts
CPT/HCPCS: 93298

== ENCOUNTER 2025-06-17 11:08 | Outpatient (AMB) | payer OTHER, SELFPAY ==
--- OUTSIDE RECORDS SUMMARY | 2025-06-12 11:00 | XMS_ITS | Encounter Summary ---
Author Organization [facility] Address [address] [facility] [address] [place] [address] Phone Care Team Providers Care Track Repairer Name Role Phone Rush Martin MD Primary Care Provider [phone] Reason for Visit * Auth/Cert (Routine) Specialty Diagnoses / Procedures Referred By Paola t Referred To Contact Referral ID Status Reason Start Date Expiration Date Visits Re quested Visits Authorized [id number] 1 1 Encounter Details Date Type Department Care Team (Late st Contact Info) Description 06/12/2025 11:00 AM EDT Home Care Visit [facility] [address] [place] [phone] Ros Marin, OT [address] [place] [address] [email or web address] OT EVALUATION Social History Tobacco Use Types Packs/Day Years Used Date Smoking Tobacco: Never Smokeless Tobacco: Never Alcohol Use Standard Drinks/Week Comments Not Currently 0 (1 standard drink = 0.6 oz pur e alcohol) Home Health Assessment: Transportation Answer Date Recorded Lack of Transportation (Medical) No 06/10/2025 Lack of Transportation (Non-Medical) No 06/10/2025 Patient Unable or Declines to Respond No 06/10/2025 Education Answer Date Recorded Are you interested in more education? Not on micaela e 02/09/2023 Are you concerned about learning? Not on file 02/09/2023 No 02/09/2023 No 02/09/2023 Digital Access Answer Date Recorded No 03/13/2023 No 03/13/2023 Reliable internet access at home? Not on file 03/13/2023 Device with a working camera? Not on file Intimate Partner Violence Answer Date R ecorded Are you denied basic needs s uch as food, clothing, or medical care? No 11/15/2024 In the past 12 months have y ou been in a relationship with a person who hurts, threatens, or tries to control you? No 11/15/2024 Are you denied basic needs s uch as food, clothing, or medical care? No 11/15/2024 In the past 12 months have y ou been in a relationship with a person who hurts, threatens, or tries to control you? No 11/15/2024 Sex and Gender Information Value Date Recorded Sex Assigned at Male 07/22/2020 2:19 PM EDT Legal Sex Male 10:26 AM EDT Gender Identity Male 07/22/2020 2:19 PM EDT Sexual Orientation Straight 07/22/2020 2: 19 PM EDT documented as of this encounter Last Filed Vital Signs Vital Sign Reading Time Taken Comments Blood Pressure 118/80 06/12/2025 11:39 AM EDT Pulse 65 06/12/2025 11:36 AM EDT Temperature 36.3 C (97.3 F) 06/12/2025 11:36 AM EDT Respiratory Rate - - Oxygen Saturation 99% 06/12/2025 11:36 AM EDT Inhaled Oxygen Concentration - - Weight - - Height - - Body Mass Index - - documented in this encounter Plan of Treatment Upcoming Encounters Date Type Department Care Team (Late st Contact Info) Description 06/17/2025 2:00 PM EDT Home Care Visit [facility] [address] [place] [address] Ros Marin, OT [address] [place] [address] OT HOME VISIT 06/17/2025 3:00 PM EDT Home Care Visit [facility] [address] [place] [phone] Essie Joshi, RN [address] [place] [address] 06/18/2025 11:30 AM EDT Home Care Visit [facility] [address] [place] [phone] Claire Angela, PT [address] [place] [address] 06/19/2025 Home Care Visit [facility] [address] [place] [phone] Essie Joshi RN [address] [place] [address] 06/19/2025 2:00 PM EDT Home Care Visit [facility] [address] [place] [phone] Ros Marin, OT [address] [place] [address] 06/22/2025 1:45 AM EDT Home Care Visit [facility] [address] [place] [phone] Ros Marin, OT [address] [place] [address] 06/23/2025 Home Care Visit [facility] [address] [place] [phone] Essie Joshi RN [address] [place] [address] 06/24/2025 1:30 AM EDT Home Care Visit [facility] [address] [place] [phone] Ros Marin, OT [address] [place] [address] 06/25/2025 Home Care Visit [facility] [address] [place] [phone] Essie Joshi RN [address] [place] [address] 06/29/2025 12:45 AM EDT Home Care Visit [facility] [address] [place] [phone] Ros Marin, OT [address] [place] [address] 06/30/2025 Home Care Visit [facility] [address] [place] [phone] Essie Joshi RN [address] [place] [phone] 07/01/2025 12:45 AM EDT Home Care Visit [facility] [address] [place] [phone] Ros Marin, OT [address] [place] [address] 07/06/2025 Home Care Visit [facility] [address] [place] [phone] Ros Marin, OT [address] [place] [address] 07/07/2025 1:00 AM EDT Home Care Visit [facility] [address] [place] [phone] Essie Joshi RN [address] [place] [address] 07/08/2025 Home Care Visit [facility] [address] [place] [phone] Ros Marin, OT [address] [place] [address] 07/14/2025 1:00 AM EDT [facility] [address] [place] [phone] Essie Joshi RN [address] [place] [phone] 07/21/2025 1:00 AM EDT Home Care [facility] [address] [place] [address] Essie Joshi RN [address] [place] [phone] 07/28/2025 12:30 AM EDT Home Care Visit [facility] [address] [place] [address] Essie Joshi RN [address] [place] [phone] 08/04/2025 Appointment [facility] [address] [place] [phone] Essie Joshi RN [address] [place] [phone] documented as of this encounter Visit Diagnoses Not on filedocumented in this encounter Home Health Visit - Care Plan Visit Details Visit Type -OT EVALUATION Discipline -Occupational Therapy Problems Problem Description Start Date Status Goals Interve ntions HH - Medication Management Disciplines: All Active Home Health Disciplines 06/10/2025 Active 1 goal linked to scheduled/document ed intervention 2 goal interventions scheduled/document ed in this visit HH - Focus of Care and Teaching Disciplines: All Active Home Health Disciplines w/RD 06/10/2025 Active 1 goal linked to scheduled/document ed intervention 1 goal intervention scheduled/document ed in this visit HH - Emergency Planning - Knowledge of Disciplines: All Active Home Health Disciplines 06/10/2025 Active 1 goal linked to scheduled/document ed intervention 2 goal interventions scheduled/document ed in this visit HH - Standard of Care Disciplines: All Active Home Health Disciplines 06/10/2025 Active 1 goal linked to scheduled/document ed intervention 2 goal interventions scheduled/document ed in this visit Goals Goal Associated Problem Outcome Goal Met? Visit Notes HH - Safe medication management, avoid unnecessary harm related to medication errors and/or interactions HH - Medication Management No HH - Communication and collaboration to achieve patient goals HH - Focus of Care and Teaching No HH - Knowledge of options for managing care in the event of an emergency related situation. HH - Emergency Planning - Knowledge of No HH - Achieve care management for a safe to home/community discharge from homecare HH - Standard of Care No Interventions Intervention Associated Problem/Goal Status Variance Visit Notes HH - I/E medication management: administration, purpose, dosages, preparation, setup, scheduling, side effects, food/drug interactions, and potential complications as indicated Description: Update patient's copy of medication list as needed. Problem:HH - Medication Management Goal:HH - Safe medication management, avoid unnecessary harm related to medication errors and/or interactions Completed HH - Complete medication review every visit and medication reconciliation as indicated. Pharmacy information: [facility] Problem:HH - Medication Management Goal:HH - Safe medication management, avoid unnecessary harm related to medication errors and/or interactions Completed HH - Focus of care, teaching completed and plan for next visit Problem:HH - Focus of Care and Teaching Goal:HH - Communication and collaboration to achieve patient goals Completed Primary Clinical Focus this Visit & Instruction Provided: Pt is a 59 yo male referred for home care services s/p multiple cerebral infarctions, vascular dementia, numbness/tingling left side of face, hypotension. PMH cognitive impairment, [place], accelerated HTN, left hemiparesis/weakness, Seizures., anticardiolipin antibody syndrome, embolic stroke, syncope. Patient lives with spouse in apt building with elevator access, handicapped access for entrance. Apt small, patient not using AD indoors due to furniture/no room. Patient has also declined use of an AD outside like rollator for longer distances/being able to sit as patient and spouse reporting he used to walk uptown but fatigues easily. Spuose drives up to building to get him vs patient walking to parking lot. Patient and spouse reporting patient has been doing his own dressing, has been having Spv with showers due to stepping into tub - no GB in tub. OT to contact [facility] re tub bench. No GB next to toilet - no DME over toilet, patient using wall and vanity - spouse to speak with housing about potential for a GB on wall. Patient walking hallway with spouse assist only. Patient reports overall weakness in UE , FM, decreased endurance. Patient goals: feel normal again . OT to address UE/fm strength , ADL tasks and DME prn, functioanl endurance. OT plan for 2 x 4 weeks to be modified as needed. OT GOALS: 1. Patient will be I with UE HEP by 07/11/25. 2. Patient will be I with FM HEP by 07/11/25. 3. Patient will be I with showers with nc DME by 07/11/25. 4. Patient will tolerate > or =15 min of functional endurance activity without rest break by 07/11/25 to increase activity tolerance for I/ADL. 5. Patient/caregiver will demonstrate understanding of home safety, equipment and envt recommendations by 07/11/25. Instruction Provided to: patient, spouse Response to Instruction/Teaching: verb understanding of plan Plan for Next Visit Specific Focus & Education Needed: fm HEP, UE HEP New Orders: 2 x 4 weeks Updated Discharge Plan: anticipate dc end of orders HH - I/E management of care in an urgent or emergency (ER) situation: When to call your Home Care Team/911, ER plans, supplies, evacuation, when to contact local ER officials and how to stay informed Problem:HH - Emergency Planning - Knowledge of Goal:HH - Knowledge of options for managing care in the event of an emergency related situation. Completed HH - Emergency planning assessment: the emergency plan, supplies needed, emergency contact numbers and an evacuation plan were reviewed Description: Patient and Caregiver is/are knowledgeable of emergency plans. Problem:HH - Emergency Planning - Knowledge of Goal:HH - Knowledge of options for managing care in the event of an emergency related situation. Completed HH - Assess vital signs, pulse oximetry, pain, and as indicated, orthostatic vital signs Description: use agency-specific parameters Problem:HH - Standard of Care Goal:HH - Achieve care management for a safe to home/community discharge from homecare Completed HH - Assess skin integrity Problem:HH - Standard of Care Goal:HH - Achieve care management for a safe to home/community discharge from homecare Completed documented in this encounter Care Teams Track Repairer Relationship Specialty Start Date End Date Rush Martin MD [address] [place] [address] PCP - General Internal Medicine 03/24/24 documented as of this encounter Additional Source Comments The information contained in this document represents components of the legal health record. It is not the complete legal health record.[facility]
--- NOTE | 2025-06-17 11:33 | HO.NEPHOV ---
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 He has H/O left-sided hemiplegia due to subacute infarct in the right frontal lobe in September. Further imaging showed chronic lacunar infarcts bilaterally in the frontal lobe. He is not known to have diabetes. He had echocardiogram which showed normal ejection fraction. He had a bubble study which was negative. There was a question of him being lupus anticoagulant positive . He has seen Neurology and and was seen by Hematology. He has not seen any physicians for a long time prior to all these events. He recently had been feeling numbness on right side of face. He had MRI which showed new two strokes. He denies any history of sleep apnea, hypokalemia, hypercalcemia, uncontrolled thyroid disorders. He recently presented to hospital with complaints of neck pain for about 2 days as well as numbness on the left side of the face with soreness in the area of the neck & was unsure about any new weakness . He underwent imaging studies which did not show any new CVA but showed suspicious demyelinating lesion. His BP was low in the hospital and his medications were adjusted. He recently had no seizure activity. He was accompanied by his during this office visit [facility] Medical History Anticardiolipin antibody positive Seizure disorder Multiple cerebral infarctions Cognitive impairment Myocardial infarct Accelerated hypertension Left hemiparesis Pure hypercholesterolemia Acute CVA (cerebrovascular accident) Surgical History History of hernia repair History of kidney surgery Family History Mother Cancer Lung cancer Father Heart disease Social History Household Members: Spouse and Children Alcohol intake: former Patient Tobacco Use Status: Never used Tobacco Advance Directives Date on File: 06/03/25 service: Yes Current occupational status: unemployed Physical Exam Vital Signs: Last Vital Signs Pulse 65 06/17/25 11:37 BP 110/70 06/17/25 11:37 Pulse Ox 96 06/17/25 11:37 Oxygen Delivery Method Room Air 06/17/25 11:37 BMI result Body Mass Index 36.3 Const General: comfortable and no acute distress Orientation/consciousness: patient oriented x3 HEENT Head: Yes normocephalic Mouth: Normal oral and palatal mucosa present Eyes EOM: EOMs intact bilaterally Neck Neck: Yes supple Resp Auscultation: clear to auscultation bilaterally Cardio Jugular venous distension: no JVD Rate: regular rate GI Palpation (GI): Soft to palpation Auscultation: normal bowel sounds General: Yes no CVA tenderness Back/Spine/Pelvis Back: no CVA tenderness Skin General skin exam: no rashes or lesions noted Neuro General: patient oriented x3 and moves all extremities Extrem General: Yes no pedal edema Results Reviewed Nephrology Results: Hgb, (14.0-18.0) 14.9 g/dl 06/02/25 WBC, (4.8-10.8) 7.6 X10*3/uL 06/02/25 Plt Count, (160-400) 318 X10*3/uL 06/02/25 Sodium, (135-145) 141 mmol/L 06/02/25 Potassium, (3.3-5.1) 3.6 mmol/L 06/02/25 Chloride, (96-108) 100 mmol/L 06/02/25 Carbon Dioxide, (22-29) 28 mmol/L 06/02/25 BUN, (9-16) 20 mg/dL H 06/02/25 Creatinine, (0.5-1.4) 1.23 mg/dL 06/02/25 Calcium, (8.4-10.2) 9.4 mg/dL 06/02/25 Renal US 02/07/24 Assessment & Plan Assessment & Plan (1) Hypertension: Code(s): I10 - Essential (primary) hypertension Category: Medical Qualifiers: Hypertension type: primary hypertension Qualified Code(s): I10 - Essential (primary) hypertension (2) Anticardiolipin antibody syndrome: Code(s): D68.61 - Antiphospholipid syndrome Category: Medical (3) CKD (chronic kidney disease) stage 2, GFR 60-89 ml/min: Code(s): N18.2 - Chronic kidney disease, stage 2 (mild) Category: Medical Plan Kunal has hypertension for a long time. His BP is at goal on current antihypertensive medications . He needs to be on a low-sodium diet. Doppler of his renal arteries was done, given his vascular events. It did not show any renal artery stenosis He is on lipid-lowering agents. His renal functions are stable. He should continue lifestyle modification. He needs to loose weight. He is on anti coagulation given APLA. I did not make any medication changes. All his questions were answered. Follow-up appointment given. Orders: Orders Electrolytes 3 Months D68.61 - Antiphospholipid syndrome, I10 - Essential (primary) hypertension, N18.2 - Chronic kidney disease, stage 2 (mild) Creatinine 3 Months D68.61 - Antiphospholipid syndrome, I10 - Essential (primary) hypertension, N18.2 - Chronic kidney disease, stage 2 (mild) Blood Urea Nitrogen 3 Months D68.61 - Antiphospholipid syndrome, I10 - Essential (primary) hypertension, N18.2 - Chronic kidney disease, stage 2 (mild) Medications: Resumed lisinopril 40 mg PO DAILY 90 tabs 4RF chlorthalidone 25 mg PO DAILY 90 days 90 tabs 3RF Coding Level of Care Code Est Pt Level 4 (55776) Diagnoses Primary hypertension I10 Hypertension type: primary hypertension Anticardiolipin antibody syndrome D68.61 CKD (chronic kidney disease) stage 2, GFR 60-89 ml/min N18.2
[2025-06-17 11:37] VITALS: BP 110/70; PULSE 65; O2SAT 96; BMI 36.3
--- OUTSIDE RECORDS SUMMARY | 2025-06-17 13:44 | XMS_ITS | Encounter Summary ---
Author Organization [facility] Address [address] [facility] [address] [place] [address] Phone Care Team Providers Care Photovoltaic Panel Installer Name Role Phone Rush Martin MD Primary Care Provider [phone] Encounter Details Date Type Department Care Team (Late st Contact Info) Description 06/12/2025 Telephone [facility] Neurology [address] [place] [address] Emili Terrazas HI [address] [place] [address] [email or web address] Social History Tobacco Use Types Packs/Day Years [...] PM EDT documented as of this encounter Progress Notes * Emili Terrazas MA - 06/12/2025 11:49 AM EDT Patients called and left a message checking if they can make an appointment for patient to come in. Patient has had multiple strokes and they have vascular dementia. Patient will need a referralfrom PCP. Faxed a request to patients PCP to request a referral for patient to be seen. Once the office has the referral patient may be booked. documented in this encounter Plan of Treatment Upcoming Encounters Date Type Department Care Team (Late st Contact Info) Description 06/17/2025 2:00 PM EDT Home [facility] Visit [facility] [address] [place] [address] Ros Marin, OT [address] [place] [address] OT HOME VISIT 06/17/2025 3:00 PM EDT Home Care Visit [facility] [address] [place] [address] Essie Joshi RN [address] [place] [address] 06/18/2025 11:30 AM EDT [facility] [address] [place] [phone] Claire Angela, PT [address] [place] [address] 06/19/2025 Home Care Visit [facility] [address] [place] [phone] Essie Joshi, RN [address] [place] [address] 06/19/2025 2:00 PM EDT Home Care Visit [facility] [address] [place] [phone] Ros Marin, OT [address] [place] [address] 06/22/2025 1:45 AM EDT Home Care Visit [facility] [address] [place] [phone] Ros Marin, OT [address] [place] [address] 06/23/2025 Home Care Visit [facility] [address] [place] [phone] Essie Joshi RN [address] [place] [address] 06/24/2025 1:30 AM EDT Home Care Visit [facility] [address] [place] [phone] Ros Marin, OT [address] [place] [address] 06/25/2025 Home Care Visit [facility] [address] [place] [phone] Essie Joshi, OSCAR [address] [place] [address] 06/29/2025 12:45 AM EDT Home Care Visit [facility] [address] [place] [phone] Ros Marin, OT [address] [place] [address] 06/30/2025 Home Care Visit [facility] [address] [place] [phone] Essie Joshi RN [address] [place] [address] 07/01/2025 12:45 AM EDT Home Care Visit [facility] [address] [place] [phone] Ros Marin, OT [address] [place] [address] 07/06/2025 Home Care Visit [facility] [address] [place] [phone] Ros Marin, OT [address] [place] [address] 07/07/2025 1:00 AM EDT Home Care Visit [facility] [address] [place] [phone] Essie Joshi RN [address] [place] [address] 07/08/2025 Home Care Visit [facility] [address] [place] [phone] Ros Marin, OT [address] [place] [address] 07/14/2025 1:00 AM EDT Home Care Visit [facility] [address] [place] [phone] Essie Joshi RN [address] [place] [address] 07/21/2025 1:00 AM EDT [facility] [address] [place] [phone] Essie Joshi RN [address] [place] [address] 07/28/2025 12:30 AM EDT [facility] [address] [place] [phone] Essie Joshi RN [address] [place] [address] 08/04/2025 Appointment [facility] [address] [place] [phone] Essie Joshi RN [address] [place] [phone] documented as of this encounter Visit Diagnoses Not on filedocumented in this encounter Care Teams Photovoltaic Panel Installer Relationship Specialty Start Date End Date Rush Martin MD [address] [place] [address] PCP - General Internal Medicine 03/24/24 documented as of this encounter Additional Source Comments The information contained in this document represents components of the legal health record. It is not the complete legal health record.[facility]
--- OUTSIDE RECORDS SUMMARY | 2025-06-17 13:44 | XMS_ITS | Clinical Summary ---
Author Organization [facility] Address [address] [place] [address] Care Team Providers Care Home Security Professional Name Role Phone Rush Martin MD Primary [...] f 2) 2015 COVID-19 Vaccine (3 - 2024-2 6 season) 2025 02/05/2021, 01/15/2021 Influenza Vaccine (#1) 2025 , 07/22/2020, 09/29/2016 Pneumococcal Vaccine Aged Out 09/29/2016 No long er eligible based on patient's age to complete this topic Hepatitis C Screening Completed 07/22/2020 RSV Ped < 20 months Aged Out No longe r eligible based on patient's age to complete this topic Care Teams Home Security Professional Relationship Specialty Start Date End Date Rush Martin MD PCP - General Internal Medicine 12/24/23
--- OUTSIDE RECORDS SUMMARY | 2025-06-17 13:44 | XMS_ITS | Encounter Summary ---
Author Organization [facility] Address [address] [email or web address] [facility] [address] [place] [address] Phone Care Team Providers Care Special Education Tutor Name Role Phone Rush Martin MD Primary Care Provider [phone] Reason for Visit * Auth/Cert (Routine) Specialty Diagnoses / Procedures Referred By Paola t Referred To Contact Referral ID Status Reason Start Date Expiration Date Visits Re quested Visits Authorized [id number] 1 1 Encounter Details Date Type Department Care Team (Late st Contact Info) Description 06/17/2025 Home Care Visit [facility] [address] [place] [phone] Ros Marin, OT [address] [place] [address] [email or web address] TELEPHONE ENCOUNTER Social History Tobacco Use Types Packs/Day Years [...] as of this encounter Plan of Treatment Upcoming Encounters Date Type Department Care Team (Late st Contact Info) Description 06/17/2025 2:00 PM EDT Home Care Visit [facility] [address] [place] [address] Ros Marin, OT [address] [place] [address] OT HOME VISIT 06/17/2025 3:00 PM EDT [facility] [address] [place] [address] Essie Joshi, RN [address] [place] [address] 06/18/2025 11:30 AM EDT Home [facility] Visit [facility] [address] [place] [address] Claire Angela, PT [address] [place] [address] 06/19/2025 Home Care Visit [facility] [address] [place] [phone] Essie Joshi RN [address] [place] [address] 06/19/2025 2:00 PM EDT Home Care Visit [facility] [address] [place] [phone] Ros Marin, OT [address] [place] [address] 06/22/2025 1:45 AM EDT Home Care Visit [facility] [address] [place] [phone] Ros Marin, OT [address] [place] [address] 06/23/2025 Home Care Visit [facility] [address] [place] [phone] Essie Joshi RN [address] [place] [address] 06/24/2025 1:30 AM EDT Home Care Visit [facility] [address] [place] [address] Ros Marin, OT [address] [place] [address] 06/25/2025 Home Care Visit [facility] [address] [place] [phone] Essie Joshi RN [address] [place] [address] 06/29/2025 12:45 AM EDT Home Care Visit [facility] [address] [place] [address] Ros Marin, OT [address] [place] [address] 06/30/2025 Home Care Visit [facility] [address] [place] [phone] Essie Joshi RN [address] [place] [address] 07/01/2025 12:45 AM EDT Home Care Visit [facility] [address] [place] [phone] Ros Marin, OT [address] [place] [address] 07/06/2025 Home Care Visit [facility] [address] [place] [phone] Ros Marin, OT [address] [place] [address] 07/07/2025 1:00 AM EDT Home Care Visit [facility] [address] [place] [phone] Essie Joshi, OSCAR [address] [place] [address] 07/08/2025 Home Care Visit [facility] [address] [place] [address] Ros Marin, OT [address] [place] [address] 07/14/2025 1:00 AM EDT Home Care Visit [facility] [address] [place] [phone] Essie Joshi RN [address] [place] [address] 07/21/2025 1:00 AM EDT Home Care Visit [facility] [address] [place] [phone] Essie Joshi RN [address] [place] [address] 07/28/2025 12:30 AM EDT Home Care Visit [facility] [address] [place] [phone] Essie Joshi RN [address] [place] [address] 08/04/2025 Appointment [facility] [address] [place] [phone] Essie Joshi RN [address] [place] [address] documented as of this encounter Visit Diagnoses Not on filedocumented in this encounter Care Teams Special Education Tutor Relationship Specialty Start Date End Date Rush Martin MD [address] [place] [address] PCP - General Internal Medicine 03/24/24 documented as of this encounter Additional Source Comments The information contained in this document represents components of the legal health record. It is not the complete legal health record.[facility]
--- OUTSIDE RECORDS SUMMARY | 2025-06-17 13:44 | XMS_ITS | Encounter Summary ---
Author Organization [facility] Address [address] [facility] [address] [place] [address] Phone Care Team Providers Care Coach Professional Athletes Name Role Phone Rush Martin MD Primary Care Provider [phone] Reason for Visit * Auth/Cert (Routine) Specialty Diagnoses / Procedures Referred By Paola t Referred To Contact Referral ID Status Reason Start Date Expiration Date Visits Re quested Visits Authorized [id number] 1 1 Encounter Details Date Type Department Care Team (Late st Contact Info) Description 06/15/2025 Home Care Visit [facility] [address] [place] [phone] Renee Gonzalez, PT [address] [place] [address] [email or web address] TELEPHONE ENCOUNTER Social History Tobacco Use Types [...] Care Visit [facility] [address] [place] [address] Ros Marin, OT [address] [place] [address] OT HOME VISIT 06/17/2025 3:00 PM EDT Home Care Visit [facility] [address] [place] [address] Essie Joshi, RN [address] [place] [address] 06/18/2025 11:30 AM EDT Home Care Visit [facility] [address] [place] [address] Claire Angela, PT [address] [place] [address] 06/19/2025 Home Care Visit [facility] [address] [place] [phone] Essie Joshi RN [address] [place] [address] 06/19/2025 2:00 PM EDT Home Care Visit [facility] [address] [place] [phone] Ros Marin, OT [address] [place] [address] 06/22/2025 1:45 AM EDT Home Care Visit [facility] [address] [place] [phone] Ros Marin, OT [address] [place] [address] 06/23/2025 Home Care Visit [facility] [address] [place] [phone] Essie Joshi RN [address] [place] [address] 06/24/2025 1:30 AM EDT Home Care Visit [facility] [address] [place] [phone] Ros Marin, OT [address] [place] [address] 06/25/2025 Home Care Visit [facility] [address] [place] [phone] Essie Joshi RN [address] [place] [address] 06/29/2025 12:45 AM EDT Home Care Visit [facility] [address] [place] [phone] Ros Marin, OT [address] [place] [address] 06/30/2025 Home Care Visit [facility] [address] [place] [phone] Essie Joshi RN [address] [place] [address] 07/01/2025 12:45 AM EDT Home Care Visit [facility] [address] [place] [phone] Ros Marin, OT [address] [place] [address] 07/06/2025 Home Care Visit [facility] [address] [place] [phone] Ros Marin, OT [address] [place] [address] 07/07/2025 1:00 AM EDT Home Care Visit [facility] [address] [place] [phone] Essie Joshi RN [address] [place] [address] 07/08/2025 Home Care Visit [facility] [address] [place] [address] Ros Marin, OT [address] [place] [address] 07/14/2025 1:00 AM EDT Home Care Visit [facility] [address] [place] [phone] Essie Joshi RN [address] [place] [address] 07/21/2025 1:00 AM EDT Home Care Visit [facility] [address] [place] [phone] Essie Joshi RN [address] [place] [address] 07/28/2025 12:30 AM EDT Home Care Visit [facility] [address] [place] [phone] Essie Joshi RN [address] [place] [address] 08/04/2025 Appointment [facility] [address] [place] [phone] Essie Joshi RN [address] [place] [address] documented as of this encounter Visit Diagnoses Not on filedocumented in this encounter Care Teams Coach Professional Athletes Relationship Specialty Start Date End Date Rush Martin MD [address] [place] [address] PCP - General Internal Medicine 03/24/24 documented as of this encounter Additional Source Comments The information contained in this document represents components of the legal health record. It is not the complete legal health record.[facility]
--- OUTSIDE RECORDS SUMMARY | 2025-06-17 13:44 | XMS_ITS | Clinical Summary ---
Author Organization [facility] Address 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 90 tablet 5 0 Active Additional Information Patient not taking.Reported on 12/10/2023 dilTIAZem (CARDIZEM CD) 180 MG 24 hr capsuleIndicatio ns:Benign essential hypertension Take 1 capsule (180 mg total) by mouth daily. 90 capsule 3 0 Active Additional Information Patient not taking.Reported on 12/10/2023 aspirin 81 MG EC tablet Take 1 tablet by mouth every morning. 4 Active carvedilol (COREG) 12.5 MG tablet Take 12.5 mg by mouth 2 (two) times a day. 4 Active atorvastatin (LIPITOR) 80 MG tablet Take 80 mg by mouth daily. Active lisinopril (PRINIVIL,ZESTRI L) 40 MG tablet Take 1 tablet (40 mg total) by mouth daily. 90 tablet 4 Active amLODIPine (NORVASC) 5 MG tablet Take 1 tablet (5 mg total) by mouth daily. 90 tablet 4 Active carvedilol (COREG) 6.25 MG tablet Take 2 tablets (12.5 mg total) by mouth 2 (two) times a day with meals. 360 tablet 4 Active atorvastatin (LIPITOR) 80 MG tablet Take 1 tablet (80 mg total) by mouth daily. 90 tablet 4 Active clopidogrel (PLAVIX) 75 mg tablet Take 75 mg by mouth daily. 5 Active chlorthalidone (HYGROTON) 25 MG tablet Take 25 mg by mouth daily. hold until 06/16/25 5 Active labetaloL (TRANDATE) 200 MG tablet Take 200 mg by mouth 2 (two) times a day. 5 Active levETIRAcetam (KEPPRA) 500 MG tablet Take 500 mg by mouth daily. 5 Active sertraline (ZOLOFT) 25 MG tablet Take 25 mg by mouth daily. Taking 50 mg daily 5 Active lisinopril (PRINIVIL,ZESTRI L) 40 MG tablet Take 40 mg by mouth daily. Hold until 07/11/25 5 Active amLODIPine (NORVASC) 5 MG tablet Take 2.5 mg by mouth daily. 5 Active Active Problems No known active problems Encounters Date Type Department Care Team Description 06/17/2025 2:00 PM EDT Home Care Visit [facility] [address] [place] [phone] Ros Marin, OT OT HOME VISIT 06/17/2025 Home Care Visit [facility] [address] [place] [phone] Ros Marin, OT TELEPHONE ENCOUNTER 06/15/2025 Home Care Visit [facility] [address] [place] [phone] Renee Gonzalez, PT TELEPHONE ENCOUNTER 06/12/2025 11:00 AM EDT Home [facility] Visit [facility] [address] [place] [phone] Ros Marin, OT OT EVALUATION 06/12/2025 Telephone [facility] [address] [place] [address] Nini EmiliSHRUTI saha 06/11/2025 Home Care Visit [facility] [address] [place] [phone] Ros Marin OT TELEPHONE ENCOUNTER 06/10/2025 11:15 AM EDT Home Care Visit [facility] [address] [place] [phone] Essie Joshi, RN SN OASIS START OF CARE (SOC) 06/10/2025 Plan of Care Documentation [facility] [address] [place] [phone] 06/07/2025 Home Care Visit [facility] [address] [place] [phone] Porsha Mcgovern, OSCAR TELEPHONE ENCOUNTER 06/04/2025 Orders Only [facility] [address] [place] [phone] Homehealth, Interface ProviderMD from Last 3 Months Immunizations Immunization Administration Dates Next Due COVID-19 (Pre-08/06) Pfizer Vaccine, mRNA, PF ,01/15/2021 Influenza Quadrivalent Preservative Free IM 1005/2020 Family History Medical History Relation Comments CV disease Father Heart attack Father Heart disease Father Cancer Mother Relation Status Comments Brother Alive Father 68 Mother (Age 79) small cell alton g cancer Sister Alive Son Alive anxiety adhd Social History Tobacco Use Types Packs/Day Years [...] Orientation Straight 07/22/2020 2: 19 PM EDT Last Filed Vital Signs Vital Sign Reading Time Taken Comments Blood Pressure 118/80 06/12/2025 11:39 AM EDT Pulse 65 06/12/2025 11:36 AM EDT Temperature 36.3 C (97.3 F) 06/12/2025 11:36 AM EDT Respiratory Rate 16 06/10/2025 12:00 PM EDT Oxygen Saturation 99% 06/12/2025 11:36 AM EDT Inhaled Oxygen Concentration - - Weight 111.6 kg (246 lb) 06/10/2025 12:00 PM EDT Height 175.3 cm (5' 9 ) 06/10/2025 12:00 PM EDT Body Mass Index 36.33 06/10/2025 12:00 PM EDT Plan of Treatment Upcoming Encounters Date Type Department Care Team (Late st Contact Info) Description 06/17/2025 2:00 PM EDT Home Care Visit [facility] [address] [place] [phone] Ros Marin, OT [address] [place] [address] OT HOME VISIT 06/17/2025 3:00 PM EDT Home Care Visit [facility] [address] [place] [phone] Essie Joshi, RN [address] [place] [phone] 06/18/2025 11:30 AM EDT Home Care Visit [facility] [address] [place] [address] Claire Angela, PT [address] [place] [address] 06/19/2025 Home Care Visit [facility] [address] [place] [phone] Essie Joshi RN [address] [place] [address] 06/19/2025 2:00 PM EDT Home Care Visit [facility] [address] [place] [address] Ros Marin, OT [address] [place] [address] 06/22/2025 1:45 AM EDT Home Care Visit [facility] [address] [place] [address] Ros Marin, OT [address] [place] [address] 06/23/2025 Home Care Visit [facility] [address] [place] [phone] Essie Joshi, RN [address] [place] [address] 06/24/2025 1:30 AM EDT Home Care Visit [facility] [address] [place] [address] Ros Marin, OT [address] [place] [address] 06/25/2025 Home Care Visit [facility] [address] [place] [phone] Essie Joshi RN [address] [place] [address] 06/29/2025 12:45 AM EDT Home Care Visit [facility] [address] [place] [phone] Ros Marin, OT [address] [place] [address] 06/30/2025 Home Care Visit [facility] [address] [place] [phone] Essie Joshi RN [address] [place] [address] 07/01/2025 12:45 AM EDT Home Care Visit [facility] [address] [place] [phone] Ros Marin, OT [address] [place] [address] 07/06/2025 Home Care Visit [facility] [address] [place] [phone] Ros Marin, OT [address] [place] [address] 07/07/2025 1:00 AM EDT Home Care Visit [facility] [address] [place] [phone] Essie Joshi RN [address] [place] [address] 07/08/2025 Home Care Visit [facility] [address] [place] [phone] Ros Marin, OT [address] [place] [address] 07/14/2025 1:00 AM EDT Home Care Visit [facility] [address] [place] [address] Essie Joshi RN [address] [place] [phone] 07/21/2025 1:00 AM EDT Home Care Visit [facility] [address] [place] [phone] Essie Joshi RN [address] [place] [address] 07/28/2025 12:30 AM EDT Home Care Visit [facility] [address] [place] [address] Essie Joshi RN [address] [place] [phone] 08/04/2025 Appointment [facility] [address] [place] [address] Essie Joshi RN [address] [place] [phone] Health Maintenance Due Date Last Done Comments Adult Td,Tdap Booster 1965 COLOGUARD 2010 COLONOSCOPY 2010 COLORECTAL CANCER SCREENING 2010 FIT TEST 2010 FOBT 2010 SIGMOIDOSCOPY 2010 VIRTUAL COLONOSCOPY 2010 PNEUMOCOCCAL VACCINES (50+ years) (1 of 1 - PCV) 2015 ZOSTER VACCINES (1 of 2) 2015 DEPRESSION SCREENING 07/22/2021 07/22/2020 INFLUENZA VACCINE (#1) 2025 07/22/2020 COVID-19 VACCINE ( season) 2025 02/05/2021, 01/15/2021 LIPID PANEL 07/22/2025 07/22/2020, 08/06/2017 CREATININE LEVEL 11/15/2025 11/15/2024, , 08/27/2020, Additional history exists POTASSIUM LEVEL 11/15/2025 11/15/2024, 11/16, 08/27/2020, Additional history exists SCREENING FOR DIABETES 11/15/2027 11/15/2024, 2016 HEPATITIS C SCREENING Completed 07/22/2020 HIV ONE-TIME SCREENING (18-65 YEARS) Completed 07/22/2020 SMOKING STATUS SCREENING (Once After 26 Yrs) Completed 11/15/2024 HEPATITIS A VACCINES Aged Out No long er eligible based on patient's age to complete this topic HIB VACCINES Aged Out No longer eligi ble based on patient's age to complete this topic MENINGOCOCCAL VACCINES (ACWY) Aged Out No longer eligible based on patient's age to complete this topic MENINGOCOCCAL VACCINES (B) Aged Out N o longer eligible based on patient's age to complete this topic Medical Devices Not on file Procedures Procedure Name Priority Date/Time Associated Diagnosis Comments BASIC METABOLIC PANEL STAT 11/15/2024 7:28 PM EST LIPID PANEL Routine 07/22/2020 4:13 PM EDT Pure hypercholesterolemia ASCVD (arteriosclerotic cardiovascular disease) HEPATITIS C ANTIBODY, QUALITATIVE Routine 07/22/2020 4:13 PM EDT Need for hepatitis C screening test OUTSIDE GLUCOSE FASTING Routine 08/06/2017 from Last 3 Months or Most Recently Relevant to Health Maintenance Results * (ABNORMAL) Basic metabolic panel (11/15/2024 7:28 PM EST) SODIUM 138 133 - 146 mmol/L [facility] CHLORIDE 102 96 - 108 mmol/L [facility] POTASSIUM 3.5 3.3 - 5.1 mmol/L [facility] CO2 23 21 - 35 mmol/L [facility] BUN 23(H) 6 - 19 mg/dL [facility] CREATININE 1.20 0.5 - 1.5 mg/dL [facility] GLUCOSE 116(H) 70 - 99 mg/dL [facility] CALCIUM 8.3(L) 8.4 - 10.3 mg/dL [facility] EGFR 70 >59 mL/min/1.7 3m2 [facility] Comment:Estimated glomerular filtration rate calculated using the CKD-EPI refit equation. ANION GAP 17 10 - 20 mmol/L [facility] Blood 11/15/2024 7:28 PM EST 11/15/2024 7:30 PM EST us Aníbal Moe MD LAB BLOOD ORDERABLES Final Result Performing Organization Address City/[facility]/ZIP Co de Phone Number [address] [address] * Hepatitis C antibody, qualitative (07/22/2020 4:13 PM EDT) HCV NON-REACTIV E NON-REACTI VE [facility] Blood 07/22/2020 4:13 PM EDT 07/22/2020 4:23 PM EDT Issac Serrano MD LAB BLOOD ORDERABLES Final Re sult Performing Organization Address [facility]/ZIP Co de Phone Number [address] [address] * (ABNORMAL) Lipid panel (07/22/2020 4:13 PM EDT) HDL 48 mg/dL [facility] Comment: Interpretation <40 mg/dL: Low HDL cholesterol (major risk factor for CHD) Greater than or equal to 60 mg/dL: High HDL cholesterol ( negative risk factor for CHD) HDL - cholesterol is affected by a number of factors, e.g. smoking, excerise, hormones, sex and age. CHOLESTEROL 223 0 - 240 mg/dL [facility] TRIGLYCERIDES 129 30 - 160 mg/dL [facility] LDL 149(H) 50 - 129 mg/dL [facility] Comment: LDL levels in terms of risk for coronary heart disease: <100 mg/dL: Optimal 100-129 mg/dL: Near or above optimal 130-159 mg/dL: Borderline high 160-189 mg/dL: High >190 mg/dL: Very High CARDIAC RISK RATIO 4.6 3.4 - 5.0 [facility] Blood 07/22/2020 4:13 PM EDT 07/22/2020 4:23 PM EDT us Issac Serrano MD LAB BLOOD ORDERABLES Final Re sult [address] [address] * Outside Glucose,Fasting (08/06/2017) Glucose, fasting - External 87 65 - 99 mg/dL us Historical Provider LAB BLOOD ORDERABLES Jillian l Result from Last 3 Months or Most Recently Relevant to Health Maintenance Insurance [facility] [employer] 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 It is not the complete legal health record.[facility]
--- OUTSIDE RECORDS SUMMARY | 2025-06-17 13:44 | XMS_ITS | Encounter Summary ---
Author Organization [facility] Address [address] [facility] [address] [place] [address] Phone Care Team Providers Care Scrap Stripper Hand Name Role Phone Issac Serrano MD Primary Care Provider [phone] Abdirahman Calloway MD Primary Care Provider + Issac Serrano MD Primary Care Provider [phone] Rush Martin MD Primary Care Provider [phone] Encounter Details Date Type Department Care Team (Late st Contact Info) Description 08/04/2020 Procedure Pass [facility] [address] [place], [place] [phone] Social History Tobacco Use Types Packs/Day Years [...] Encounters Date Type Department Care Team (Late Contact Info) Description 06/17/2025 2:00 PM EDT Home Care Visit [facility] [address] [place] [phone] Ros Marin, OT [address] [place] [address] OT HOME VISIT 06/17/2025 3:00 PM EDT Home Care Visit [facility] [address] [place] [phone] Essie Joshi RN [address] [place] [address] 06/18/2025 11:30 AM EDT Home Care Visit [facility] [address] [place] [phone] Claire Angela, PT [address] [place] [address] 06/19/2025 Home Care Visit [facility] [address] [place] [phone] Essie Joshi RN [address] [place] [address] 06/19/2025 2:00 PM EDT Home Care Visit [facility] [address] [place] [phone] Ros Marin, OT [address] [place] [address] 06/22/2025 1:45 AM EDT Home Care Visit [facility] [address] [place] [phone] Ros Marin, OT [address] [place] [address] 06/23/2025 Home Care Visit [facility] [address] [place] [phone] Essie Joshi RN [address] [place] [address] 06/24/2025 1:30 AM EDT Home Care Visit [facility] [address] [place] [phone] Ros Marin, OT [address] [place] [address] 06/25/2025 Home Care Visit [facility] [address] [place] [phone] Essie Joshi RN [address] [place] [address] 06/29/2025 12:45 AM EDT Home Care Visit [facility] [address] [place] [phone] Ros Marin, OT [address] [place] [address] 06/30/2025 Home Care Visit [facility] [address] [place] [phone] Essie Joshi RN [address] [place] [address] 07/01/2025 12:45 AM EDT Home Care Visit [facility] [address] [place] [phone] Ros Marin, OT [address] [place] [address] 07/06/2025 Home Care Visit [facility] [address] [place] [phone] Ros Marin, OT [address] [place] [address] 07/07/2025 1:00 AM EDT Home Care Visit [facility] [address] [place] [phone] Essie Joshi RN [address] [place] [address] 07/08/2025 Home Care Visit [facility] [address] [place] [phone] Ros Marin, OT [address] [place] [address] 07/14/2025 1:00 AM EDT Home Care Visit [facility] [address] [place] [phone] Essie Joshi RN [address] [place] [address] 07/21/2025 1:00 AM EDT Home Care Visit [facility] [address] [place] [phone] Essie Joshi RN [address] [place] [address] 07/28/2025 12:30 AM EDT Home Care Visit [facility] [address] [place] [phone] Essie Joshi RN [address] [place] [phone] 08/04/2025 Appointment [facility] [address] [place] [phone] Essie Joshi RN [address] [place] [phone] documented as of this encounter Visit Diagnoses Not on filedocumented in this encounter Additional Health Concerns Infection Onset Date Last Indicated Resolved Time CoV-Risk 08/20/2020 08/27/2020 09/10/2020 1:23 AM EST CoV-Risk 12/10/2023 12/10/2023 12/21/2023 1:22 AM EST CoV-Risk 11/15/2024 11/15/2024 11/26/2024 1:22 AM EST Influenza A 11/15/2024 11/15/2024 11/22/2024 1:22 AM EST documented as of this encounter Care Teams Scrap Stripper Hand Relationship Specialty Start Date End Date Issac Serrano MD [address] [place] [address] [email or web address] PCP - General Internal Medicine 07/13/20 11/11/20 Abdirahman Calloway MD [address] [place] [address] PCP - General Family Medicine 11/12/20 11/17/20 Issac Serrano MD [address] [place] [address] [email or web address] PCP - General Internal Medicine 11/18/20 03/23/24 Rush Martin MD [address] [place] [address] PCP - General Internal Medicine 03/24/24 documented as of this encounter Additional Source Comments The information contained in this document represents components of the legal health record. It is not the complete legal health record.[facility]
== END 2025-06-17 12:00 | disposition home or self-care (01) ==
LOC: HO.HKA 11:09
PROVIDERS: PCP Internal Medicine; Visit Provider Internal Medicine Nephrology
DX: I12.9 Hypertensive chronic kidney disease with stage 1 through stage 4 chronic kidney disease, or unspecified chronic kidney disease (principal); D68.61 Antiphospholipid syndrome; N18.2 Chronic kidney disease, stage 2 (mild)
CPT/HCPCS: 99214

== ENCOUNTER → 2025-06-17 11:08 | Outpatient (BNVA) | payer OTHER, SELFPAY | PROVIDERS: PCP Internal Medicine; Visit Provider Internal Medicine Nephrology | DX: I10 Essential (primary) hypertension (principal); D68.61 Antiphospholipid syndrome; N18.2 Chronic kidney disease, stage 2 (mild) | CPT/HCPCS: 99212 ==

== ENCOUNTER 2025-08-06 15:35 | Outpatient (REF) | payer OTHER, SELFPAY | END 2025-08-06 15:36 | disposition home or self-care (01) | LOC: HO.LAB 15:35 | PROVIDERS: PCP Internal Medicine; Visit Provider Psychiatry & Neurology Neurology | DX: D68.61 Antiphospholipid syndrome (principal); G40.909 Epilepsy, unspecified, not intractable, without status epilepticus; G37.9 Demyelinating disease of central nervous system, unspecified; G35.D Multiple sclerosis, unspecified; Z79.899 Other long term (current) drug therapy | CPT/HCPCS: 99212 ==

== ENCOUNTER 2025-08-06 15:35 | Outpatient (AMB) | payer OTHER, SELFPAY ==
--- OUTSIDE RECORDS SUMMARY | 2025-08-04 10:00 | XMS_ITS | Encounter Summary ---
Author Organization [employer] Address [address] [facility] [address] [place] [address] Care Team Providers Care Process Safety Engineering Technologist Name Role Phone Kunal Alcala MD Primary Care Provider [phone] Reason for Visit * Reason Comments Hypertension Hyperlipidemia Encounter Details Date Type Department Care Team ([facility] st Contact Info) Description 08/04/2025 10:00 AM EDT Office Visit [address] [phone] Kunal Alcala MD [address] [place] [phone] Encounter for immunization (Primary Dx); Screening for depression [Z13.31]; Dietary counseling; Exercise counseling; Class 2 severe obesity due to excess calories with serious comorbidity and body mass index (BMI) of 36.0 to 36.9 in adult; Encounter for screening for malignant neoplasm of colon; Screen for STD (sexually transmitted disease); Screening for diabetes mellitus; Dyslipidemia Social History Tobacco Use Types Packs/Day Years Used Date Smoking Tobacco: Never Passive Smoke Exposure: Never Smokeless Tobacco: Never Alcohol Use Standard Drinks/Week Comments Not Currently 0 (1 standard drink = 0.6 oz pur e alcohol) Depression Answer Date Recorded Patient Health Questionnaire-9 Score 12 08/04/2025 Patient Health Questionnaire-9 Score 12 08/04/2025 Last PHQ-9: Questionnaire Data Not on file 1 Housing Stability Answer Date Recorded What is your housing situation today? I have demetrio anderson 08/04/[address] you li ve. Do you have problems with any of the following? None of the above 08/04/2025 Food Insecurity Answer Date Recorded Within the past 12 months, y ou worried that your food would run out before you got money to buy more: Never True 08/04/2025 Within the past 12 months,th e food you bought just didn't last and you didn't have enough money to get more: Never True Transportation Answer Date Recorded In the past 12 months, has l ack of transportation kept you from medical appts, meetings, work or from getting things needed for daily living? No 08/04/2025 Utilities Answer Date Recorded In the past 12 months, has t he listedplaces, gas, oil or water [employer] threatened to shut off services in your home? No 08/04/2025 Depression Answer Date Recorded Patient Health Questionnaire-2 Score 1 08/04/2025 Internet Access Answer Date Recorded Internet Access Q1 Yes 08/04/2025 Internet Access Q2 Not on file 08/04/2025 Sex and Gender Information Value Date Recorded Sex Assigned at Male 07/02/2025 10:44 AM EDT Legal Sex Male 10:41 AM EDT Gender Identity Male 07/02/2025 10:44 AM EDT Sexual Orientation Straight 07/02/2025 10 :44 AM EDT documented as of this encounter Last Filed Vital Signs Vital Sign Reading Time Taken Comments Blood Pressure 103/68 08/04/2025 10:00 AM EDT Pulse 65 08/04/2025 10:00 AM EDT Temperature 36.4 C (97.6 F) 08/04/2025 10:00 AM EDT Respiratory Rate - - Oxygen Saturation 97% 08/04/2025 10:00 AM EDT Inhaled Oxygen Concentration - - Weight 113 kg (249 lb) 08/04/2025 10:00 AM EDT Height 175.3 cm (5' 9 ) 08/04/2025 10:00 AM EDT Body Mass Index 36.77 08/04/2025 10:00 AM EDT documented in this encounter Functional Status * Over the past 2 weeks, how often have you been bothered by any of the following problems? Question Answer Date of Assessment Author Patient Health Questionnaire-2 Score 1 07/16 10:24 AM EDT Lluvia Elliott * Little interest or pleasure in doing things Answer Date of Assessment Author Several days 08/04/2025 10:24 AM EDT Lluvia Elliott * Feeling down, depressed, or hopeless Answer Date of Assessment Author Not at all 08/04/2025 10:24 AM Lluvia Barahona * Trouble falling or staying asleep, or sleeping too much Answer Date of Assessment Author More than half the days 08/04/2025 10:24 AM Lluvia Barahona * Feeling tired or having little energy Answer Date of Assessment Author Nearly every day 08/04/2025 10:24 AM Lluvia Tan * Poor appetite or overeating Answer Date of Assessment Author Not at all 08/04/2025 10:24 AM Lluvia Barahona * Feeling bad about yourself - or that you are a failure or have let yourself or your family down Answer Date of Assessment Author Not at all 08/04/2025 10:24 AM Lluvia Barahona * Trouble concentrating on things, such as reading the newspaper or watching television Answer Date of Assessment Author Nearly every day 08/04/2025 10:24 AM Lluvia Tan * Moving or speaking so slowly that other people could have noticed? Or the opposite - being so fidgety or restless that you have been moving around a lot more than usual. Answer Date of Assessment Author Nearly every day 08/04/2025 10:24 AM Lluvia Tan * Thoughts that you would be better off or hurting yourself in some way Answer Date of Assessment Author Not at all 08/04/2025 10:24 AM Lluvia Barahona * Patient Health Questionnaire-9 Score Answer Date of Assessment Author 12 08/04/2025 10:24 AM Lluvia Barahona * How difficult have these problems made it for you to do your work, take care of things at home, or get along with other people? Answer Date of Assessment Author Somewhat difficult 08/04/2025 10:24 AM Lluvia Fernandes * Over the last 2 weeks, how often have you been bothered by any of the following problems? Question Answer Date of Assessment Author Feeling nervous, anxious, or on edge 2 07/16 10:25 AM Lluvia Barahona Not being able to stop or co ntrol worrying 1 08/04/2025 10:25 AM Lluvia Barahona Worrying too much about diff erent things 2 08/04/2025 10:25 AM Lluvia Barahona Trouble relaxing 3 08/04/2025 10:25 AM Lluvia Barahona Being so restless that it is hard to sit still 0 08/04/2025 10:25 AM Lluvia Barahona Becoming easily annoyed or irritable 2 07/16 10:25 AM Lluvia Barahona Feeling afraid as if somethi ng awful might happen 3 08/04/2025 10:25 AM Lluvia Barahona JANETTE-7 Total Score 13 08/04/2025 10:25 AM Lluvia Barahona documented as of this encounter Progress Notes * Kunal Alcala MD - 08/04/2025 10:00 AM EDT Subjective Patient ID: Favian Francois is a 59 y.o. male who presents today for Chief Complaint Patient presents with Hypertension Hyperlipidemia Favian Francois, 59-year-old male, reports needing ongoing monitoring of his cholesterol and continuation of atorvastatin therapy, as restarted during his last hospitalization. He has a history ofmultiple strokes since September 2023, including a TIA in May 2025, and estimates he has had approximately nine strokes in total. He describes a hemorrhagic stroke on the right side and notes the placement of a loop recorder for cardiac monitoring, which has been functioning well. He was diagnosed with anticardiolipid syndrome and is followed by neurology for this condition. He was diagnosed with chronic kidney disease, stage 2, following lab work during his May 2025 hospitalization. He has a history of heart attack approximately eight years ago and was recently diagnosed with vascular dementia. He also has a seizure disorder, with one severe seizure in November 2024, for which he is currently taking Keppra. He expresses frustration regarding frequent changes to his blood pressure medications during hospitalizations, noting that his blood pressure is usually well controlled as an outpatient. Current medications include amlodipine, chlorthalidone, lisinopril, aspirin, sertraline, and Keppra. He reports persistent fatigue, feeling constantly tired and achy, with symptoms worsening after his last TIA. He describes weakness and paralysis on the left side since the most recent TIA. He endorses depression, sadness, and anxiety, and notes ongoing coughing and chronic swelling of his legs. He reports urine with a strong odor but denies pain or blood in the urine. Past surgical history includes kidney stones removed by lithotripsy and hernia repair in childhood.Family history is notable for his father having a heart attack and stroke in his late 60s and his mother dying of lung cancer. Denies history of smoking, vaping, and alcohol use. He has not undergonecolonoscopy or colon cancer screening. Review of Systems Constitutional: Positive for fatigue. Negative for chills and fever. HENT: Negative for sore throat. Eyes: Negative for pain. Respiratory: Positive for cough and shortness of breath. Cardiovascular: Positive for leg swelling. Negative for chest pain. Gastrointestinal: Negative for abdominal pain, nausea and vomiting. Genitourinary: Negative for dysuria and hematuria. Musculoskeletal: Negative for arthralgias. Psychiatric/Behavioral: Negative for self-injury and sleep disturbance. The patient is nervous/anxious. Objective BP 103/68 Pulse 65 Temp 97.6 ??F (36.4 ??C) (Temporal) Ht 5' 9 (1.753 m) Wt 249 lb (113 kg) SpO2 97% BMI 36.77 kg/m?? Physical Exam Constitutional: Appearance: Normal appearance. HENT: Right Ear: Tympanic membrane normal. Left Ear: Tympanic membrane normal. Nose: Nose normal. Mouth/Throat: Mouth: Mucous membranes are moist. Pharynx: Oropharynx is clear. Eyes: Pupils: Pupils are equal, round, and reactive to light. Cardiovascular: Heart sounds: Normal heart sounds. Pulmonary: Breath sounds: Normal breath sounds. Abdominal: Palpations: Abdomen is soft. There is no mass. Tenderness: There is no abdominal tenderness. Neurological: Mental Status: He is oriented to person, place, and time. Assessment/Plan Problem List Items Addressed This Visit None Visit Diagnoses Encounter for immunization - Primary Relevant Medications Aspirin (Vazalore) 81 MG capsule Other Relevant Orders Flu vaccine greater than or equal to 6 months old, preservative free IM (Completed) Screening for depression [Z13.31] Relevant Medications sertraline (Zoloft) 25 MG tablet Dietary counseling Relevant Medications atorvastatin (Lipitor) 80 MG tablet Exercise counseling Relevant Medications atorvastatin (Lipitor) 80 MG tablet Class 2 severe obesity due to excess calories with serious comorbidity and body mass index (BMI) of36.0 to 36.9 in adult Relevant Medications atorvastatin (Lipitor) 80 MG tablet Encounter for screening for malignant neoplasm of colon Relevant Orders Cologuard?? colon cancer screening Screen for STD (sexually transmitted disease) Relevant Medications Aspirin (Vazalore) 81 MG capsule Other Relevant Orders HIV-1/2 Antigen and Antibodies, Fourth Generation, with Reflexes Hepatitis C Antibody with Reflex to HCV, RNA, Quantitative, Real-Time PCR Screening for diabetes mellitus Relevant Medications atorvastatin (Lipitor) 80 MG tablet lisinopril 40 MG tablet Other Relevant Orders Comprehensive Metabolic Panel Hemoglobin A1c Dyslipidemia Relevant Medications Aspirin (Vazalore) 81 MG capsule atorvastatin (Lipitor) 80 MG tablet clopidogrel (Plavix) 75 MG tablet Other Relevant Orders Lipid Panel with Reflex to Direct LDL Comprehensive Metabolic Panel Screening for depression: - Depression and anxiety acknowledged. Currently managed with sertraline 50 mg prescribed by neurology. - Recommended discussion with neurologist regarding depression management during upcoming appointment on . Dietary counseling: - Dietary modification recommended to improve cardiovascular, renal, and metabolic health. - Recommended increasing intake of fruits, vegetables, and plant-based proteins. Advised consideration of a predominantly vegetarian diet to reduce cholesterol and improve overall health. Provided education on the benefits of dietary changes for chronic conditions. Exercise counseling: - Physical activity encouraged to support weight loss and cardiovascular health. - Recommended regular walking and increased physical activity as tolerated. Advised gradual increase in exercise to improve energy and support weight management. Class 2 severe obesity due to excess calories with serious comorbidity and body mass index (BMI) of36.0 to 36.9 in adult: - Severe obesity with comorbidities including cardiovascular and renal disease. - Discussed weight loss strategies including dietary modification and increased physical activity. Offered option of GLP-1 agonist weight loss injections if additional support is desired. Encounter for immunization: - Immunization status reviewed. - Administered influenza vaccine. Recommended consideration of shingles and pneumonia vaccines, available at pharmacy. Encounter for screening for malignant neoplasm of colon: - Colon cancer screening indicated. - Ordered Cologuard stool test for home completion. Provided instructions for sample collection andsubmission. Screen for STD (sexually transmitted disease): - STD screening indicated as part of routine preventive care. - Ordered laboratory screening for sexually transmitted diseases. Screening for diabetes mellitus: - Diabetes screening indicated due to comorbidities. - Ordered comprehensive metabolic panel including glucose for diabetes screening. Dyslipidemia: - Dyslipidemia managed with atorvastatin 80 mg. Target LDL cholesterol less than 70 mg/dL, ideally less than 55 mg/dL, due to history of cardiovascular and cerebrovascular disease. - Ordered fasting lipid panel to monitor cholesterol levels and assess efficacy of atorvastatin. Follow-up scheduled in three months to review results and adjust therapy as needed. Follow up in about 3 months (around 11/04/2025) for Chronic disease follow up. This visit documentation was prepared using voice-enabled artificial intelligence software (Naviswissinical notes). documented in this encounter Plan of Treatment Upcoming Encounters Date Type Department Care Team (Late st Contact Info) Description 11/05/2025 9:20 AM EST Office Visit [address] [phone] Kunal Alcala MD [address] [place] [phone] Scheduled Orders Name Type Priority Associated Diagnoses Orde r Schedule Lipid Panel with Reflex to Direct LDL Lab Routine Dyslipidemia Expected: 08/04/2025 (Approximate), Expires: 08/04/2026 Comprehensive Metabolic Panel Lab Routine Screening for diabetes mellitus Dyslipidemia Expected: 08/04/2025, Expires: 08/04/2026 Cologuard colon cancer screening Lab Routine Encounter for screening for malignant neoplasm of colon Expected: 08/04/2025 (Approximate), Expires: 08/04/2026 HIV-1/2 Antigen and Antibodies, Fourth Generation, with Reflexes Lab Routine Screen for STD (sexually transmitted disease) Expected: 08/04/2025 (Approximate), Expires: 08/04/2026 Hepatitis C Antibody with Reflex to HCV, RNA, Quantitative, Real-Time PCR Lab Routine Screen for STD (sexually transmitted disease) Expected: 08/04/2025 (Approximate), Expires: 08/04/2026 Hemoglobin A1c Lab Routine Screening for diabetes mellitus Expected: 08/04/2025 (Approximate), Expires: 08/04/2026 documented as of this encounter Visit Diagnoses Diagnosis Encounter for immunization- Primary Screening for depression [Z13.31] Screening for depression Dietary counseling Dietary surveillance and counseling Exercise counseling Class 2 severe obesity due to excess calories with serious comorbidity and body mass index (BMI) of 36.0 to 36.9 in adult Encounter for screening for malignant neoplasm of colon Screen for STD (sexually transmitted disease) Screening examination for venereal disease Screening for diabetes mellitus Dyslipidemia Other and unspecified hyperlipidemia documented in this encounter Additional Health Concerns Assessment Noted Time PHQ-9 Depression Total Score: 12 025 10:24 AM EDT documented as of this encounter Care Teams Process Safety Engineering Technologist Relationship Specialty Start Date End Date Kunal Alcala MD [address] [place] [address] PCP - General Internal Medicine 08/04/25 documented as of this encounter
--- NOTE | 2025-08-06 15:51 | A.OFFVIS_ITS ---
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 He had an MRI at [place] that revealed acute infarction and he was admitted at [facility].His labs at [facility] in 2023 revealed AZEB of 320 and anticardiolipin antibody titer of 31.7. In Nov, he was at [facility] after a convulsion with loss of bowel control. He is presenting for the evaluation of recent MRI findings and neurological symptoms. He has experienced right-sided frontal head pain, left facial drooping, and numbness since May. Initially considered to be due to a stroke, recent diagnostic imaging suggests Multiple Sclerosis as the primary contributing factor. Previous MRIs, which were performed out of town, were unavailable for review. Over time, his physical decline became apparent, with muscle and bone pain exacerbated by activity and increasing left-sided weakness since his last hospital admission. He recounted a recent episode of hand dysfunction indicative of neuromuscular impairment. The patient?s medical background includes antiphospholipid syndrome with elevated anticoagulated IgM titers, coronary artery disease with a heart attack occurring eight years prior, and a seizure disorder for which he remains on medication. Cognitive concerns include a diagnosis of dementia potentially exacerbated by both stroke history and MS lesions. [facility] Medical History Anticardiolipin antibody positive Seizure disorder Multiple cerebral infarctions Cognitive impairment Myocardial infarct Accelerated hypertension Left hemiparesis Pure hypercholesterolemia Acute CVA (cerebrovascular accident) Surgical History History of hernia repair History of kidney surgery Family History Mother Cancer Lung cancer Father Heart disease Social History Household Members: Spouse and Children Alcohol intake: former Patient Tobacco Use Status: Never used Tobacco Advance Directives Date on File: 06/03/25 service: Yes Current occupational status: unemployed Review of Systems Narrative - Neurological: Reports headaches, left-sided weakness, involuntary hand contractions, muscle and bone aches, seizures. Denies additional weakness outside described episodes. - Cardiovascular: Reports history of coronary artery disease and past heart attack. - Psychiatric: Reports dementia-related symptoms; denies hallucinations. Physical Exam Neuro Other: Mental Status: He is alert and awake with normal spontaneity of speech fluency comprehension and flat affect. Cranial Nerves: CN II: Visual lloyd full to confrontation, visual acuity intact. CN III, IV, : Pupils equal, round, reactive to light and accommodation. Extraocular movements are normal. CN V: Facial sensation is normal. CN VII: Facial movements symmetrical. CN VIII: Hearing intact to bedside conversation is normal. CN IX, X: Palate elevates symmetrically. CN XI: Shoulder shrug and head turn symmetrical. CN XII: Tongue midline without atrophy or fasciculations. Deep tendon reflexes are on the brisk side. Gait: Slightly wide-based and cautious. Extrapyramidal: Full facial expressions and blinking. No rigidity. Movements are appropriate with no tremor or abnormality. Speech: Normal; no dysarthria or tremor. Assessment & Plan Assessment & Plan (1) Anticardiolipin antibody syndrome: Code(s): D68.61 - Antiphospholipid syndrome Category: Medical (2) Seizure disorder: Code(s): G40.909 - Epilepsy, unspecified, not intractable, without status epilepticus Category: Medical (3) Demyelinating disease of central nervous system: Comment: MRI brain WO at [facility] in May 2025: Multiple lesions with a pattern suggestive of demyelinating disease instead of vascular, none acute CTA brain and neck at [facility] in May 2025: [place] Code(s): G37.9 - Demyelinating disease of central nervous system, unspecified Category: Medical (4) Multiple sclerosis: Code(s): G35 - Multiple sclerosis Category: Medical Plan Impression: 59 years old man with history of coronary artery disease status post RI, has quite an abnormal MRI of brain, AZEB titer of 320, and anticardiolipin IgM titer of 31. I have not reviewed his MRI of brain done at [facility] as the CD could not open. His MRI of brain done in May of 2025 at [facility] was reviewed and it revealed significant pathology that is suggesting demyelinating disease more than vascular. As far as anticardiolipin antibody syndrome is concerned, I would recommend continuing anti-platelet therapy but that alone might not suffice. I am arranging a lumbar puncture to check oligoclonal bands and evoked potential studies to gather more data regarding demyelinating disease. Orders: Orders CSF Total Protein Today G37.9 - Demyelinating disease of central nervous system, unspecified Auditory evoked potential Today Somatosensory evoked potential Today FL guided lumbar puncture LP Today G37.9 - Demyelinating disease of central nervous system, unspecified CSF Cell Count w Diff Today G37.9 - Demyelinating disease of central nervous system, unspecified CSF Culture + Gram stain Today G37.9 - Demyelinating disease of central nervous system, unspecified CSF Glucose Today G37.9 - Demyelinating disease of central nervous system, unspecified Immunofixation, CSF Today G37.9 - Demyelinating disease of central nervous system, unspecified EP Visual Evoked Potential Today G37.9 - Demyelinating disease of central nervous system, unspecified Coding Level of Care Code Est Pt Level 5 (33716) Diagnoses Anticardiolipin antibody syndrome D68.61 Seizure disorder G40.909 Demyelinating disease of central nervous system G37.9 Multiple sclerosis G35
--- OUTSIDE RECORDS SUMMARY | 2025-08-06 19:12 | XMS_ITS | Encounter Summary ---
Author Organization [facility] Address [address] [place] [address] Care Team Providers Care Ore Buyer Name Role Phone Rush Martin MD Primary Care Provider [phone] Reason for Visit * Reason Onset Date Comments Barium swallow question 07/01/2025 Encounter Details Date Type Department Care Team ([facility] st Contact Info) Description 07/01/2025 Telephone Internal Medicine - [place] [address] [facility] [address] [place] [address] Rush Martin MD [address] [facility] [address] [place] [address] Social History Tobacco Use Types Packs/Day Years Used Date Smoking Tobacco: Never Smokeless Tobacco: Never Alcohol Use Standard Drinks/Week Comments Not Currently 0 (1 standard drink = 0.6 oz pur e alcohol) Sex and Gender Information Value Date Recorded Sex Assigned at Male 07/01/2025 9:07 AM EDT Legal Sex Male 11:04 AM EDT Gender Identity Male 07/01/2025 9:07 AM EDT Sexual Orientation Straight 07/01/2025 9: 07 AM EDT documented as of this encounter Progress Notes * Surekha Johnson MA - 07/01/2025 9:43 AM EDT Faxed order to [phone] * Alesia Ordaz - 07/01/2025 9:20 AM EDT Patient called and requested the order for the barium swallow test be sent over to [facility] because he would like to go there instead. Please advise Cb# [phone] documented in this encounter Plan of Treatment Not on file documented as of this encounter Visit Diagnoses Not on filedocumented in this encounter Care Teams Ore Buyer Relationship Specialty Start Date End Date Rush Martin MD [address] [address] PCP - General 12/24/23 documented as of this encounter
--- OUTSIDE RECORDS SUMMARY | 2025-08-06 19:12 | XMS_ITS | Clinical Summary ---
Author Organization [employer] Address [address] [place] [address] Care Team Providers Care Shank Stitcher Name Role Phone Kunal Alcala MD Primary Care Provider [phone] Allergies No known active allergies Medications amLODIPine (Norvasc) 5 MG tablet Take 2.5 mg by mouth Once per day. 4 Active Aspirin (Vazalore) 81 MG capsule Take 1 capsule by mouth Once per day. Active atorvastatin (Lipitor) 80 MG tablet Take 80 mg by mouth Once per day. 4 Active chlorthalidone (Hygroton) 25 MG tablet Take 25 mg by mouth Once per day. 5 Active clopidogrel (Plavix) 75 MG tablet Take 75 mg by mouth Once per day. Active labetalol (Normodyne) 200 MG tablet Take 400 mg by mouth 2 times daily. 4 Active levETIRAcetam (Keppra) 500 MG tablet Take 500 mg by mouth 2 times daily. 5 Active lisinopril 40 MG tablet Take 40 mg by mouth Once per day. Active sertraline (Zoloft) 25 MG tablet Take 50 mg by mouth Once per day. Active hydroCHLOROthia zide (HYDRODiuril) 25 MG tablet Take 25 mg by mouth Once per day. 0 08/04/20 25 Discontinu ed(Ineffec tive) Encounters Date Type Department Care Team Description 08/04/2025 10:00 AM EDT Office Visit [address] [phone] Kunal Alcala MD Encounter for immunization (Primary Dx); Screening for depression [Z13.31]; Dietary counseling; Exercise counseling; Class 2 severe obesity due to excess calories with serious comorbidity and body mass index (BMI) of 36.0 to 36.9 in adult; Encounter for screening for malignant neoplasm of colon; Screen for STD (sexually transmitted disease); Screening for diabetes mellitus; Dyslipidemia from Last 3 Months Immunizations Immunization Administration Dates Next Due Influenza injectable quadrivalent preservative f ree 07/22/2020 Influenza, seasonal, injectable, preservative fr ee 08/04/2025 Family History Medical History Relation Name Comments Coronary artery disease Father Lung cancer Mother Relation Name Status Comments Father Mother Social History Tobacco Use Types Packs/Day [...] the past 12 months, has t he electric, gas, oil or water company threatened to shut off services in your [...] Orientation Straight 07/02/2025 10 :44 AM EDT Last Filed Vital Signs Vital Sign [...] Mass Index 36.77 08/04/2025 10:00 AM EDT Plan of Treatment Upcoming Encounters Date Type Department Care Team (Late st Contact Info) Description 11/05/2025 9:20 AM EST Office Visit [facility] [address] [place] [address] Kunal Alcala MD [address] [place] [address] Health Maintenance Due Date Last Done Comments CT Colonography 1965 Colonoscopy 1965 Colorectal Cancer Screening 1965 FIT DNA/Cologuard 1965 FIT 1965 FOBT 1965 HIV Screening 1965 Lipid Panel 1965 Sigmoidoscopy 1965 Disability Screening 1965 Hepatitis C Screening 1983 DTaP/Tdap/Td Vaccines (1 - Tdap) 1984 Hepatitis B Vaccines (1 of 3 - 19+ 3-dose series) 1984 Pneumococcal Vaccine: 50+ Years (1 of 1 - PCV) 2015 Zoster Vaccines (1 of 2) 2015 COVID-19 Vaccine (3 - 2024-2 6 season) 2025 02/05/2021, 01/15/2021 Depression Monitoring 02/02/2026 08/04/2025 , 08/04/2025 Alcohol/Substance Use Screening 08/04/2026 08/04/2025 SDOH Screening 08/04/2026 08/04/2025 Tobacco Screening 08/04/2026 08/04/2025 RSV Patients and Patients Aged 60 years or older (1 - 1-dose 75+ series) 2040 Influenza Vaccine Completed 08/04/2025, 07/22/2020 HIB Vaccines Aged Out No longer eligi ble based on patient's age to complete this topic HPV Vaccines Aged Out No longer eligi ble based on patient's age to complete this topic Hepatitis A Vaccines Aged Out No long er eligible based on patient's age to complete this topic IPV Vaccines Aged Out No longer eligi ble based on patient's age to complete this topic Meningococcal B Vaccine Aged Out No l onger eligible based on patient's age to complete this topic Meningococcal Vaccine Aged Out No soni sal eligible based on patient's age to complete this topic RSV under 20 months Aged Out No longe r eligible based on patient's age to complete this topic Rotavirus Vaccines Aged Out No longer eligible based on patient's age to complete this topic Insurance [facility] Care Teams Shank Stitcher Relationship Specialty Start Date End Date Kunal Alcala MD [address] [place] [phone] PCP - General Internal Medicine 08/04/25
--- OUTSIDE RECORDS SUMMARY | 2025-08-06 19:12 | XMS_ITS | Clinical Summary ---
Author Organization [facility] Address [address] [place] [address] Phone Care Team Providers Care Head Wrestling Coach Name Role Phone Rush Martin MD Primary Care Provider [phone] Allergies No known active allergies Medications amLODIPine (NORVASC) 5 mg tablet Take 0.5 tablets (2.5 mg total) by mouth daily. 12/10/2023 Active aspirin (Vazalore) 81 mg capsule Take 1 capsule by mouth 1 (one) time each day. Active chlorthalidone (HYGROTON) 25 mg tablet Take 1 tablet (25 mg total) by mouth daily. 06/10/2025 Active clopidogreL (PLAVIX) 75 mg tablet Take 1 tablet (75 mg total) by mouth daily. 06/10/2025 Active labetaloL (NORMODYNE) 200 mg tablet Take 2 tablets (400 mg total) by mouth 2 (two) times a day. 02/29/2024 Active levETIRAcetam (KEPPRA) 500 mg tablet Take 1 tablet (500 mg total) by mouth daily. 06/10/2025 Active lisinopril (PRINIVIL,ZESTR IL) 40 mg tablet Take 1 tablet (40 mg total) by mouth daily. 12/10/2023 Active sertraline (ZOLOFT) 25 mg tablet Take 2 tablets (50 mg total) by mouth daily. 06/10/2025 Active atorvastatin (LIPITOR) 80 mg tablet Take 1 tablet (80 mg total) by mouth 1 (one) time each day. 90 each 1 06/11/2025 Active Encounters Date Type Department Care Team Description 07/01/2025 Telephone Internal Medicine [address] [address] Rush Martin MD 06/23/2025 [facility] [address] [address] [place] 06/23/2025 [facility] [address] [address] [place] 06/19/2025 [facility] [address] [address] Rush Martin MD 06/12/2025 [facility] [address] [address] Rush Martin MD 06/11/2025 2:30 PM EDT Office Visit Internal [address] [address] Rush Martin MD Hospital discharge follow-up (Primary Dx); TIA (transient ischemic attack); Hypercholesterolemia; Primary hypertension 06/10/2025 [facility] [address] [address] Rush Martin MD 06/10/2025 [facility] [address] [address] Rush Martin MD from Last 3 Months Immunizations Immunization Administration Dates Next Due Pfizer SARS-CoV-2 COVID-19, mRNA, LNP-S, preservative free 02/05/2021,01/15/2021 Surgical History Surgery Date Site/Laterality Comments KIDNEY STONE SURGERY PROCEDURE:KIDNEY STONE SURGERY Medical History Medical History Date Comments Stroke (CMS/HCC V24, CMS/HCC V28) DX:Stroke (HCC) Hypertension DX:Hypertension Chronic kidney disease DX:Chroni c kidney disease Family History Medical History Relation Name Comments [...] Orientation Straight 07/01/2025 9: 07 AM EDT Obstetrics History Last Filed Vital Signs Vital Sign Reading Time Taken Comments Blood Pressure 120/80 06/11/2025 2:56 PM EDT Pulse 61 06/11/2025 2:56 PM EDT Temperature 35.9 C (96.7 F) 06/11/2025 2:56 PM EDT Respiratory Rate - - Oxygen Saturation 98% 06/11/2025 2:56 PM EDT Inhaled Oxygen Concentration - - Weight 112 kg (248 lb) 06/11/2025 2:56 PM EDT Height 175.3 cm (5' 9 ) 06/11/2025 2:56 PM EDT Body Mass Index 36.62 06/11/2025 2:56 PM EDT Plan of Treatment Health Maintenance Due Date Last Done Comments Colorectal Cancer Screening: Colonoscopy 1965 Hepatitis B Vaccines (1 of 3 - 19+ 3-dose series) 1984 Zoster Vaccines (1 of 2) 2015 Pneumococcal Vaccine: 50+ Years (2 of 2 - PCV) 09/29/2017 09/29/2016 HIV Screening 05/09/2024 Social Influencers of Health Screening 05/09/2024 Depression Screening 10/15/2024 Hypertension/CHF/CAD Annual BMP Blood Test 06/11/2025 05/13/2024, 08/27/2020, 07/22/2020 COVID-19 Vaccine (3 - 2024-2 6 season) 2025 02/05/2021, 01/15/2021 Influenza Vaccine (#1) 2025 , 07/22/2020, 09/29/2016 Cholesterol Screening (Lipid Panel) 07/22/2025 07/22/2020 DTaP,Tdap,and Td Vaccines (2 - Td or Tdap) 10/19/2026 10/19/2016 RSV Immunization Adult Patients (1 - 1-dose 75+ series) 2040 Hepatitis C Screening Completed 07/22/2020 HIB Vaccines Aged Out No longer [...] on patient's age to complete this topic MMR Vaccines Aged Out No longer eligi ble based on patient's age to complete this topic Meningococcal ACWY Vaccine Aged Out N o longer eligible based on patient's age to complete this topic Meningococcal B Vaccine Aged Out No l onger eligible based on patient's age to complete this topic RSV Immunization Patients Under 20 months Aged Out No longer eligible b ased on patient's age to complete this topic Varicella Vaccines Aged Out No longer eligible based on patient's age to complete this topic Procedures Procedure Name Priority Date/Time Associated Diagnosis Comments EXTERNAL MRI REPORT 06/02/[address] REPORT 06/02/[address] REPORT 06/02/2025 from Last 3 Months Results * External MRI Report (06/02/2025) Anatomical Region Laterality Modality Magnetic Resonan ce us Provider [facility] MRI PROCEDURES Final Result * External CT Report (06/02/2025) Only the most recent of2 resultswithin the time period is included. Anatomical Region Laterality Modality Computed Tomogra phy us Provider [facility] CT PROCEDURES Final Result from Last 3 Months Insurance [facility] Care Teams Head Wrestling Coach Relationship Specialty Start Date End Date Rush Martin MD [address] [facility] [address] [place] [address] PCP - General 12/24/23
--- OUTSIDE RECORDS SUMMARY | 2025-08-06 19:13 | XMS_ITS | Encounter Summary ---
Author Organization [facility] Address [facility] access hospital [address] [place] [address] Phone Care Team Providers Care Car Mechanic Name Role Phone Issac Serrano MD Primary Care Provider [phone] Abdirahman Calloway MD Primary Care Provider + Issac Serrano MD Primary Care Provider [phone] Rush Martin MD Primary Care Provider Encounter Details Date Type Department Care Team (Late st Contact Info) Description 08/04/2020 Procedure [facility] [address] [place] [address] Social History Tobacco Use Types Packs/Day Years [...] documented as of this encounter Care Teams Car Mechanic Relationship Specialty Start Date End Date Issac Serrano MD [address] [place] [address] [email or web address] PCP - General Internal Medicine 07/13/20 11/11/20 Abdirahman Calloway MD [address] [place] [address] PCP - General Family Medicine 11/12/20 11/17/20 Issac Serrano MD [address] [place] [address] [email or web address] PCP - General Internal Medicine 11/18/20 03/23/24 Rush Martin MD [address] [place] [phone] PCP - General Internal Medicine 03/24/24 documented as of this encounter Additional Source Comments The information contained in this document represents components of the legal health record. It is not the complete legal health record.[facility]
--- OUTSIDE RECORDS SUMMARY | 2025-08-06 19:13 | XMS_ITS | Clinical Summary ---
Author Organization [facility] Address Counts include 234 beds at the [facility] [address] [place] [phone] Phone Care Team Providers Care Building Drafting Officer Name Role Phone Rush Martin MD Primary Care Provider [phone] Allergies No known active allergies Medications hydroCHLOROthiaz [...] tablet Take 25 mg by mouth daily. 5 Active labetaloL (TRANDATE) 200 MG tablet Take 400 mg by mouth 2 (two) times a day. 5 Active levETIRAcetam (KEPPRA) 500 MG tablet Take 500 mg by mouth 2 (two) times a day (once in the morning and once in the afternoon). 5 Active sertraline (ZOLOFT) 25 MG tablet Take 25 mg by mouth daily. Taking 50 mg daily 5 Active lisinopril (PRINIVIL,ZESTRI L) 40 MG tablet Take 40 mg by mouth daily. Hold until 06/10/25 5 Active amLODIPine (NORVASC) 5 MG tablet Take 2.5 mg by mouth daily. 5 Active Active Problems No known active problems Encounters Date Type Department Care Team Description 07/02/2025 [facility] Visit [facility] [address] [place] [address] Donna Gonzales CCC-[employer] COMMUNICATION 07/02/2025 [facility] [address] [place] [address] Donna Gonzales [employer] TELEPHONE ENCOUNTER 07/01/2025 8:45 AM EDT Home [facility] Visit [facility] [address] [place] [address] Essie Joshi RN SN OASIS DISCHARGE NON VISIT/TELEPHONE 06/24/2025 Home [facility] Visit [facility] [address] [place] [address] Ros Marin OT OT DISCIPLINE DISCHARGE NON VISIT/TELEPHONE 06/23/2025 [facility] Visit [facility] [address] [place] [address] Claire Angela, PT TELEPHONE ENCOUNTER 06/19/2025 Home Care Visit [facility] [address] [place] [address] Renee Gonzalez, PT TELEPHONE ENCOUNTER 06/19/2025 Home Care Visit [facility] [address] [place], [place] [phone] Claire Angela, PT TELEPHONE ENCOUNTER 06/19/2025 Episode Documentation Update [facility] [address] [place] [address] Elena Kearney 06/18/2025 Home Care Visit [facility] [address] [place], [place] [phone] Claire Angela, PT TELEPHONE ENCOUNTER 06/18/2025 Home Care Visit [facility] [address] [place] [address] Ros Marin, OT TELEPHONE ENCOUNTER 06/17/2025 3:00 PM EDT Home Care Visit [facility] [address] [place], [place] [phone] Essie Joshi RN SN HOME VISIT 06/17/2025 2:00 PM EDT Home Care Visit [facility] [address] [place], [place] [phone] Ros Marin, OT OT HOME VISIT 06/17/2025 Home Care Visit [facility] [address] [place], [place] [phone] Ros Marin, OT TELEPHONE ENCOUNTER 06/15/2025 Home Care Visit [facility] [address] [place], [place] [phone] Renee Gonzalez, PT TELEPHONE ENCOUNTER 06/12/2025 11:00 AM EDT Home [facility] [address] [place] [address] Ros Marin, OT OT EVALUATION 06/12/2025 Telephone [facility] Neurology [address] [place] [address] Emili Terrazas MA 06/11/2025 Home Care Visit [facility] [address] [place] [phone] Ros Marin, OT TELEPHONE ENCOUNTER 06/10/2025 11:15 AM EDT [facility] [address] [place] [phone] Essie Joshi, RN SN OASIS START OF CARE (SOC) 06/10/2025 Plan of Care Documentation [facility] [address] [place] [phone] 06/07/2025 [facility] [address] [place] [phone] Porsha Mcgovern, OSCAR TELEPHONE ENCOUNTER 06/04/2025 Orders Only [facility] [address] [phone] Homehealth, Interface ProviderMD from Last 3 Months Immunizations Immunization Administration Dates Next Due COVID-19 (Pre-08/06) Pfizer Vaccine, mRNA, PF ,01/15/2021 Influenza Quadrivalent Preservative Free IM 05/2020 Family History Medical History Relation Comments CV [...] Date Recorded Lack of Transportation (Medical) No 07/01/2025 Lack of Transportation (Non-Medical) No 07/01/2025 Patient Unable or Declines to Respond No 07/01/2025 Education Answer Date Recorded Are you interested [...] Sign Reading Time Taken Comments Blood Pressure 120/84 06/17/2025 3:25 PM EDT Pulse 64 06/17/2025 3:25 PM EDT Temperature 36.9 C (98.4 F) 06/17/2025 3:25 PM EDT Respiratory Rate 16 06/17/2025 3:25 PM EDT Oxygen Saturation 96% 06/17/2025 3:25 PM EDT Inhaled Oxygen Concentration - - Weight 111.6 kg (246 lb) 06/10/2025 12:00 PM EDT Height 175.3 cm (5' 9 ) 06/10/2025 12:00 PM EDT Body Mass Index 36.33 06/10/2025 12:00 PM EDT Plan of Treatment Health Maintenance Due Date Last Done Comments Adult Td,Tdap Booster 1965 COLOGUARD 2010 COLONOSCOPY 2010 COLORECTAL CANCER SCREENING 2010 FIT TEST 2010 FOBT 2010 SIGMOIDOSCOPY 2010 VIRTUAL COLONOSCOPY 2010 PNEUMOCOCCAL VACCINES (50+ years) (1 of 1 - PCV) 2015 ZOSTER VACCINES (1 of 2) 2015 DEPRESSION SCREENING 07/22/2021 07/22/2020 INFLUENZA VACCINE (#1) 2025 07/22/2020 COVID-19 VACCINE (3 - season) 2025 02/05/2021, 01/15/2021 LIPID PANEL 07/22/2025 07/22/2020, 08/06/2017 CREATININE LEVEL 11/15/2025 11/15/2024, , 08/27/2020, Additional history exists POTASSIUM LEVEL 11/15/2025 11/15/2024, 11/16, 08/27/2020, Additional history exists SCREENING FOR DIABETES 11/15/2027 11/15/2024, 2016 RSV VACCINE (1 - 1-dose 75+ series) 2040 HEPATITIS C SCREENING Completed 07/22/2020 HIV ONE-TIME [...] EST) SODIUM 138 133 - 146 mmol/L [facility] CHLORIDE 102 96 - 108 mmol/L [facility] POTASSIUM 3.5 3.3 - 5.1 mmol/L [facility] CO2 23 21 - 35 mmol/L [facility] BUN 23(H) 6 - 19 mg/dL [facility] CREATININE 1.20 0.5 - 1.5 mg/dL [facility] GLUCOSE 116(H) 70 - 99 mg/dL [facility] CALCIUM 8.3(L) 8.4 - 10.3 mg/dL [facility] EGFR 70 >59 mL/min/1.7 3m2 [facility] Comment:Estimated glomerular filtration rate calculated using the CKD-EPI refit equation. ANION GAP 17 10 - 20 mmol/L [facility] Blood 11/15/2024 7:28 PM EST 11/15/2024 7:30 PM EST us Aníbal Moe MD LAB BLOOD ORDERABLES Final Result [address] [address] * Hepatitis C antibody, qualitative (07/22/2020 4:13 PM EDT) Pathologist [facility] HCV NON-REACTIV E NON-REACTI VE [facility] Blood 07/22/2020 4:13 PM EDT 07/22/2020 4:23 PM EDT us Issac Serrano MD LAB BLOOD ORDERABLES Final Re sult [address] [address] * (ABNORMAL) Lipid panel (07/22/2020 4:13 PM EDT) Pathologist [facility] HDL 48 mg/dL [facility] Comment: Interpretation <40 mg/dL: Low HDL cholesterol (major risk factor for CHD) Greater than or equal to 60 mg/dL: High HDL cholesterol ( negative risk factor for CHD) HDL - cholesterol is affected by a number of factors, e.g. smoking, excerise, hormones, sex and age. CHOLESTEROL 223 0 - 240 mg/dL [facility] TRIGLYCERIDES 129 30 - 160 mg/dL [facility] LDL 149(H) 50 - 129 mg/dL [facility] Comment: LDL levels in terms of risk for coronary heart disease: <100 mg/dL: Optimal 100-129 mg/dL: Near or above optimal 130-159 mg/dL: Borderline high 160-189 mg/dL: High >190 mg/dL: Very High CARDIAC RISK RATIO 4.6 3.4 - 5.0 C [facility] Blood 07/22/2020 4:13 PM EDT 07/22/2020 4:23 PM EDT Issac Serrano MD LAB BLOOD ORDERABLES Final sult [facility] [address] [place] [address] * Outside Glucose,Fasting (08/06/2017) [facility] Glucose, fasting - External 87 65 - 99 mg/dL Historical Provider LAB BLOOD ORDERABLES Jillian l Result from Last 3 Months or Most Recently Relevant to Health Maintenance Insurance [facility] [employer] [employer] [employer] [address] [place] [address] [employer] [facility] [employer] [facility] [employer] DIRECT [facility] [employer] [address] [place] [address] [employer] DIRECT Care Teams Building Drafting Officer Relationship Specialty Start Date End Date Rush Martin MD [address] [place] [address] PCP - General Internal Medicine 03/24/24 Additional Source Comments The information contained in this document represents components of the legal health record. It is not the complete legal health record.[facility]
== END 2025-08-06 16:22 | disposition home or self-care (01) ==
LOC: HO.HSM 15:35
PROVIDERS: PCP Internal Medicine; Visit Provider Psychiatry & Neurology Neurology
DX: D68.61 Antiphospholipid syndrome (principal); G40.909 Epilepsy, unspecified, not intractable, without status epilepticus; G37.9 Demyelinating disease of central nervous system, unspecified; G35.D Multiple sclerosis, unspecified
CPT/HCPCS: 99214

== ENCOUNTER → 2025-08-13 23:59 | Outpatient (BNV) | payer OTHER, SELFPAY ==
--- NOTE | 2025-08-19 16:21 | MHC.OFFVIS ---
Intake Visit Reasons: Remote ILR check - [employer] Allergies No Known Allergies Allergy (Verified 08/18/25 08:19) [facility] Medical History Vascular dementia Status post multiple cerebral infarctions Anticardiolipin antibody positive Seizure disorder Multiple cerebral infarctions Cognitive impairment Myocardial infarct Accelerated hypertension Left hemiparesis Pure hypercholesterolemia Acute CVA (cerebrovascular accident) Surgical History History of hernia repair History of kidney surgery Family History Mother Cancer Lung cancer Father Heart disease Social History Household Members: Spouse and Children Alcohol intake: former Patient Tobacco Use Status: Never used Tobacco Advance Directives Date on File: 06/03/25 service: Yes Current occupational status: unemployed Office Procedures Cardiac Device Check Cardiac Device Check Details: Date of service 08/13/2025; in the current monitoring period, there is no evidence of atrial fibrillation. [id number] Cardiac Interrogation, subcut cardiac rhythm monitor Procedure code (CPT) selection complete Assessment & Plan Assessment & Plan (1) Implantable loop recorder present: Code(s): Z95.818 - Presence of other cardiac implants and grafts Category: Medical (2) Embolic stroke: Code(s): I63.9 - Cerebral infarction, unspecified Category: Medical Plan x Coding Level of Care Code Procedure Only Diagnoses Implantable loop recorder present Z95.818 Embolic stroke I63.9 CPT Codes Cardiac Device Check - Cardiac Device 16: [id number] Cardiac Interrogation, subcut cardiac rhythm monitor ([id number])
== END ==
PROVIDERS: PCP Internal Medicine; Visit Provider Internal Medicine
DX: I63.9 Cerebral infarction, unspecified (principal); Z95.818 Presence of other cardiac implants and grafts
CPT/HCPCS: 93298

== ENCOUNTER 2025-08-18 08:15 | Outpatient (AMB) | payer OTHER, SELFPAY ==
[2025-08-18 08:17] VITALS: BP 128/72; PULSE 66; BMI 37.2
--- NOTE | 2025-08-18 08:17 | A.OFFVIS_ITS ---
Vital Signs 08/18/25 08:17 Height 5 ft 9 in Weight 251 lb 12.286 oz BMI 37.2 BP 128/72 Blood Pressure Location Lt brachial Position Sitting Pulse 66 Pulse Source Pulse Oximeter Intake Visit Reasons: 6m follow up Business Analytics Director Required: No Hydrant Setter: Hydrant Setter Present Allergies No Known Allergies Allergy (Verified 08/18/25 08:19) Medication List - Last Reconciled 08/18/25 by Helen Orta NP-C amlodipine 2.5 mg (1/2 x 5 mg) PO BEDTIME aspirin 81 mg PO DAILY atorvastatin (Lipitor) 80 mg PO BEDTIME chlorthalidone 25 mg PO DAILY 90 days clopidogrel 75 mg PO DAILY 30 days labetalol 400 mg (2 x 200 mg) PO BID 90 days levetiracetam 500 mg PO BID lisinopril 40 mg PO DAILY sertraline 50 mg (2 x 25 mg) PO DAILY HPI HPI 6m follow up: Details: Christiano is a 59-year-old male with past medical history of embolic stroke, hypertension who was recently admitted to [facility] for left face and neck numbness and concern for CVA. His CT scan of the head and neck and MRI showed no acute findings, multi old infarcts. He is following with Neurology and now presents to Cardiology for follow-up. Today he states that he saw the neurologist and has a new possible diagnosis of MS. He reports some decreased hand strength bilaterally. His facial numbness resolved. No cardiac symptoms or concerns. No chest discomfort, shortness of breath, heart palpitations, lightheadedness, edema. His ILR site feels fine. He ambulates with a cane. No bleeding issues reported. Compliant with meds. present. 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 Seizure disorder Multiple cerebral infarctions Cognitive impairment Myocardial infarct Accelerated hypertension Left hemiparesis Pure hypercholesterolemia Acute CVA (cerebrovascular accident) Surgical History History of hernia repair History of kidney surgery Family History Mother Cancer Lung cancer Father Heart disease Social History Household Members: Spouse and Children Alcohol intake: former Patient Tobacco Use Status: Never used Tobacco Advance Directives Date on File: 06/03/25 service: Yes Current occupational status: unemployed Review of Systems Const All systems reviewed & are unremarkable except as noted in HPI and below ENT Denies dizziness Card Denies chest pain, Denies chest pain at rest, Denies chest pain with activity, Denies rapid heart rate, Denies pedal edema, Denies edema, Denies leg edema, De nies lightheadedness, Denies palpitations, Denies dyspnea, Denies dyspnea on exertion and Denies orthopnea Resp Denies cough, Denies dyspnea and Denies dyspnea on exertion GI Denies hematochezia and Denies change in stool character Musc Reports abnormal gait, Denies limited range of motion, Denies muscle cramps, Denies muscle weakness, Denies numbness, Denies radiating pain into limb, Denies stiffness and Denies tingling Neuro Reports abnormal gait, Denies dizziness, Denies numbness and Denies tingling Endo Denies palpitations Physical Exam Vital Signs: Last Vital Signs Pulse 66 08/18/25 08:17 BP 128/72 08/18/25 08:17 BMI result Body Mass Index 37.2 Const General: cooperative, healthy appearing, comfortable and no acute distress Orientation/consciousness: patient oriented x3 Neck Neck: Yes normal visual inspection and Yes no JVD Chest Other: ILR site benign Resp Effort & Inspection: normal respiratory effort Auscultation: clear to auscultation bilaterally, no rales, no rhonchi and no wheezes Cardio Rate: regular rate Rhythm: regular rhythm Heart sounds: S1 normal heart sound present, S2 normal heart sound present, no murmurs and no rubs Neuro General: patient oriented x3 Extrem Other: nonpitting swelling in ankles, R > L General: Yes normal to inspection, No no pedal edema and No calf tenderness Psych Appearance: grossly normal Mental Status: mental status grossly normal Speech and movement: Normal speech and movement present Assessment & Plan Assessment & Plan (1) Implantable loop recorder present: Code(s): Z95.818 - Presence of other cardiac implants and grafts Category: Medical Plan: History of embolic CVAs. He has loop recorder in place to assess for presence of AFib. No atrial fibrillation seen as of this time. He is monitored remotely. Cardiology follow-up 6 months for clinical reassessment. (2) Syncope: Code(s): R55 - Syncope and collapse Category: Medical Plan: Prior Syncopal episod a few months ago that occurred in the setting of influenza, likely dehydration. Loop recorder interrogated today showing no ar rhythmia, pauses, bradycardia, AFib since time of implant. No recurrent episodes. (3) Embolic stroke: Code(s): I63.9 - Cerebral infarction, unspecified Category: Medical Plan: As above. Recent concern for possible new CVA however no acute findings seen on CT or MRI. states that he may have new diagnosis of MS and is following with Neurology. (4) Hypertension: Code(s): I10 - Essential (primary) hypertension Category: Medical Qualifiers: Hypertension type: primary hypertension Qualified Code(s): I10 - Essential (primary) hypertension Plan: Blood pressure goal less than 130/80. Well controlled at this time. Continue amlodipine, chlorthalidone, labetalol and lisinopril. Follows with Nephrology. (5) Hospital discharge follow-up: Code(s): Z09 - Encounter for follow-up examination after completed treatment for conditions other than malignant neoplasm Category: Medical Plan: [facility] discharge notes reviewed. Plan During the visit, we discussed the importance of continued monitoring for atrial fibrillation using the ILR, given its role in stroke prevention. I explained that the ILR battery is functioning well and no immediate intervention is necessary. We also reviewed the recent diagnosis of multiple sclerosis and the upcoming spinal tap for further evaluation. We emphasized the importance of maintaining cardiovascular health to prevent further strokes, given the patient's history of cerebrovascular events. Patient Instructions: - Continue using the ILR for atrial fibrillation monitoring and ensure it is functioning properly. - Maintain physical activity as tolerated - Report any new or worsening symptoms to your healthcare provider promptly. Patient was informed and verbally consented to the use of an ambient scribe for clinic note documentation during this visit. Visit time spent on chart review, interview, assessment, orders, documentation. Coding Level of Care Code Est Pt Level 4 (82319) Complex EM visit Add On G2211 Diagnoses Implantable loop recorder present Z95.818 Syncope R55 Embolic stroke I63.9 Primary hypertension I10 Hypertension type: primary hypertension Hospital discharge follow-up Z09 Time Spent (min) 28
--- OUTSIDE RECORDS SUMMARY | 2025-08-18 08:38 | XMS_ITS | Clinical Summary ---
Author Organization [facility] Address [address] [place] [address] Phone Care Team Providers Care Senior Account Director Name Role Phone Rush Martin MD Primary Care Provider [phone] Allergies No known active allergies Medications amLODIPine [...] Care Team Description 07/01/2025 Telephone Internal Medicine [address] [address] Rush Martin MD 06/23/2025 [facility] [address] [address] [place] 06/23/2025 [facility] [address] [address] [place] 06/19/2025 [facility] [address] [address] Rush Martin MD 06/12/2025 [facility] [address] [address] Rush Martin MD 06/11/2025 2:30 PM EDT Office Visit Internal [address] [address] Rush Martin MD Hospital discharge follow-up (Primary Dx); TIA (transient ischemic attack); Hypercholesterolemia; Primary hypertension 06/10/2025 [facility] [address] [address] Rush Martin MD 06/10/2025 [facility] [address] [address] Rush Martin MD from Last 3 Months [...] Done Comments Colorectal Cancer Screening: Colonoscopy 1965 Zoster Vaccines (1 of 2) 2015 Pneumococcal [...] patient's age to complete this topic Hepatitis B Vaccines Aged Out No long er eligible [...] Final Result from Last 3 Months Insurance [facility] Care Teams Senior Account Director Relationship Specialty Start Date End Date Rush Martin MD [address] [place] [address] PCP - General 12/24/23
--- OUTSIDE RECORDS SUMMARY | 2025-08-18 08:38 | XMS_ITS | Encounter Summary ---
Author Organization [facility] Address Pending sale to [facility] [address] [place] [address] Phone Care Team Providers Care Management Planner Name Role Phone Issac Serrano MD Primary Care Provider [phone] Abdirahman Calloway MD Primary Care Provider + Issac Serrano MD Primary Care Provider [phone] Rush Martin MD Primary Care Provider [phone] Encounter Details Date Type Department Care Team (Late st Contact Info) Description 08/04/2020 Procedure [facility] [address] [place] [address] Social History Tobacco Use Types Packs/Day Years [...] documented as of this encounter Care Teams Management Planner Relationship Specialty Start Date End Date Issac Serrano MD [address] [place] [address] [email or web address] PCP - General Internal Medicine 07/13/20 11/11/20 Abdirahman Calloway MD [address] [place] [address] PCP - General Family Medicine 11/12/20 11/17/20 Issac Serrano MD [address] [place] [address] [email or web address] PCP - General Internal Medicine 11/18/20 03/23/24 Rush Martin MD [address] [place] [address] PCP - General Internal Medicine 03/24/24 documented as of this encounter Additional Source Comments The information contained in this document represents components of the legal health record. It is not the complete legal health record.[facility]
--- OUTSIDE RECORDS SUMMARY | 2025-08-18 08:38 | XMS_ITS | Clinical Summary ---
Author Organization [facility] Address [facility] [address] [place] [address] Phone Care Team Providers Care Fagot Heater Helper Name Role Phone Rush Martni MD Primary Care Provider [phone] Allergies No known active allergies Medications hydroCHLOROthiaz [...] Visit [facility] [address] [place] [address] Donna Gonzales CCC-DIAMOND WHEEL EDGER CASE COMMUNICATION 07/02/2025 Home Care Visit [facility] [address] [place] [address] Donna Gonzales CCC-DIAMOND WHEEL EDGER TELEPHONE ENCOUNTER 07/01/2025 8:45 AM EDT Home Care Visit [facility] [address] [place] [address] Essie Joshi RN SN OASIS DISCHARGE NON VISIT/TELEPHONE 06/24/2025 Home Care Visit [facility] [address] [place] [address] Ros Marin OT OT DISCIPLINE DISCHARGE NON VISIT/TELEPHONE 06/23/2025 Home [facility] [address] [place] [address] Claire Angela, PT TELEPHONE ENCOUNTER 06/19/2025 Home Care Visit [facility] [address] [place] [address] Renee Gonzalez, PT TELEPHONE ENCOUNTER 06/19/2025 Home Care Visit [facility] [address] [place], [place] [phone] Claire Angela, PT TELEPHONE ENCOUNTER 06/19/2025 Episode Documentation Update [facility] [address] [place] [address] Elena Kearney 06/18/2025 Home Care Visit [facility] [address] [place], [place] [phone] Claire Angela, PT TELEPHONE ENCOUNTER 06/18/2025 Home Care Visit [facility] [address] [place] [address] Ros Marin, OT TELEPHONE ENCOUNTER 06/17/2025 3:00 PM EDT Home Care Visit [facility] [address] [place], [place] [phone] Essie Joshi RN SN HOME VISIT 06/17/2025 2:00 PM EDT Home Care Visit [facility] [address] [place], [place] [phone] Ros Marin, OT OT HOME VISIT 06/17/2025 Home Care Visit [facility] [address] [place], [place] [phone] Ros Marin, OT TELEPHONE ENCOUNTER 06/15/2025 Home Care Visit [facility] [address] [place], [place] [phone] Renee Gonzalez, PT TELEPHONE ENCOUNTER 06/12/2025 11:00 AM EDT Home [facility] [address] [place] [address] Ros Marin, OT OT EVALUATION 06/12/2025 Telephone [facility] Neurology [address] [place] [address] Emili Terrazas [place] 06/11/2025 Home Care Visit [facility] [address] [place] [phone] Ros Marin, OT TELEPHONE ENCOUNTER 06/10/2025 11:15 AM EDT [facility] [address] [place] [phone] Essie Joshi, RN SN OASIS START OF CARE (SOC) 06/10/2025 Plan of Care [facility]ation [facility] [address] [place] [phone] 06/07/2025 [facility] [address] [place] [phone] Porsha Mcgovern, OSCAR TELEPHONE ENCOUNTER 06/04/2025 Orders Only [facility] [address] [phone] Homehealth, Interface ProviderMD from Last 3 Months [...] Date/Time Associated Diagnosis Comments BASIC METABOLIC PANEL (BMP) STAT 11/15/2024 7:28 PM EST LIPID PANEL [...] EST) SODIUM 138 133 - 146 mmol/L [facility] CHLORIDE 102 96 - 108 mmol/L [facility] POTASSIUM 3.5 3.3 - 5.1 mmol/L [facility] CO2 23 21 - 35 mmol/L [facility] BUN 23(H) 6 - 19 mg/dL [facility] CREATININE 1.20 0.5 - 1.5 mg/dL [facility] GLUCOSE 116(H) 70 - 99 mg/dL [facility] CALCIUM 8.3(L) 8.4 - 10.3 mg/dL [facility] EGFR 70 >59 mL/min/1.7 3m2 [facility] Comment:Estimated glomerular filtration rate calculated using the CKD-EPI refit equation. ANION GAP 17 10 - 20 mmol/L [facility] Blood 11/15/2024 7:28 PM EST 11/15/2024 7:30 PM EST us Aníbal Moe MD LAB BLOOD BKR ORDERABLES Fi nal Result Performing Organization Address City/[facility]/ZIP Co de Phone Number [address] [address] * Hepatitis C antibody, qualitative (07/22/2020 4:13 PM EDT) Pathologist [facility] HCV NON-REACTIV E NON-REACTI VE [facility] Blood 07/22/2020 4:13 PM EDT 07/22/2020 4:23 PM EDT us Issac Serrano MD LAB BLOOD BKR ORDERABLES Jillian l Result [address] [address] * (ABNORMAL) Lipid panel (07/22/2020 4:13 PM EDT) Pathologist [facility] HDL 48 mg/dL [facility] Comment: Interpretation <40 mg/dL: Low HDL cholesterol (major risk factor for CHD) Greater than or equal to 60 mg/dL: High HDL cholesterol ( negative risk factor for CHD) HDL - cholesterol is affected by a number of factors, e.g. smoking, excerise, hormones, sex and age. CHOLESTEROL 223 0 - 240 mg/dL [facility] TRIGLYCERIDES 129 30 - 160 mg/dL [facility] LDL 149(H) 50 - 129 mg/dL [facility] Comment: LDL levels in terms of risk for coronary heart disease: <100 mg/dL: Optimal 100-129 mg/dL: Near or above optimal 130-159 mg/dL: Borderline high 160-189 mg/dL: High >190 mg/dL: Very High CARDIAC RISK RATIO 4.6 3.4 - 5.0 C [facility] Blood 07/22/2020 4:13 PM EDT 07/22/2020 4:23 PM EDT Issac Serrano MD LAB BLOOD BKR ORDERABLES Jillian l Result [facility] [address] [place] [address] * Outside Glucose,Fasting (08/06/2017) [facility] Glucose, fasting - External 87 65 - 99 mg/dL Historical Provider LAB BLOOD ORDERABLES Jillian l Result from Last 3 Months or Most Recently Relevant to Health Maintenance Insurance [facility] DIRECT [facility] [employer] DIRECT [facility] [employer] DIRECT [facility] [employer] [place] [address] [place] [address] [place] [address] [place] [address] [place] [address] [place] [address] [employer] DIRECT [facility] [employer] DIRECT [facility] [employer] DIRECT Care Teams Fagot Heater Helper Relationship Specialty Start Date End Date Rush Martin MD [address] [place] [address] [address] [place] [address] PCP - General Internal Medicine 03/24/24 Additional Source Comments The information contained in this document represents components of the legal health record. It is not the complete legal health record.[facility]
--- OUTSIDE RECORDS SUMMARY | 2025-08-18 08:38 | XMS_ITS | Encounter Summary ---
Author Organization [employer] Address [address] [facility] [address] [place] [address] Care Team Providers Care Plant Maintenance Worker Name Role Phone Kunal Alcala MD Primary Care Provider [phone] Encounter Details Date Type Department Care Team (Latest Contact Info) Description 08/17/2025 Results Follow-Up [facility] [address] [place] [address] Kunal Alcala MD [address] [place] [phone] Lipid Panel with Reflex to Direct LDL, Comprehensive Metabolic Panel, HIV-1/2 Antigen and Antibodies, Fourth Generation, with Reflexes, Additional followed-up results: 2 Social History Tobacco Use Types Packs/Day Years [...] AM EDT documented as of this encounter Plan of Treatment Upcoming Encounters Date Type Department Care Team (Late st Contact Info) Description 11/05/2025 9:20 AM EST Office Visit [facility] [address] [place] [address] Kunal Alcala MD [address] [place] [address] documented as of this encounter Visit Diagnoses Not on filedocumented in this encounter Additional Health Concerns Assessment Noted Time PHQ-9 Depression Total Score: 12 025 10:24 AM EDT documented as of this encounter Care Teams Plant Maintenance Worker Relationship Specialty Start Date End Date Kunal Alcala MD [address] [place] [address] PCP - General Internal Medicine 08/04/25 documented as of this encounter
--- OUTSIDE RECORDS SUMMARY | 2025-08-18 08:38 | XMS_ITS | Clinical Summary ---
Author Organization [employer] Address [address] [facility] 7[address] [place] [address] Care Team Providers Care Textile Conversion Manager Name Role Phone Kunal Alcala MD Primary Care Provider [phone] Allergies No known active allergies Medications amLODIPine [...] day. 0 08/04/20 25 Discontinu ed(Ineffec tive) Active Problems Problem Noted Date Diagnosed Date Coronary artery disease due to lipid rich plaque 08/11/2025 Dyslipidemia 08/11/2025 Class 2 severe obesity due t o excess calories with serious comorbidity and body mass index (BMI) of 36.0 to 36.9 in adult 08/11/2025 Multiple sclerosis 08/11/2025 History of stroke within last year 08/11/2025 CKD (chronic kidney disease) stage 2, GFR 60-89 ml/min Hypertension Encounters Date Type Department Care Team Description 08/17/2025 Results Follow-Up [address] [phone] Kunal Alcala MD Lipid Panel with Reflex to Direct LDL, Comprehensive Metabolic Panel, HIV-1/2 Antigen and Antibodies, Fourth Generation, with Reflexes, Additional followed-up results: 2 08/11/2025 Orders Only [address] [phone] Kunal Alcala MD Class 2 severe obesity due to excess calories with serious comorbidity and body mass index (BMI) of 36.0 to 36.9 in adult (Primary Dx); Dyslipidemia; Coronary artery disease due to lipid rich plaque; CKD (chronic kidney disease) stage 2, GFR 60-89 ml/min; Resistant hypertension; Multiple sclerosis; History of stroke within last year 08/11/[address] [phone] Kunal Alcala MD 08/04/2025 10:00 AM EDT Office Visit [address] [phone] Kunal Alcala MD Encounter for immunization (Primary [...] Description 11/05/2025 9:20 AM EST Office Visit [facility] [address] [place] [phone] Kunal Alcala MD [address] [place] [address] Health Maintenance Due Date Last Done Comments CT Colonography 1965 Colonoscopy 1965 Colorectal Cancer Screening 1965 FIT DNA/Cologuard 1965 FIT 1965 FOBT 1965 Sigmoidoscopy 1965 Disability Screening 1965 DTaP/Tdap/Td Vaccines (1 - Tdap) 1984 Pneumococcal Vaccine: 50+ Years (1 of 2 - PCV) 1984 Zoster Vaccines (1 of 2) 2015 COVID-19 Vaccine (3 - 2024-2 6 season) 2025 02/05/2021, 01/15/2021 RSV Patients and Patients Aged 60 years or older (1 - Risk 60-74 years 1-dose series) 2025 Depression Monitoring 02/02/2026 08/04/2025 , 08/04/2025 Alcohol/Substance Use Screening 08/04/2026 08/04/2025 SDOH Screening 08/04/2026 08/04/2025 Tobacco Screening 08/04/2026 08/04/2025 Lipid Panel 08/13/2030 08/13/2025 Influenza Vaccine Completed 08/04/2025, 07/22/2020 HIV Screening Completed 08/13/2025 Hepatitis C Screening Completed 08/13/2025 HIB Vaccines Aged Out No longer eligi [...] Procedure Name Priority Date/Time Associated Diagnosis Comments HEMOGLOBIN A1C Routine 08/13/2025 8:09 AM EDT Screening for diabetes mellitus HEPATITIS C AB W/REFL TO HCV RNA, QN, PCR Routine 08/13/2025 8:09 AM EDT Screen for STD (sexually transmitted disease) HIV 1/2 ANTIGEN/ANTIBODY, FOURTH GENERATION W/RFL Routine 08/13/2025 8:09 AM EDT Screen for STD (sexually transmitted disease) COMPREHENSIVE METABOLIC PANEL Routine 08/13/2025 8:09 AM EDT Screening for diabetes mellitus Dyslipidemia LIPID PANEL WITH REFLEX TO DIRECT LDL Routine 08/13/2025 8:09 AM EDT Dyslipidemia from Last 3 Months Results * Lipid Panel with Reflex to Direct LDL (08/13/2025 8:09 AM EDT) Cholesterol, Total 120 <200 mg/dL [facility] HDL Cholesterol 45 > OR = 40 mg/dL [facility] Triglycerides 48 <150 mg/dL [facility] LDL Cholesterol 61 mg/dL [facility] [place] [facility] Comment: Reference range: <100 Desirable range <100 mg/dL for primary prevention; <70 mg/dL for patients with CHD or diabetic patients with > or = 2 CHD risk factors. LDL-C is now calculated using the Avel calculation, which is a validated novel method providing better accuracy than the Friedewald equation in the estimation of LDL-C. Sukumar FELIX et al. ASHELY. 2013;310(19): 5410-8599 (http://education.Bedbathmore.com/faq/FLP626) Chol/HDLC Ratio 2.7 <5.0 (calc) [facility] Non-HDL Cholesterol 75 <130 mg/dL [facility] Comment: For patients with diabetes plus 1 major ASCVD risk factor, treating to a non-HDL-C goal of <100 mg/dL (LDL-C of <70 mg/dL) is considered a therapeutic option. Blood 08/13/2025 8:09 AM EDT 08/13/2025 8:10 AM EDT Narrative [facility] - 08/14/2025 8:44 AM EDT FASTING:YES FASTING: YES Kunal Alcala MD LAB BLOOD ORDERABLES Final Res ult Performing Organization Address [facility] Co de Phone Number [address], [place] [address] [facility] [employer] [address] * Hepatitis C Antibody with Reflex to HCV, RNA, Quantitative, Real-Time PCR (08/13/2025 8:09 AM EDT) Hepatitis C Antibody NON-REACT DENNIS NON-REACT DENNIS [facility] Comment: HCV antibody was non-reactive. There is no laboratory evidence of HCV infection. In most cases, no further action is required. However, if recent HCV exposure is suspected, a test for HCV RNA (test code 23095) is suggested. For additional information please refer to http://education.SendHub/faq/OIA65b5 (This link is being provided for informational/ educational purposes only.) Blood Venous blood specimen / Unknown 08/13/2025 8:09 AM EDT 08/13/2025 8:10 AM EDT Narrative [facility] - 08/14/2025 8:44 AM EDT FASTING:YES FASTING: YES Kunal Alcala MD LAB BLOOD ORDERABLES Final Res ult Performing Organization Address [facility] Co de Phone Number [address], [place] [address] [facility] [email or web address] [address] [place] [address] * HIV-1/2 Antigen and Antibodies, Fourth Generation, with Reflexes (08/13/2025 8:09 AM EDT) Pathologist [facility] HIV Final Interpretation HIV NEGATIVE [facility] Comment: HIV-1 antigen and HIV-1/HIV-2 antibodies were not detected. There is no laboratory evidence of HIV infection. HIV Antigen/Antibody, 4th Generation NON-REACTIV E NON-REAC TIVE [facility] Blood Venous blood specimen / Unknown 08/13/2025 8:09 AM EDT 08/13/2025 8:10 AM EDT Narrative [facility] - 08/14/2025 8:44 AM EDT FASTING:YES FASTING: YES us Kunal Alcala MD LAB BLOOD ORDERABLES Final Res ult [facility] [address], [place] [address] [facility] [address] [place] [address] * Hemoglobin A1c (08/13/2025 8:09 AM EDT) Pathologist [facility] Hemoglobin A1c 5.4 <5.7 % [email or web address] Comment: For the purpose of screening for the presence of diabetes: <5.7% Consistent with the absence of diabetes 5.7-6.4% Consistent with increased risk for diabetes (prediabetes) > or =6.5% Consistent with diabetes This assay result is consistent with a decreased risk of diabetes. Currently, no consensus exists regarding use of hemoglobin A1c for diagnosis of diabetes in children. According to [place] Diabetes Association (ADA) guidelines, hemoglobin A1c <7.0% represents optimal control in non- diabetic patients. Different metrics may apply to specific patient populations. Standards of Medical Care in Diabetes(ADA). Blood Venous blood specimen / Unknown 08/13/2025 8:09 AM EDT 08/13/2025 8:10 AM EDT Narrative [facility] - 08/14/2025 8:44 AM EDT FASTING:YES FASTING: YES us Kunal Alcala MD LAB BLOOD ORDERABLES Final Res ult [facility] [address], [place] [address] [facility] [address] [place] [address] * Comprehensive Metabolic Panel (08/13/2025 8:09 AM EDT) Glucose 89 65 - 99 mg/dL [facility] Comment: Fasting reference interval Urea Nitrogen (BUN) 18 7 - 25 mg/dL [facility] Creatinine, Serum 1.17 0.70 - 1.35 mg/dL [facility] eGFR 71 > OR = 60 mL/min/1. 73m2 [facility] BUN/Creatinine Ratio SEE NOTE: 6 - 22 (calc) [facility] Comment: Not Reported: BUN and Creatinine are within reference range. Sodium 140 135 - 146 mmol/L [facility] Potassium 3.8 3.5 - 5.3 mmol/L [facility] Chloride 101 98 - 110 mmol/L [facility] Carbon Dioxide 28 20 - 32 mmol/L [facility] [place] [facility] Calcium 9.3 8.6 - 10.3 mg/dL [facility] Protein, Total 6.3 6.1 - 8.1 g/dL [facility] Albumin 4.3 3.6 - 5.1 g/dL [facility] Globulin 2.0 1.9 - 3.7 g/dL (calc) [facility] Albumin/Globuli n Ratio 2.2 1.0 - 2.5 (calc) [facility] Bilirubin, Total 0.7 0.2 - 1.2 mg/dL [facility] Alkaline Phosphatase 114 35 - 144 U/L [facility] AST 27 10 - 35 U/L [facility] ALT 44 9 - 46 U/L [facility] Blood Venous blood specimen / Unknown 08/13/2025 8:09 AM EDT 08/13/2025 8:10 AM EDT Narrative [facility] - 08/14/2025 8:44 AM EDT FASTING:YES FASTING: YES us Kunal Alcala MD LAB BLOOD ORDERABLES Final Res ult [facility] [address], [place] [address] [facility] [address] [place] [address] from Last 3 Months Insurance [facility]LY [facility] Care Teams Textile Conversion Manager Relationship Specialty Start Date End Date Kunal Alcala MD [address] [place] [phone] PCP - General Internal Medicine 08/04/25
--- OUTSIDE RECORDS SUMMARY | 2025-08-18 08:38 | XMS_ITS | Encounter Summary ---
Author Organization [employer] Address [address] [place] [address] Care Team Providers Care Lift Operator Name Role Phone Kunal Alcala MD Primary Care Provider Encounter Details Date Type Department Care Team (Late st Contact Info) Description 08/11/[address] [phone] Kunal Alcala MD [address] [place] [address] Social History Tobacco Use Types Packs/Day Years [...] AM EDT documented as of this encounter Miscellaneous Notes * Telephone Encounter - Una Wong - 08/11/2025 9:55 AM EDT Pt's spouse stopped by [facility] site- presented [facility]- OV report from pt's visit 08/06/25 where the updateddiagnosis was Multiple Sclerosis. Please see media for report. Pt spouse just wanted to update provider. documented in this encounter Plan of Treatment Upcoming Encounters Date Type Department Care Team (Late st Contact Info) Description 11/05/2025 9:20 AM EST Office Visit [address] [phone] Kunal Alcala MD [address] [place] [address] documented as of this encounter Visit Diagnoses Not on filedocumented in this encounter Additional Health Concerns Assessment Noted Time PHQ-9 Depression Total Score: 12 025 10:24 AM EDT documented as of this encounter Care Teams Lift Operator Relationship Specialty Start Date End Date Kunal Alcala MD [address] [place] [phone] PCP - General Internal Medicine 08/04/25 documented as of this encounter
== END 2025-08-18 08:36 | disposition home or self-care (01) ==
LOC: HO.HCS 08:15
PROVIDERS: PCP Internal Medicine; Visit Provider Nurse Practitioner Family
DX: Z95.818 Presence of other cardiac implants and grafts (principal); R55 Syncope and collapse; I63.9 Cerebral infarction, unspecified; I10 Essential (primary) hypertension; Z09 Encounter for follow-up examination after completed treatment for conditions other than malignant neoplasm
CPT/HCPCS: 99214

== ENCOUNTER → 2025-08-18 08:15 | Outpatient (BNVA) | payer OTHER, SELFPAY | PROVIDERS: PCP Internal Medicine; Visit Provider Nurse Practitioner Family | DX: I10 Essential (primary) hypertension (principal); R55 Syncope and collapse; I63.9 Cerebral infarction, unspecified; Z95.818 Presence of other cardiac implants and grafts; Z09 Encounter for follow-up examination after completed treatment for conditions other than malignant neoplasm | CPT/HCPCS: 99212 ==

== ENCOUNTER → 2025-08-26 09:08 | Day surgery (SDC) | payer OTHER, SELFPAY ==
[2025-08-26 09:44] VITALS: BMI 37.1
[2025-08-26 09:59] LABS: MANUAL DIFF FLAG NO
[2025-08-26 10:01] LABS: Hematocrit 40.2 % (42.0-52.0); Hemoglobin 14.0 g/dl (14.0-18.0); Imm Gran Abs Auto 0.06 X10*3/uL (0.00-0.03); Imm Gran Pct Auto 0.6 % (0.0-0.4); Lymphocytes Absolute Auto 2.1 X10*3/uL (1.2-4.9); Mean Corpuscular HGB Conc 34.8 g/dl (31.0-36.0); Mean Corpuscular Hemoglobin 31.7 pg (27.0-33.0); Mean Corpuscular Volume 91.2 fL (80.0-98.0); NRBC Abs Auto 0.000 X10*3/uL (0.0-0.012); NRBC Pct Auto 0.0 /100WBC (0.0-0.2); Platelet Count 386 X10*3/uL (160-400); Red Blood Count 4.41 X10*6/uL (4.60-5.80); White Blood Count 10.6 X10*3/uL (4.8-10.8)
[2025-08-26 10:02] VITALS: BP 111/74; PULSE 64; RESP 16; TEMP 36.6; O2SAT 97
[2025-08-26 10:10] LABS: INTERNATIONAL NORM RATIO 1.1 (0.9-1.1); Prothrombin Time 13.3 SEC (11.2-13.5)
[2025-08-26 10:12] LABS: Partial Thromboplastin Time 32.8 SEC (26.7-34.1)
[2025-08-26 10:22] LABS: Anion Gap 12 (12-20); Blood Urea Nitrogen 14 mg/dL (9-16); Calcium 10.0 mg/dL (8.4-10.2); Carbon Dioxide 27 mmol/L (22-29); Chloride 104 mmol/L (96-108); Creatinine Clr Calc Pharmacy 86.4; Estimated Glomerular Filt Rate > 60; Potassium 3.3 mmol/L (3.3-5.1); Sodium 140 mmol/L (135-145)
--- NOTE | 2025-08-26 11:40 | PC.NURSE ---
patietn procedure canceled as per team due to thinners on board
== END ==
PROVIDERS: Radiology Diagnostic Radiology; PCP Internal Medicine; Visit Provider Psychiatry & Neurology Neurology
DX: G37.9 Demyelinating disease of central nervous system, unspecified (principal); Z53.8 Procedure and treatment not carried out for other reasons
CPT/HCPCS: 36415; 80048; 85025; 85610; 85730; J2003; Q9967

== ENCOUNTER 2025-08-31 09:05 | Day surgery (SDC) | payer OTHER, SELFPAY ==
--- OUTSIDE RECORDS SUMMARY | 2025-08-26 16:44 | XMS_ITS | Clinical Summary ---
Author Organization [facility] Address formerly [facility] [email or web address] [facility] [address] [place] [address] Phone Care Team Providers Care Nursing Program Director Name Role Phone Rush Martin MD Primary Care Provider [phone] Allergies No known active allergies Medications hydroCHLOROthiaz [...] Care Visit [facility] [address] [place] [address] Donna Gonzales CCC-OB TECH CASE COMMUNICATION 07/02/2025 Home [facility] Visit [facility] [address] [place] [address] Donna Gonzales CCC-OB TECH TELEPHONE ENCOUNTER 07/01/2025 8:45 AM EDT Home Care Visit [facility] [address] [place] [address] Essie Joshi RN SN OASIS DISCHARGE NON VISIT/TELEPHONE 06/24/2025 Home [facility] Visit [facility] [address] [place] [address] Ros Marin OT OT DISCIPLINE DISCHARGE NON VISIT/TELEPHONE 06/23/2025 Home [facility] Visit [facility] [address] [place] [address] Claire Angela, PT TELEPHONE ENCOUNTER 06/19/2025 Home Care Visit [facility] [address] [place] [address] Renee Gonzalez, PT TELEPHONE ENCOUNTER 06/19/2025 Home Care Visit [facility] [address] [place], [place] [phone] Claire Angela, PT TELEPHONE ENCOUNTER 06/19/2025 Episode Documentation Update [facility] [address] [place] [address] Elena Kearney 06/18/2025 Home Care Visit [facility] [address] [place], [place] [phone] Claire Angela, PT TELEPHONE ENCOUNTER 06/18/2025 Home Care Visit [facility] [address] [place] [address] Ros Marin, OT TELEPHONE ENCOUNTER 06/17/2025 3:00 PM EDT Home Care Visit [facility] [address] [place], [place] [phone] Essie Joshi RN SN HOME VISIT 06/17/2025 2:00 PM EDT Home Care Visit [facility] [address] [place], [place] [phone] Ros Marin, OT OT HOME VISIT 06/17/2025 Home Care Visit [facility] [address] [place], [place] [phone] Ros Marin, OT TELEPHONE ENCOUNTER 06/15/2025 Home Care Visit [facility] [address] [place], [place] [phone] Renee Gonzalez, PT TELEPHONE ENCOUNTER 06/12/2025 11:00 AM EDT Home Care [facility] [address] [place] [address] Ros Marin, OT OT EVALUATION 06/12/2025 Telephone [facility] [address] [place] [address] Emili Terrazas [place] 06/11/2025 Home Care Visit [facility] [address] [place] [phone] Ros Marin, OT TELEPHONE ENCOUNTER 06/10/2025 11:15 AM EDT [facility] [address] [place] [phone] Essie Joshi, RN SN OASIS START OF CARE (SOC) 06/10/2025 Plan of Care Documentation [facility] [address] [place] [phone] 06/07/2025 [facility] [address] [place] [phone] Porsha Mcgovern, OSCAR TELEPHONE ENCOUNTER 06/04/2025 Orders Only [facility] [address] [phone] Homehealth, Interface ProviderMD from Last 3 Months [...] patient's age to complete this topic IPV VACCINES Aged Out No longer eligi ble [...] EST) SODIUM 138 133 - 146 mmol/L [facility] CHLORIDE 102 96 - 108 mmol/L [facility] POTASSIUM 3.5 3.3 - 5.1 mmol/L [facility] CO2 23 21 - 35 mmol/L [facility] BUN 23(H) 6 - 19 mg/dL [facility] CREATININE 1.20 0.5 - 1.5 mg/dL [facility] GLUCOSE 116(H) 70 - 99 mg/dL [facility] CALCIUM 8.3(L) 8.4 - 10.3 mg/dL [facility] EGFR 70 >59 mL/min/1.7 3m2 [facility] Comment:Estimated glomerular filtration rate calculated using the CKD-EPI refit equation. ANION GAP 17 10 - 20 mmol/L [facility] Blood 11/15/2024 7:28 PM EST 11/15/2024 7:30 PM EST us Aníbal Moe MD LAB BLOOD BKR ORDERABLES Fi nal Result Performing Organization Address [facility]/ZIP Co de Phone Number [address] [address] * Hepatitis C antibody, qualitative (07/22/2020 4:13 PM EDT) HCV NON-REACTIV E NON-REACTI VE [facility] Blood 07/22/2020 4:13 PM EDT 07/22/2020 4:23 PM EDT us Issac Serrano MD LAB BLOOD BKR ORDERABLES Jillian l Result Performing Organization Address City/[facility]/ZIP Co de Phone Number [address] [address] * (ABNORMAL) Lipid panel (07/22/2020 4:13 PM EDT) HDL 48 mg/dL [facility] Comment: Interpretation <40 mg/dL: Low HDL cholesterol (major risk factor for CHD) Greater than or equal to 60 mg/dL: High HDL cholesterol ( negative risk factor for CHD) HDL - cholesterol is affected by a number of factors, e.g. smoking, excerise, hormones, sex and age. CHOLESTEROL 223 0 - 240 mg/dL [facility] TRIGLYCERIDES 129 30 - 160 mg/dL [facility] LDL 149(H) 50 - 129 mg/dL [facility] Comment: LDL levels in terms of risk for coronary heart disease: <100 mg/dL: Optimal 100-129 mg/dL: Near or above optimal 130-159 mg/dL: Borderline high 160-189 mg/dL: High >190 mg/dL: Very High CARDIAC RISK RATIO 4.6 3.4 - 5.0 C [facility] Blood 07/22/2020 4:13 PM EDT 07/22/2020 4:23 PM EDT us Issac Serrano MD LAB BLOOD BKR ORDERABLES Jillian l Result [facility] [address] [place] [address] * Outside Glucose,Fasting (08/06/2017) Glucose, fasting - External 87 65 - 99 mg/dL us Historical Provider LAB BLOOD ORDERABLES Jillian l Result from Last 3 Months or Most Recently Relevant to Health Maintenance Insurance [facility] [place] [address] [place] [address] [place] [address] [facility] [facility] [employer] [facility] [employer] Care Teams Nursing Program Director Relationship Specialty Start Date End Date Rush Martin MD [address] [place] [phone] PCP - General Internal Medicine 03/24/24 Additional Source Comments The information contained in this document represents components of the legal health record. It is not the complete legal health record.[facility]
--- OUTSIDE RECORDS SUMMARY | 2025-08-26 16:44 | XMS_ITS | Clinical Summary ---
Author Organization [employer] Address [address] [facility] 7t [place] [address] Care Team Providers Care Motel Operator Name Role Phone Kunal Alcala MD Primary Care Provider [phone] Allergies No known active allergies Medications amLODIPine [...] Department Care Team Description 08/17/2025 Results Follow-Up [address] [phone] Kunal Alcala MD Lipid Panel with Reflex to Direct LDL, Comprehensive Metabolic Panel, HIV-1/2 Antigen and Antibodies, Fourth Generation, with Reflexes, Additional followed-up results: 2 08/11/2025 Orders Only [address] [address] Kunal Alcala MD Class 2 severe obesity due to excess calories with serious comorbidity and body mass index (BMI) of 36.0 to 36.9 in adult (Primary Dx); Dyslipidemia; Coronary artery disease due to lipid rich plaque; CKD (chronic kidney disease) stage 2, GFR 60-89 ml/min; Resistant hypertension; Multiple sclerosis; History of stroke within last year 08/11/[address] [phone] Kunal Alcala MD 08/04/2025 10:00 AM EDT Office Visit [address] [address] Kunal Alcala MD Encounter for [...] Description 11/05/2025 9:20 AM EST Office Visit [facility] [address] [place] [phone] Kunal Alcala MD [address] [place] [address] Health Maintenance Due Date Last Done Comments [...] AM EDT) Cholesterol, Total 120 <200 mg/dL [facility] [place] [facility] HDL Cholesterol 45 > OR = 40 mg/dL [facility] [place] [facility] Triglycerides 48 <150 mg/dL [facility] [place] [facility] LDL Cholesterol 61 mg/dL [facility] [place] [facility] Comment: Reference range: <100 Desirable range <100 mg/dL for primary prevention; <70 mg/dL for patients with CHD or diabetic patients with > or = 2 CHD risk factors. LDL-C is now calculated using the Avel calculation, which is a validated novel method providing better accuracy than the Friedewald equation in the estimation of LDL-C. Sukumar FELIX et al. ASHELY. 2013;310(19): 5566-4351 (http://education.Solafeet/faq/INB248) Chol/HDLC Ratio 2.7 <5.0 (calc) [facility] [place] [facility] Non-HDL Cholesterol 75 <130 mg/dL [facility] [place] [facility] Comment: For patients with diabetes plus 1 major ASCVD risk factor, treating to a non-HDL-C goal of <100 mg/dL (LDL-C of <70 mg/dL) is considered a therapeutic option. Blood 08/13/2025 8:09 AM EDT 08/13/2025 8:10 AM EDT Narrative [facility] - 08/14/2025 8:44 AM EDT FASTING:YES FASTING: YES Kunal Alcala MD LAB BLOOD ORDERABLES Final Res ult Performing Organization Address [facility] Co de Phone Number [address], [place] [address] [facility] [place] [facility] [employer] [address] * Hepatitis C Antibody with Reflex to HCV, RNA, Quantitative, Real-Time PCR (08/13/2025 8:09 AM EDT) Hepatitis C Antibody NON-REACT DENNIS NON-REACT DENNIS [facility] [place] [facility] Comment: HCV antibody was non-reactive. There is no laboratory evidence of HCV infection. In most cases, no further action is required. However, if recent HCV exposure is suspected, a test for HCV RNA (test code 47630) is suggested. For additional information please refer to http://education.Sprout Social/faq/XWQ40z6 (This link is being provided for informational/ educational purposes only.) Blood Venous blood specimen / Unknown 08/13/2025 8:09 AM EDT 08/13/2025 8:10 AM EDT Narrative [facility] - 08/14/2025 8:44 AM EDT FASTING:YES FASTING: YES Kunal Alcala MD LAB BLOOD ORDERABLES Final Res ult Performing Organization Address [facility] Co de Phone Number [address], [place] [address] [facility] [place] [facility] [address] [place] [address] * HIV-1/2 Antigen and Antibodies, Fourth Generation, with Reflexes (08/13/2025 8:09 AM EDT) Pathologist [facility] HIV Final Interpretation HIV NEGATIVE [facility] [place] [facility] Comment: HIV-1 antigen and HIV-1/HIV-2 antibodies were not detected. There is no laboratory evidence of HIV infection. HIV Antigen/Antibody, 4th Generation NON-REACTIV E NON-REAC TIVE [facility] [place] [facility] Blood Venous blood specimen / Unknown 08/13/2025 8:09 AM EDT 08/13/2025 8:10 AM EDT Narrative [facility] - 08/14/2025 8:44 AM EDT FASTING:YES FASTING: YES us Kunal Alcala MD LAB BLOOD ORDERABLES Final Res ult [facility] [address], [place] [address] [facility] [address] [place] [address] * Hemoglobin A1c (08/13/2025 8:09 AM EDT) Pathologist [facility] Hemoglobin A1c 5.4 <5.7 % [facility] [place] [facility] Comment: For the purpose of screening for the presence of diabetes: <5.7% Consistent with the absence of diabetes 5.7-6.4% Consistent with increased risk for diabetes (prediabetes) > or =6.5% Consistent with diabetes This assay result is consistent with a decreased risk of diabetes. Currently, no consensus exists regarding use of hemoglobin A1c for diagnosis of diabetes in children. According to [place] Diabetes Association (ADA) guidelines, hemoglobin A1c <7.0% [...] BLOOD ORDERABLES Final Res ult [facility] [address], [place] [address] [facility] [place] [facility] [address] [place] [address] * Comprehensive Metabolic Panel (08/13/2025 8:09 AM EDT) Glucose 89 65 - 99 mg/dL [facility] [place] [facility] Comment: Fasting reference interval Urea Nitrogen (BUN) 18 7 - 25 mg/dL [facility] [place] [facility] Creatinine, Serum 1.17 0.70 - 1.35 mg/dL [facility] [place] [facility] eGFR 71 > OR = 60 mL/min/1. 73m2 [facility] [place] [facility] BUN/Creatinine Ratio SEE NOTE: 6 - 22 (calc) [facility] [place] [facility] Comment: Not Reported: BUN and Creatinine are within reference range. Sodium 140 135 - 146 mmol/L [facility] Potassium 3.8 3.5 - 5.3 mmol/L [facility] [place] [facility] Chloride 101 98 - 110 mmol/L [facility] [place] [facility] Carbon Dioxide 28 20 - 32 mmol/L [facility] [place] [facility] Calcium 9.3 8.6 - 10.3 mg/dL [facility] [place] [facility] Protein, Total 6.3 6.1 - 8.1 g/dL [facility] Albumin 4.3 3.6 - 5.1 g/dL [facility] [place] [facility] Globulin 2.0 1.9 - 3.7 g/dL (calc) [facility] [place] [facility] Albumin/Globuli n Ratio 2.2 1.0 - 2.5 (calc) [facility] [place] [facility] Bilirubin, Total 0.7 0.2 - 1.2 mg/dL [facility] [place] [facility] Alkaline Phosphatase 114 35 - 144 U/L [facility] [place] [facility] AST 27 10 - 35 U/L [facility] ALT 44 9 - 46 U/L [facility] [place] [facility] Blood Venous blood specimen / Unknown 08/13/2025 8:09 AM EDT 08/13/2025 8:10 AM EDT Narrative [facility] - 08/14/2025 8:44 AM EDT FASTING:YES FASTING: YES us Kunal Alcala MD LAB BLOOD ORDERABLES Final Res ult [facility] [address], [place] [address] [facility] [place] [facility] [address] [place] [address] from Last 3 Months Insurance [facility] Care Teams Motel Operator Relationship Specialty Start Date End Date Kunal Alcala MD [address] [place] [address] PCP - General Internal Medicine 08/04/25
--- OUTSIDE RECORDS SUMMARY | 2025-08-26 16:44 | XMS_ITS | Encounter Summary ---
Author Organization [facility] Address [facility] [address] [place] [address] Phone Care Team Providers Care Carbon Dioxide Operator Name Role Phone Issac Serrano MD Primary Care Provider [phone] Abdirahman Calloway MD Primary Care Provider + Issac Serrano MD Primary Care Provider [phone] Rush Martin MD Primary Care Provider [phone] Encounter Details Date Type Department Care Team (Late st Contact Info) Description 08/04/2020 Procedure [facility] [address] [place] [address] Social History Tobacco Use Types Packs/Day Years [...] documented as of this encounter Care Teams Carbon Dioxide Operator Relationship Specialty Start Date End Date Issac Serrano MD [address] [place] [address] [email or web address] PCP - General Internal Medicine 07/13/20 11/11/20 Abdirahman Calloway MD [address] [place] [address] PCP - General Family Medicine 11/12/20 11/17/20 Issac Serrano MD [address] [place] [address] [email or web address] PCP - General Internal Medicine 11/18/20 03/23/24 Rush Martin MD [address] [place] [address] PCP - General Internal Medicine 03/24/24 documented as of this encounter Additional Source Comments The information contained in this document represents components of the legal health record. It is not the complete legal health record.[facility]
--- OUTSIDE RECORDS SUMMARY | 2025-08-26 16:44 | XMS_ITS | Clinical Summary ---
Author Organization [facility] Address [address] [place] [address] Care Team Providers Care Ekg/Ecg Technician Name Role Phone Rush Martin MD Primary [...] Health Maintenance Due Date Last Done Comments Depression Screening 1977 Preventative Health Evaluation 1983 DTap / Tdap / Td (1 - Tdap) 1984 Colon Cancer Screening (Colonoscopy) 2010 Shingrix-Zoster Vaccine (1 o f 2) 2015 COVID-19 Vaccine (3 2024-2 6 season) 2025 02/05/2021, 01/15/2021 Influenza Vaccine (#1) 2025 3, 07/22/2020, 09/29/2016 RSV Adult > 60+ Yrs or (1 - 1-dose 75+ series) 2040 Pneumococcal Vaccine Aged Out 09/29/2016 No long er eligible based on patient's age to complete this topic Hepatitis C Screening Completed 07/22/2020 Hepatitis B Vaccines Aged Out No long er eligible based on patient's age to complete this topic RSV Ped < 20 months Aged Out No longe r eligible based on patient's age to complete this topic Care Teams Ekg/Ecg Technician Relationship Specialty Start Date End Date Rush Martin MD PCP - General Internal Medicine 12/24/23
--- OUTSIDE RECORDS SUMMARY | 2025-08-26 16:44 | XMS_ITS | Encounter Summary ---
Author Organization [employer] Address [address] [facility] 7t [place] [address] Care Team Providers Care Employee Relation Manager Name Role Phone Kunal Alcala MD Primary Care Provider [phone] Encounter Details Date Type Department Care Team (Latest Contact Info) Description 08/17/2025 Results Follow-Up [facility] [address] [place] [address] Kunal Alcala MD [address] [place] [phone] Lipid Panel with Reflex to Direct [...] Description 11/05/2025 9:20 AM EST Office Visit [facility] [address] [place] [address] Kunal Alcala MD [address] [place] [address] documented as of this encounter Visit Diagnoses Not on filedocumented in this encounter Additional Health Concerns Assessment Noted Time PHQ-9 Depression Total Score: 12 025 10:24 AM EDT documented as of this encounter Care Teams Employee Relation Manager Relationship Specialty Start Date End Date Kunal Alcala MD [address] [place] [address] PCP - General Internal Medicine 08/04/25 documented as of this encounter
--- OUTSIDE RECORDS SUMMARY | 2025-08-26 16:44 | XMS_ITS | Clinical Summary ---
Author Organization [facility] Address [address] [place] [address] Phone Care Team Providers Care Edgerman Name Role Phone Rush Martin MD Primary Care Provider [phone] Allergies No known active allergies Medications amLODIPine [...] Care Team Description 07/01/2025 Telephone Internal Medicine [address] [address] Rush Martin MD 06/23/2025 [facility] [address] [address] [place] 06/23/2025 [facility] [address] [address] [place] 06/19/2025 [facility] [address] [address] Rush Martin MD 06/12/2025 [facility] [address] [address] Rush Martin MD 06/11/2025 2:30 PM EDT Office Visit Internal [address] [address] Rush Martin MD Hospital discharge follow-up (Primary Dx); TIA (transient ischemic attack); Hypercholesterolemia; Primary hypertension 06/10/2025 [facility] [address] [address] Rush Martin MD 06/10/2025 [facility] [address] [address] Rush Martin MD from Last 3 Months [...] Final Result from Last 3 Months Insurance [facility] Care Teams Edgerman Relationship Specialty Start Date End Date Rush Martin MD [address] [place] [address] PCP - General 12/24/23
--- NOTE | ~2025-08-31 | FL_ITS ---
EXAMINATION: XR LUMBAR PUNCTURE CLINICAL INFORMATION: G37.9 - Demyelinating disease of central nervous system, unspecified COMPARISON: None available. TECHNIQUE: Informed consent was obtained from the patient. Timeout was performed. Using fluoroscopic guidance, the left L2-3 interlaminar space was identified, marked, and the skin prepped and draped in sterile fashion. Skin and subcutaneous tissues were anesthetized with 1% lidocaine. Subsequently, a 20-gauge Quincke spinal needle was advanced into the thecal sac, and clear CSF was noted at the needle hub. Approximately 16.5 mL of clear CSF was obtained passively, and sent for laboratory analysis. The patient tolerated the procedure well. There were no immediate complications. 1 fluoroscopic spot image obtained. FLUOROSCOPY TIME: 16 seconds DOSE AREA PRODUCT: 379 uGy-m2 (microgray-meter squared) FL/FL guided lumbar puncture LP IMPRESSION: 1. Successful fluoroscopic guided L2-3 interlaminar lumbar puncture. Collection of 16.5 mL of clear CSF. Electronically signed by: Buddy Castanon MD 08/31/2025 12:44 PM [facility]
[2025-08-31 09:37] VITALS: BMI 36.5
[2025-08-31 09:49] VITALS: BP 112/74; PULSE 65; RESP 16; TEMP 36.3; O2SAT 96
[2025-08-31 11:45] VITALS: BP 108/64; PULSE 57; RESP 16; TEMP 36.6; O2SAT 97
[2025-08-31 12:00] VITALS: BP 107/64; PULSE 56; RESP 16; O2SAT 96
[2025-08-31 12:15] VITALS: BP 112/65; PULSE 59; RESP 16; O2SAT 95
[2025-08-31 12:30] VITALS: BP 119/75; PULSE 60; RESP 16; TEMP 36.3; O2SAT 98
[2025-08-31 13:17] LABS: Lymphocytes CSF 50 %; Red Blood Cell CSF 0 MM*3; White Blood Cell CSF 1 MM*3
== END 2025-08-31 12:45 | disposition home or self-care (01) ==
PROVIDERS: Radiology Diagnostic Radiology; PCP Internal Medicine; Visit Provider Psychiatry & Neurology Neurology
PROC: 009U3ZZ Drainage of Spinal Canal, Percutaneous Approach (ICD-10-PCS; CPT 62270; principal; 2025-08-31 11:00)
DX: G37.9 Demyelinating disease of central nervous system, unspecified (principal); G40.909 Epilepsy, unspecified, not intractable, without status epilepticus; I25.10 Atherosclerotic heart disease of native coronary artery without angina pectoris; I25.2 Old myocardial infarction; I69.354 Hemiplegia and hemiparesis following cerebral infarction affecting left non-dominant side; I69.319 Unspecified symptoms and signs involving cognitive functions following cerebral infarction; I10 Essential (primary) hypertension; E78.00 Pure hypercholesterolemia, unspecified; D68.61 Antiphospholipid syndrome; Z98.890 Other specified postprocedural states; Z79.82 Long term (current) use of aspirin; Z79.899 Other long term (current) drug therapy
CPT/HCPCS: 62328; 82945; 84157; 86335; 89051; J2003

== ENCOUNTER → 2025-08-31 10:08 | Outpatient (BNV) | payer OTHER, SELFPAY | PROVIDERS: PCP Internal Medicine; Visit Provider Radiology Diagnostic Radiology | DX: G37.9 Demyelinating disease of central nervous system, unspecified (principal) | CPT/HCPCS: 62328 ==

== ENCOUNTER → 2025-09-06 15:44 | Outpatient (BNV) | payer OTHER, SELFPAY | PROVIDERS: PCP Internal Medicine; Visit Provider Internal Medicine | DX: I63.9 Cerebral infarction, unspecified (principal); Z95.818 Presence of other cardiac implants and grafts | CPT/HCPCS: 93298 ==

== ENCOUNTER 2025-09-07 10:20 | Outpatient (AMB) | payer OTHER, SELFPAY ==
--- NOTE | 2025-09-07 10:34 | MHC.OFFVIS ---
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 He had an MRI at [place] that revealed acute infarction and he was admitted at [facility].His labs at [facility] in 2023 revealed AZEB of 320 and anticardiolipin antibody titer of 31.7. In Nov, he was at [facility] after a convulsion with loss of bowel control. Upon my review of MRI of brain, pattern of lesions was consistent with multiple sclerosis more than vascular disease. He is presenting for the evaluation of recent MRI findings and neurological symptoms. He has experienced right-sided frontal head pain, left facial drooping, and numbness since May. Initially considered to be due to a stroke, recent diagnostic imaging suggests Multiple Sclerosis as the primary contributing factor. Previous MRIs, which were performed out of town, were unavailable for review. Over time, his physical decline became apparent, with muscle and bone pain exacerbated by activity and increasing left-sided weakness since his last hospital admission. He recounted a recent episode of hand dysfunction indicative of neuromuscular impairment. The patient?s medical background includes antiphospholipid syndrome with elevated anticoagulated IgM titers, coronary artery disease with a heart attack occurring eight years prior, and a seizure disorder for which he remains on medication. Cognitive concerns include a diagnosis of dementia potentially exacerbated by both stroke history and MS lesions. 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 Seizure disorder Multiple cerebral infarctions Cognitive impairment Myocardial infarct Accelerated hypertension Left hemiparesis Pure hypercholesterolemia Acute CVA (cerebrovascular accident) Surgical History History of hernia repair History of kidney surgery Family History Mother Cancer Lung cancer Father Heart disease Social History Household Members: Spouse and Children Are you a primary managed care liaison to a significant other at home: No Do you presently have visiting nurse or other home services: No Alcohol intake: former Patient Tobacco Use Status: Never used Tobacco Second Hand Smoke Exposure: No Advance Directives Date on File: 06/03/25 service: Yes Current occupational status: unemployed Review of Systems Narrative - Neurological: Reports headaches, left-sided weakness, involuntary hand contractions, muscle and bone aches, seizures. Denies additional weakness outside described episodes. - Cardiovascular: Reports history of coronary artery disease and past heart attack. - Psychiatric: Reports dementia-related symptoms; denies hallucinations. Physical Exam Neuro Other: Mental Status: Alert and oriented to person, place, and time. Normal attention. Normal spontaneous speech, fluency, and comprehension. Cranial Nerves: CN II: Visual lloyd full to confrontation, visual acuity intact. CN III, IV, : Pupils equal, round, reactive to light and accommodation. Extraocular movements are normal. CN V: Facial sensation is normal. CN VII: Facial movements symmetrical. CN VIII: Hearing intact to bedside conversation is normal. CN IX, X: Palate elevates symmetrically. CN XI: Shoulder shrug and head turn symmetrical. CN XII: Tongue midline without atrophy or fasciculations. He is walking in a cautious gait with a cane. Extrapyramidal: Full facial expressions and blinking. No rigidity. Movements are appropriate with no tremor or abnormality. Speech: Normal; no dysarthria or tremor. Results Reviewed Results Reviewed: Laboratory Tests 08/31/25 11:36 CSF WBC 1 CSF RBC 0 CSF Glucose 57 CSF Total Protein 54.7 H CSF Immunofixation see note Assessment & Plan Assessment & Plan (1) Seizure disorder: Code(s): G40.909 - Epilepsy, unspecified, not intractable, without status epilepticus Category: Medical (2) Anticardiolipin antibody syndrome: Code(s): D68.61 - Antiphospholipid syndrome Category: Medical (3) Chronic progressive multiple sclerosis: Comment: LP at [facility] in 2024: WBCs 1, RBCs 0, Glu 57, Pro 54, IF OK MRI brain WO at [facility] in May 2025: Multiple lesions with a pattern suggestive of demyelinating disease instead of vascular, none acute CTA brain and neck at [facility] in May 2025: OK Code(s): G35.D - Multiple sclerosis, unspecified Category: Medical Plan Impression: a: Multiple sclerosis, chronic progressive b: Anticardiolipin syndrome but that would not explain the MRI findings c: Seizure disorder d: Fatigue related to MS e: Mild cognitive difficulties related to MS f: Whole body pain related to MS g: Gait disorder related to MS Rec: a: ASA + Plavix for stroke prevention b: Levetiracetam 500mg twice a day for seizure prevention c: DC Sertraline d: Duloxetine 30mg bid for pain e: Modafanil 100mg bid for fatigue Medications: New duloxetine 30 mg PO BID 180 caps 0RF modafinil 100 mg orally BID; 180 tabs 0RF Discontinued sertraline Discontinued Reason: Doctor's Order 50 mg (2 x 25 mg) PO DAILY 180 tabs 0RF Coding Level of Care Code Est Pt Level 5 (22265) Diagnoses Seizure disorder G40.909 Anticardiolipin antibody syndrome D68.61 Chronic progressive multiple sclerosis G35.D Time Spent (min) 45
--- OUTSIDE RECORDS SUMMARY | 2025-09-07 12:44 | XMS_ITS | Encounter Summary ---
Author Organization [employer] Address [address] [facility] 7[address] [place] [address] Care Team Providers Care Trimmer Sawyer Name Role Phone Kunal Alcala MD Primary Care Provider [phone] Encounter Details Date Type Department Care Team (Latest Contact Info) Description 08/17/2025 Results Follow-Up [facility] [address] [place] [address] Kunal Alcala MD [address] [place] [address] Lipid Panel with Reflex to Direct [...] Description 11/05/2025 9:20 AM EST Office Visit [facility] [address] [place] [address] Kunal Alcala MD [address] [place] [address] documented as of this encounter Visit Diagnoses Not on filedocumented in this encounter Additional Health Concerns Assessment Noted Time PHQ-9 Depression Total Score: 12 025 10:24 AM EDT documented as of this encounter Care Teams Trimmer Sawyer Relationship Specialty Start Date End Date Kunal Alcala MD [address] [place] [address] PCP - General Internal Medicine 08/04/25 documented as of this encounter
--- OUTSIDE RECORDS SUMMARY | 2025-09-07 12:45 | XMS_ITS | Clinical Summary ---
Author Organization [employer] Address [address] [facility] [address] [place] [address] Care Team Providers Care Automotive Service Writer Name Role Phone Kunal Alcala MD Primary Care Provider [phone] Allergies No known active allergies Medications amLODIPine (Norvasc) 5 MG tablet Take 2.5 mg by mouth Once per day. 12/10/2023 Active Aspirin (Vazalore) 81 MG capsule Take 1 capsule by mouth Once per day. Active atorvastatin (Lipitor) 80 MG tablet Take 80 mg by mouth Once per day. 12/10/2023 Active chlorthalidone (Hygroton) 25 MG tablet Take 25 mg by mouth Once per day. 06/10/2025 Active clopidogrel (Plavix) 75 MG tablet Take 75 mg by mouth Once per day. Active labetalol (Normodyne) 200 MG tablet Take 400 mg by mouth 2 times daily. 02/29/2024 Active levETIRAcetam (Keppra) 500 MG tablet Take 500 mg by mouth 2 times daily. 06/10/2025 Active lisinopril 40 MG tablet Take 40 mg by mouth Once per day. Active sertraline (Zoloft) 25 MG tablet Take 50 mg by mouth Once per day. Active Active Problems Problem Noted Date Diagnosed Date [...] Department Care Team Description 08/17/2025 Results Follow-Up [address] [phone] Kunal Alcala MD Lipid Panel with Reflex to Direct LDL, Comprehensive Metabolic Panel, HIV-1/2 Antigen and Antibodies, Fourth Generation, with Reflexes, Additional followed-up results: 2 08/11/2025 Orders Only [address] [phone] Kunal Alcala MD Class 2 severe obesity due to excess calories with serious comorbidity and body mass index (BMI) of 36.0 to 36.9 in adult (Primary Dx); Dyslipidemia; Coronary artery disease due to lipid rich plaque; CKD (chronic kidney disease) stage 2, GFR 60-89 ml/min; Resistant hypertension; Multiple sclerosis; History of stroke within last year 08/11/[address] [phone] Kunal Alcala MD 08/04/2025 10:00 AM EDT Office Visit [address] [phone] Kunal Alcala MD Encounter for immunization (Primary [...] Description 11/05/2025 9:20 AM EST Office Visit [facility] [address] [place] [phone] Kunal Alcala MD [address] [place] [address] Health Maintenance Due Date Last Done Comments CT Colonography 1965 Colonoscopy 1965 Colorectal Cancer Screening 1965 FIT DNA/Cologuard 1965 FIT 1965 FOBT 1965 Sigmoidoscopy 1965 Disability Screening 1965 DTaP/Tdap/Td Vaccines (1 - Tdap) 1984 Pneumococcal Vaccine: 50+ Years (1 of 2 - PCV) 1984 RSV Patients and Patients Aged 60 years or older (1 - Risk 50-74 years 1-dose series) 2015 Zoster Vaccines (1 of 2) 2015 [...] AM EDT) Cholesterol, Total 120 <200 mg/dL [facility] HDL Cholesterol 45 > OR = 40 mg/dL [facility] Triglycerides 48 <150 mg/dL [facility] LDL Cholesterol 61 mg/dL Q[facility] Comment: Reference range: <100 Desirable range <100 mg/dL for primary prevention; <70 mg/dL for patients with CHD or diabetic patients with > or = 2 CHD risk factors. LDL-C is now calculated using the Sukumar-Greta calculation, which is a validated novel method providing better accuracy than the Friedewald equation in the estimation of LDL-C. Sukumar SS et al. ASHELY. 2013;310(19): 1837-7398 (http://education.better./faq/BNK748) Chol/HDLC Ratio 2.7 <5.0 (calc) [facility] Non-HDL Cholesterol 75 <130 mg/dL [facility] Comment: For patients with diabetes plus 1 major ASCVD risk factor, treating to a non-HDL-C goal of <100 mg/dL (LDL-C of <70 mg/dL) is considered a therapeutic option. Blood 08/13/2025 8:09 AM EDT 08/13/2025 8:10 AM EDT Narrative [facility] - 08/14/2025 8:44 AM EDT FASTING:YES FASTING: YES Kunal Alcala MD LAB BLOOD ORDERABLES Final Res ult Performing Organization Address [facility] Co de Phone Number [address], [place] [address] [facility] [address] [place] [phone] * Hepatitis C Antibody with Reflex to HCV, RNA, Quantitative, Real-Time PCR (08/13/2025 8:09 AM EDT) Hepatitis C Antibody NON-REACT DENNIS NON-REACT DENNIS [facility] Comment: HCV antibody was non-reactive. There is no laboratory evidence of HCV infection. In most cases, no further action is required. However, if recent HCV exposure is suspected, a test for HCV RNA (test code 69586) is suggested. For additional information please refer to http://education.HealthUnlocked/faq/VTM47c6 (This link is being provided for informational/ educational purposes only.) Blood Venous blood specimen / Unknown 08/13/2025 8:09 AM EDT 08/13/2025 8:10 AM EDT Narrative [facility] - 08/14/2025 8:44 AM EDT FASTING:YES FASTING: YES us Kunal Alcala MD LAB BLOOD ORDERABLES Final Res ult Performing Organization Address [facility] Co de Phone Number [address], [facility] [place] [address] [facility] [address] [place] [phone] * HIV-1/2 Antigen and Antibodies, Fourth Generation, with Reflexes (08/13/2025 8:09 AM EDT) HIV Final Interpretation HIV NEGATIVE [facility] Comment: HIV-1 antigen and HIV-1/HIV-2 antibodies were not detected. There is no laboratory evidence of HIV infection. HIV Antigen/Antibody, 4th Generation NON-REACTIV E NON-REAC TIVE [facility] Blood Venous blood specimen / Unknown 08/13/2025 8:09 AM EDT 08/13/2025 8:10 AM EDT Narrative [facility] - 08/14/2025 8:44 AM EDT FASTING:YES FASTING: YES Kunal Alcala MD LAB BLOOD ORDERABLES Final Res ult Performing Organization Address [facility] Co de Phone Number [facility] [address], [place] [address] [facility] [address] [place] [address] * Hemoglobin A1c (08/13/2025 8:09 AM EDT) Pathologist [facility] Hemoglobin A1c 5.4 <5.7 % [facility] Comment: For the purpose of screening for the presence of diabetes: <5.7% Consistent with the absence of diabetes 5.7-6.4% Consistent with increased risk for diabetes (prediabetes) > or =6.5% Consistent with diabetes This assay result is consistent with a decreased risk of diabetes. Currently, no consensus exists regarding use of hemoglobin A1c for diagnosis of diabetes in children. According to [place] Diabetes [employer] (ADA) guidelines, hemoglobin A1c <7.0% represents optimal control in non- diabetic patients. Different metrics may apply to specific patient populations. Standards of Medical Care in Diabetes(ADA). Blood Venous blood specimen / Unknown 08/13/2025 8:09 AM EDT 08/13/2025 8:10 AM EDT Narrative [facility] - 08/14/2025 8:44 AM EDT FASTING:YES FASTING: YES Kunal Alcala MD LAB BLOOD ORDERABLES Final Res ult [facility] [address], [place] [address] [facility] [address] [place] [address] * Comprehensive Metabolic Panel (08/13/2025 8:09 AM EDT) Glucose 89 65 - 99 mg/dL [facility] Comment: Fasting reference interval Urea Nitrogen (BUN) 18 7 - 25 mg/dL [facility] Creatinine, Serum 1.17 0.70 - 1.35 mg/dL [facility] eGFR 71 > OR = 60 mL/min/1. 73m2 [facility] BUN/Creatinine Ratio SEE NOTE: 6 - 22 (calc) [facility] Comment: Not Reported: BUN and Creatinine are within reference range. Sodium 140 135 - 146 mmol/L [facility] Potassium 3.8 3.5 - 5.3 mmol/L [facility] Chloride 101 98 - 110 mmol/L [facility] Carbon Dioxide 28 20 - 32 mmol/L [facility] Calcium 9.3 8.6 - 10.3 mg/dL [facility] Protein, Total 6.3 6.1 - 8.1 g/dL [facility] Albumin 4.3 3.6 - 5.1 g/dL [facility] Globulin 2.0 1.9 - 3.7 g/dL (calc) [facility] Albumin/Globuli n Ratio 2.2 1.0 - 2.5 (calc) [facility] Bilirubin, Total 0.7 0.2 - 1.2 mg/dL [facility] Alkaline Phosphatase 114 35 - 144 U/L [facility] AST 27 10 - 35 U/L [facility] ALT 44 9 - 46 U/L [facility] Blood Venous blood specimen / Unknown 08/13/2025 8:09 AM EDT 08/13/2025 8:10 AM EDT Narrative [facility] - 08/14/2025 8:44 AM EDT FASTING:YES FASTING: YES us Kunal Alcala MD LAB BLOOD ORDERABLES Final Res ult [facility] [address], [place] [address] [facility] [address] [place] [address] from Last 3 Months Insurance [facility] Care Teams Automotive Service Writer Relationship Specialty Start Date End Date Kunal Alcala MD [address] [place] [id number] PCP - General Internal Medicine 08/04/25
--- OUTSIDE RECORDS SUMMARY | 2025-09-07 12:45 | XMS_ITS | Clinical Summary ---
Author Organization [facility] Address [address] [place] [address] Care Team Providers Care Senior Architect/Design Manager Name Role Phone Rush Martin MD Primary [...] age to complete this topic Care Teams Senior Architect/Design Manager Relationship Specialty Start Date End Date Rush Martin MD PCP - General Internal Medicine 12/24/23
--- OUTSIDE RECORDS SUMMARY | 2025-09-07 12:45 | XMS_ITS | Clinical Summary ---
Author Organization [facility] Address [address] [place] [address] Phone Care Team Providers Care Transmitter Engineer Name Role Phone Rush Martin MD Primary Care Provider [phone] Allergies No known active allergies Medications amLODIPine [...] Care Team Description 07/01/2025 Telephone Internal Medicine [address] [phone] Rush Martin MD 06/23/2025 [facility] [address] [phone] [place] 06/23/2025 [facility] [address] [phone] [place] 06/19/2025 [facility] [address] [phone] Rush Martin MD 06/12/2025 [facility] [address] [phone] Rush Martin MD 06/11/2025 2:30 PM EDT Office Visit Internal [address] [phone] Rush Martin MD Hospital discharge follow-up (Primary Dx); TIA (transient ischemic attack); Hypercholesterolemia; Primary hypertension 06/10/2025 [facility] [address] [phone] Rush Martin MD 06/10/2025 [facility] [address] [phone] Rush Martin MD from Last 3 Months [...] patient's age to complete this topic Insurance [facility] Care Teams Transmitter Engineer Relationship Specialty Start Date End Date Rush Martin MD [address] [facility] [address] [place] [address] PCP - General 12/24/23
== END 2025-09-07 10:54 | disposition home or self-care (01) ==
LOC: HO.HSM 10:21
PROVIDERS: PCP Internal Medicine; Visit Provider Psychiatry & Neurology Neurology
DX: G40.909 Epilepsy, unspecified, not intractable, without status epilepticus (principal); D68.61 Antiphospholipid syndrome; G35.D Multiple sclerosis, unspecified
CPT/HCPCS: 99215

== ENCOUNTER → 2025-09-07 10:20 | Outpatient (BNVA) | payer OTHER, SELFPAY | PROVIDERS: PCP Internal Medicine; Visit Provider Psychiatry & Neurology Neurology | DX: D68.61 Antiphospholipid syndrome (principal); G40.909 Epilepsy, unspecified, not intractable, without status epilepticus; G35.D Multiple sclerosis, unspecified | CPT/HCPCS: 99212 ==

== ENCOUNTER → 2025-10-06 08:35 | Outpatient (BNV) | payer OTHER, SELFPAY | PROVIDERS: PCP Internal Medicine; Visit Provider Internal Medicine | DX: I63.9 Cerebral infarction, unspecified (principal) | CPT/HCPCS: 93298 ==